=== PATIENT | male | born 1935 | race Caucasian/White ===

== ENCOUNTER 2017-11-12 05:45 | Day surgery (SDC) | payer MEDICARE, BC ==
[2017-11-12] MEDS ORDERED: Midazolam 1 MG/ML 2 ML SDV ONE (06:19)
[2017-11-12] MEDS ORDERED: fentaNYL 100 MCG/2 ML SDV ONE ×2 (06:19→06:21)
[2017-11-12] MEDS: Sodium Chloride 0.9% 10 ML Syringe FLUSH PRN (06:21)
[2017-11-12] MEDS: Dextrose 5%-0.45% NaCl 1,000 ML IV SCH (06:21)
[2017-11-12] MEDS: fentaNYL 100 MCG/2 ML SDV IV ONE ×2 (07:06→07:07)
[2017-11-12] MEDS: Midazolam 1 MG/ML 2 ML SDV IV ONE ×4 (07:07→07:20)
--- NOTE | 2017-11-12 08:26 | OR ---
DATE: 11/12/2017 PROCEDURE PERFORMED: Total colonoscopy. INSTRUMENT USED: PCF-H180AL Olympus video colonoscope. PREMEDICATIONS: Fentanyl 100 mcg intravenous and Versed 3 mg intravenous. Nasal O2 cannula. The procedure was done under pulse oximetry, BP recording, and case monitor. INDICATION: The patient with progressive constipation, unexplained and not responsive to medical measures. Colonoscopic examination is done for detection of any polypoid lesions and removal, endoscopic hemostasis therapy if needed. DESCRIPTION OF PROCEDURE: Initial rectal exam was unremarkable. Rigid anoscopy was normal. The colonoscope was passed with ease up to the ileocecal area, photographs were taken of the normal-appearing cecum identified by landmark of double-bulged ileocecal folds. No bleeding was noted from any of the visualized areas at the commencement of the examination. No stricture. No vascular ectasia. No large isolated ulcerations seen. No evidence of diffuse inflammatory bowel disease in the form of friability, contact bleeding, or ulcerations. No polyp or tumor mass identified. Probing the proximal sides of folds and flexures, using adequate distention and clearing of the stool material, withdrawal of the scope was made, cecum to rectum time over 6 minutes. No bleeding was noted from any of the visualized areas at the completion of examination. IMPRESSION: Normal study. The patient tolerated the procedure well. [facility] /[id number]
== END 2017-11-12 09:30 | disposition home or self-care (01) ==
LOC: DL.ENDO 05:45
PROVIDERS: ATTEND Internal Medicine Gastroenterology
DX: K59.00 Constipation, unspecified (principal); I10 Essential (primary) hypertension; E03.9 Hypothyroidism, unspecified; F41.1 Generalized anxiety disorder; E87.6 Hypokalemia; Z88.8 Allergy status to other drugs, medicaments and biological substances
CPT/HCPCS: 45378; J2250; J7042; J7050; J3010

== ENCOUNTER 2020-06-18 12:11 | Inpatient (IN) | payer MEDICARE, BC, OTHER ==
[2020-06-18] MEDS ORDERED: Ondansetron 4 MG Tab.DIS PO PRN (12:44)
[2020-06-18] MEDS ORDERED: Docusate Sodium 100 MG Cap PO PRN (12:44)
[2020-06-18] MEDS ORDERED: Acetaminophen 325 MG Tab PO PRN (12:44)
[2020-06-18] MEDS ORDERED: Potassium Chloride 20 MEQ in Premix Bag 1 BAG IV ONE (13:00)
[2020-06-18] MEDS ORDERED: Levothyroxine 25 MCG Tab PO SCH (13:00)
[2020-06-18 13:49] LABS: ANION GAP 13.4 mEq/L (7-13)
[2020-06-18] MEDS: Dexamethasone 4 MG/ML SDV IVPUSH SCH (14:03)
[2020-06-18] MEDS: Sodium Chloride 0.9% 1,000 ML IV SCH ×2 (14:09→21:02)
--- NOTE | 2020-06-18 19:16 | HP ---
CHIEF COMPLAINT: Generalized weakness and hypokalemia. HISTORY OF PRESENT ILLNESS: The patient is an 85-year-old gentleman who was admitted directly from [facility] [address] in [facility] because the patient was seen by Dr. Jonas today and the patient has been complaining of just feeling weak, poor appetite, and his legs were buckling, and almost fell because of the weakness. He was seen at the clinic and had some lab workup done. Potassium was remarkable for low potassium of 2.5. Because of this and signs of dehydration, the patient was then admitted for further evaluation and management. The patient denies though any fever, chills, chest pain, shortness of breath, diarrhea, abdominal pain, nor any other complaints. PAST MEDICAL HISTORY: Remarkable for bladder cancer, is being followed by Dr. Ramon. He has history of hypertension, hypothyroidism. FAMILY HISTORY: Noncontributory. SOCIAL HISTORY: The patient is a nonsmoker, non-alcohol drinker. REVIEW OF SYSTEMS: As in HPI. The rest of the review of systems is negative. MEDICATIONS: Amlodipine, potassium chloride, Keytruda, levothyroxine, fish oral, chlorthalidone, aspirin. ALLERGIES: Lipitor. PHYSICAL EXAMINATION: General: The patient is alert and oriented, but looks weak, not in any acute distress. Vital Signs: Blood pressure is 164/91, pulse of 73, respirations of 18, temperature of 98.4. SHEENT: Normocephalic. Skin turgor diminished. Mucous membranes dry. There are pink palpebral conjunctivae. Sclerae anicteric. No JVD. No lymphadenopathy. Heart: Regular rate and rhythm. Normal S1 and S2. No gallops. No rubs. Lungs: Equal bilaterally. No crackles, no wheezing. Abdomen: Soft, nontender. Bowel sounds positive. Extremities: Negative for any pedal edema. No calf tenderness. LABORATORY DATA: Lab workup from the clinic magnesium is 1.9, creatinine is 1.7, potassium is 2.5. IMPRESSION: 1. Hypokalemia. 2. Generalized weakness. 3. Dehydration. 4. Hypertension. 5. History of bladder cancer. TREATMENT PLAN: The patient is going to be admitted to General Medicine floor. He will be started on IV fluids and potassium repleted. He will be placed on telemetry while potassium being repleted. We will also check for a CBC, a urinalysis, and we will also check the patient for COVID-19 and the rest of the management as necessary. The patient is full code. [facility] /[id number]
[2020-06-18] MEDS: Potassium Chloride 10 MEQ Tab.ER PO SCH (20:53)
[2020-06-19] MEDS: Sodium Chloride 0.9% 1,000 ML IV SCH ×3 (05:00→21:20)
[2020-06-19] MEDS: Levothyroxine 50 MCG Tab PO SCH (05:03)
[2020-06-19] MEDS: Levothyroxine 25 MCG Tab PO SCH (05:04)
[2020-06-19] MEDS: Potassium Chloride 10 MEQ Tab.ER PO SCH ×2 (08:15→21:19)
[2020-06-19] MEDS: amLODIPine 5 MG Tab PO SCH (08:15)
[2020-06-19] MEDS: Enoxaparin 30 MG/0.3 ML Syringe SUBCUT SCH (08:16)
[2020-06-19] MEDS: Dexamethasone 4 MG/ML SDV IVPUSH SCH (08:16)
[2020-06-19] MEDS ORDERED: Potassium Chloride 10 MEQ Tab.ER PO ONE (08:32)
--- NOTE | 2020-06-19 09:02 | PN ---
DATE: 06/19/2020 SUBJECTIVE: The patient is feeling much better this morning as compared to yesterday. His appetite is slowly improving. The patient denies any chest pain or shortness of breath, fever, chills, abdominal pain, or any other complaints. LABORATORY WORKUP: This morning, potassium is 2.7, which is still low. BUN is 24, glucose is 122. The rest of the lab workup is within normal limits. OBJECTIVE: Vital Signs: Blood pressure is 148/78, pulse of 58, respirations of 18, temperature of 98.2, saturation is 97% on room air. Heart: Regular rate and rhythm. Normal S1 and S2. No gallops. No rubs. Lungs: Equal bilaterally. No crackles. No wheezing. Abdomen: Soft, nontender. Bowel sounds positive. Extremities: Negative for any pedal edema. No calf tenderness. MEDICATIONS: Reviewed. PLAN: We will continue with his present management. I am going to give additional potassium today and we will recheck potassium in a.m. [facility] /[id number]
[2020-06-19 10:42] LABS: ANION GAP 12.7 mEq/L (7-13)
[2020-06-19] MEDS: Aspirin 81 MG Tab.EC PO SCH (12:23)
[2020-06-20] MEDS: Levothyroxine 50 MCG Tab PO SCH ×2 (04:47→05:16)
[2020-06-20] MEDS: Levothyroxine 25 MCG Tab PO SCH ×2 (04:47→05:16)
[2020-06-20 06:46] LABS: ANION GAP 10.2 mEq/L (7-13); CHLORIDE,CL 102 mmol/L (98-107); SODIUM,NA 137 mmol/L (136-145)
[2020-06-20] MEDS: amLODIPine 5 MG Tab PO SCH (08:14)
[2020-06-20] MEDS: Aspirin 81 MG Tab.EC PO SCH (08:14)
[2020-06-20] MEDS: Enoxaparin 30 MG/0.3 ML Syringe SUBCUT SCH (08:14)
[2020-06-20] MEDS: Potassium Chloride 10 MEQ Tab.ER PO SCH ×3 (08:14→17:40)
[2020-06-20] MEDS ORDERED: Dexamethasone 2 MG Tab PO ONE (16:20)
[2020-06-20] MEDS: Dexamethasone 4 MG/ML SDV IVPUSH SCH (16:28)
[2020-06-20] MEDS ORDERED: Potassium Chloride 10 MEQ Tab.ER PO ONE (18:01)
[2020-06-20] MEDS: Sodium Chloride 0.9% 1,000 ML IV SCH (18:19)
[2020-06-20] MEDS: Potassium Chloride 10 MEQ in Premix Bag 1 BAG IV SCH ×5 (18:23→22:57)
--- NOTE | 2020-06-20 19:42 | PCM.PN ---
- General Info Date of Service: 06/20/20 Subjective Update: Patient seen and examined today. He is improving but cannot say exactly how. He is not requiring oxygen. He was anticipating discharge today however, potassium low at 2.7. Functional Status: Reports: Pain Controlled - Review of Systems General: Reports: Weakness HEENT: Reports: No Symptoms Pulmonary: Reports: Cough. Denies: Shortness of Breath Cardiovascular: Reports: No Symptoms Gastrointestinal: Reports: No Symptoms Genitourinary: Reports: No Symptoms Musculoskeletal: Reports: No Symptoms Skin: Reports: No Symptoms Neurological: Reports: No Symptoms Psychiatric: Reports: No Symptoms - Patient Data Vitals - Most Recent: Last Vital Signs Temp 98.4 F 06/20/20 16:00 Pulse 62 06/20/20 16:00 Resp 18 06/20/20 16:00 BP 138/65 06/20/20 16:00 Pulse Ox 100 06/20/20 16:00 Weight - Most Recent: 136 lb I&O - Last 24 Hours: Intake & Output 06/20/20 06/20/20 06/20/20 06:59 14:59 22:59 Intake Total 200 340 300 Output Total 375 Balance -175 340 300 Lab Results Last 24 Hours: Laboratory Results - last 24 hr 06/20/20 06/20/20 06/20/20 Range/Units 06:18 06:18 16:53 Sodium 137 (136-145) mmol/L Potassium 3.2 L 2.7 L (3.5-5.1) mmol/L Chloride 102 (98-107) mmol/L Carbon Dioxide 28 (21-32) mmol/L Anion Gap 10.2 (7-13) mEq/L BUN 20 H (7-18) mg/dL Creatinine 1.14 (0.70-1.30) mg/dL Est Cr Clr Drug Dosing 42.09 mL/min Estimated GFR (MDRD) > 60 Glucose 100 H (74-99) mg/dL Calcium 8.2 L (8.5-10.1) mg/dL Magnesium 1.7 L (1.8-2.4) mg/dL Med Orders - Current: Current Medications Acetaminophen (Tylenol) 650 mg PO Q4H PRN PRN Reason: Pain (Mild 1-3)/fever Amlodipine Besylate (Norvasc) 5 mg PO DAILY [facility] Last Admin: 06/20/20 08:14 Dose: 5 mg Documented by: Aspirin (Halfprin) 81 mg PO DAILY [facility] Last Admin: 06/20/20 08:14 Dose: 81 mg Documented by: Dexamethasone (Dexamethasone) 6 mg IVPUSH DAILY [facility] Stop: 06/27/20 09:01 Last Admin: 06/20/20 16:28 Dose: Not Given Documented by: Docusate Sodium (Colace) 100 mg PO BID PRN PRN Reason: Constipation Enoxaparin Sodium (Lovenox) 30 mg SUBCUT DAILY [facility] Last Admin: 06/20/20 08:14 Dose: 30 mg Documented by: Sodium Chloride (Normal Saline) 1,000 mls @ 125 mls/hr IV ASDIRECTED [facility] Last Admin: 06/20/20 18:19 Dose: 125 mls/hr Documented by: Potassium Chloride 10 meq/ (Premix) 100 mls @ 100 mls/hr IV Q1H [facility] Stop: 06/20/20 23:59 Last Admin: 06/20/20 19:33 Dose: 100 mls/hr Documented by: Levothyroxine Sodium (Levothyroxine) 12.5 mcg PO ACBREAKFAST [facility] Last Admin: 06/20/20 05:16 Dose: Not Given Documented by: Levothyroxine Sodium (Synthroid) 50 mcg PO ACBREAKFAST [facility] Last Admin: 06/20/20 05:16 Dose: Not Given Documented by: Ondansetron HCl (Zofran Odt) 4 mg PO Q4H PRN PRN Reason: nausea, able to take PO Last Admin: 06/19/20 08:16 Dose: 4 mg Documented by: Potassium Chloride (Klor-Con 10) 20 meq PO BIDMEALS [facility] Last Admin: 06/20/20 17:40 Dose: Not Given Documented by: Discontinued Medications Dexamethasone (Dexamethasone) 6 mg PO ONETIME ONE Stop: 06/20/20 16:21 Last Admin: 06/20/20 16:51 Dose: 6 mg Documented by: Potassium Chloride 20 meq/ (Premix) 100 mls @ 50 mls/hr IV ONETIME ONE Stop: 06/18/20 14:59 Last Admin: 06/18/20 14:02 Dose: 50 mls/hr Documented by: Influenza Virus Vaccine (Pharmacy To Dose - Influenza Vaccine) 1 each IM DAILY [facility] Last Admin: 06/20/20 17:40 Dose: Not Given Documented by: Influenza Virus Vaccine (Fluad Quad Syringe) 60 mcg IM .ONCE ONE Stop: 06/20/20 16:31 Potassium Chloride (Klor-Con 10) 20 meq PO BID [facility] Last Admin: 06/19/20 21:19 Dose: 20 meq Documented by: Potassium Chloride (Klor-Con 10) 40 meq PO ONETIME ONE Stop: 06/19/20 08:33 Last Admin: 06/19/20 09:03 Dose: 40 meq Documented by: Potassium Chloride (Klor-Con 10) 40 meq PO ONETIME ONE Stop: 06/20/20 18:02 Last Admin: 06/20/20 18:25 Dose: 40 meq Documented by: - Exam General: Alert, Oriented HEENT: Pupils Equal, Pupils Reactive, EOMI, Mucous Membr. Moist/[place] Neck: Supple Lungs: Clear to Auscultation, Normal Respiratory Effort Cardiovascular: Regular Rate, Regular Rhythm GI/Abdominal Exam: Normal Bowel Sounds, Soft, Non-Tender, No Organomegaly, No Distention, No Abnormal Bruit, No Mass, Pelvis Stable Back Exam: Normal Inspection, Full Range of Motion Extremities: Normal Inspection, Normal Range of Motion, Non-Tender, No Pedal Edema, Normal Capillary Refill Skin: Warm, Dry, Intact Neurological: No New Focal Deficit Psy/Mental Status: Alert, Normal Affect, Normal Mood Sepsis Event Note - Evaluation Sepsis Screening Result: No Definite Risk - Focused Exam Vital Signs: Vital Signs Temp Pulse Resp BP BP Pulse Ox 06/20/20 16:00 98.4 F 62 18 138/65 100 06/20/20 12:00 98.5 F 62 18 126/61 97 06/20/20 08:14 139/81 06/20/20 08:00 98.2 F 59 L 18 139/81 98 - Problem List Review Problem List Initiated/Reviewed/Updated: Yes - My Orders Last 24 Hours: My Active Orders 06/20/20 18:00 Potassium Chloride [KCl 10 MEQ in Water 100 ML] 10 meq Premix Bag 1 bag IV Q1H - Plan Plan:: Hypokalemia Potassium still low at 2.7 Replace more aggressively with IV potassium 60 mEq and p.o. potassium 60 mEq tonight Repeat potassium check tomorrow morning COVID-19 infection Continue dexamethasone and Lovenox Generalized weakness Encourage oral intake Hypertension Continue antihypertensives Dehydration Encourage oral fluids
[2020-06-21] MEDS: Potassium Chloride 10 MEQ in Premix Bag 1 BAG IV SCH (00:22)
[2020-06-21] MEDS: Sodium Chloride 0.9% 1,000 ML IV SCH (01:30)
[2020-06-21] MEDS: Levothyroxine 50 MCG Tab PO SCH (06:31)
[2020-06-21] MEDS: Levothyroxine 25 MCG Tab PO SCH (06:31)
[2020-06-21 07:01] LABS: ANION GAP 11.9 mEq/L (7-13); CHLORIDE,CL 103 mmol/L (98-107); SODIUM,NA 137 mmol/L (136-145)
[2020-06-21] MEDS: Dexamethasone 4 MG/ML SDV IVPUSH SCH (08:15)
[2020-06-21] MEDS: Potassium Chloride 10 MEQ Tab.ER PO SCH (08:15)
[2020-06-21] MEDS: Aspirin 81 MG Tab.EC PO SCH (08:15)
[2020-06-21] MEDS: amLODIPine 5 MG Tab PO SCH (08:16)
[2020-06-21] MEDS: Enoxaparin 30 MG/0.3 ML Syringe SUBCUT SCH (08:18)
--- NOTE | 2020-06-21 11:20 | PCM.DCSUM1 ---
Discharge Summary - Hospital Course Free Text/Narrative:: Patient is an 85-year-old male with a medical history of bladder cancer, hypertension, chronic hypokalemia and hypothyroidism who presented with generalized weakness and poor appetite. Patient was found to have severe hypokalemia with a potassium of 2.5 and he was dehydrated. He reported not being compliant with his home potassium medication. He also tested positive for COVID-19. Patient had potassium aggressively replaced and received IV fluids. Hospitalization course was unremarkable. Diagnosis: Stroke: No - Discharge Data Discharge Date: 06/21/20 Discharge Disposition: Home, Self-Care 01 Condition: Good - Referral to Home Health Primary Care Physician: Phani Jonas MD - Discharge Plan *PRESCRIPTION DRUG MONITORING PROGRAM REVIEWED*: Not Applicable *COPY OF PRESCRIPTION DRUG MONITORING REPORT IN PATIENT YUNIEL: Not Applicable Prescriptions/Med Rec: dexAMETHasone [Dexamethasone] 6 mg PO DAILY #6 tab Rivaroxaban [Xarelto] 10 mg PO DAILY #30 tab Home Medications: Home Meds Chlorthalidone 25 mg PO DAILY 11/11/17 [History] Docusate Sodium 100 mg PO ASDIRECTED PRN 11/11/17 [History] Pembrolizumab [Keytruda] 1 dose IV .[id number] 11/11/17 [History] Potassium Chloride [Klor-Con M20] 40 meq PO BID 11/11/17 [History] amLODIPine [Norvasc] 5 mg PO DAILY 11/11/17 [History] Levothyroxine 12.5 mcg PO DAILY 06/18/20 [History] Levothyroxine [Synthroid] 50 mcg PO ACBREAKFAST 06/18/20 [History] Pravastatin [Pravachol] 20 mg PO DAILY 06/18/20 [History] Rivaroxaban [Xarelto] 10 mg PO DAILY #30 tab 06/21/20 [Rx] dexAMETHasone [Dexamethasone] 6 mg PO DAILY #6 tab 06/21/20 [Rx] Referrals: Martinez Jonas MD [Primary Care Provider] - - Discharge Summary/Plan Comment DC Time >30 min.: Yes - General Info Date of Service: 06/21/20 Admission Dx/Problem (Free Text: Generalized weakness COVID-19 infection Severe hypokalemia Dehydration Subjective Update: Patient seen and examined today. He is not requiring oxygen. Discussed with patient to be compliant with his potassium. Functional Status: Reports: Pain Controlled - Review of Systems General: Reports: No Symptoms HEENT: Reports: No Symptoms Pulmonary: Reports: No Symptoms Cardiovascular: Reports: No Symptoms Gastrointestinal: Reports: No Symptoms Genitourinary: Reports: No Symptoms Musculoskeletal: Reports: No Symptoms Skin: Reports: No Symptoms Neurological: Reports: No Symptoms Psychiatric: Reports: No Symptoms - Patient Data Vitals - Most Recent: Last Vital Signs Temp 98.4 F 06/21/20 08:00 Pulse 61 06/21/20 08:00 Resp 18 06/21/20 08:00 BP 151/85 H 06/21/20 08:16 Pulse Ox 98 06/21/20 08:00 Weight - Most Recent: 136 lb I&O - Last 24 hours: Intake & Output 06/20/20 06/21/20 06/21/20 22:59 06:59 14:59 Intake Total 1418 1246 120 Output Total 400 500 Balance 1018 746 120 Lab Results - Last 24 hrs: Laboratory Results - last 24 hr 06/20/20 06/21/20 Range/Units 16:53 06:25 Sodium 137 (136-145) mmol/L Potassium 2.7 L 3.9 (3.5-5.1) mmol/L Chloride 103 (98-107) mmol/L Carbon Dioxide 26 (21-32) mmol/L Anion Gap 11.9 (7-13) mEq/L BUN 18 (7-18) mg/dL Creatinine 1.08 (0.70-1.30) mg/dL Est Cr Clr Drug Dosing 44.43 mL/min Estimated GFR (MDRD) > 60 Glucose 118 H (74-99) mg/dL Calcium 7.8 L (8.5-10.1) mg/dL Med Orders - Current: Current Medications Acetaminophen (Tylenol) 650 mg PO Q4H PRN PRN Reason: Pain (Mild 1-3)/fever Amlodipine Besylate (Norvasc) 5 mg PO DAILY [facility] Last Admin: 06/21/20 08:16 Dose: 5 mg Documented by: Aspirin (Halfprin) 81 mg PO DAILY [facility] Last Admin: 06/21/20 08:15 Dose: 81 mg Documented by: Dexamethasone (Dexamethasone) 6 mg IVPUSH DAILY [facility] Stop: 06/27/20 09:01 Last Admin: 06/21/20 08:15 Dose: 6 mg Documented by: Docusate Sodium (Colace) 100 mg PO BID PRN PRN Reason: Constipation Enoxaparin Sodium (Lovenox) 30 mg SUBCUT DAILY [facility] Last Admin: 06/21/20 08:18 Dose: 30 mg Documented by: Sodium Chloride (Normal Saline) 1,000 mls @ 125 mls/hr IV ASDIRECTED [facility] Last Admin: 06/21/20 01:30 Dose: 125 mls/hr Documented by: Levothyroxine Sodium (Levothyroxine) 12.5 mcg PO ACBREAKFAST [facility] Last Admin: 06/21/20 06:31 Dose: 12.5 mcg Documented by: Levothyroxine Sodium (Synthroid) 50 mcg PO ACBREAKFAST [facility] Last Admin: 06/21/20 06:31 Dose: 50 mcg Documented by: Ondansetron HCl (Zofran Odt) 4 mg PO Q4H PRN PRN Reason: nausea, able to take PO Last Admin: 06/19/20 08:16 Dose: 4 mg Documented by: Potassium Chloride (Klor-Con 10) 20 meq PO BIDMEALS [facility] Last Admin: 06/21/20 08:15 Dose: 20 meq Documented by: Discontinued Medications Dexamethasone (Dexamethasone) 6 mg PO ONETIME ONE Stop: 06/20/20 16:21 Last Admin: 06/20/20 16:51 Dose: 6 mg Documented by: Potassium Chloride 20 meq/ (Premix) 100 mls @ 50 mls/hr IV ONETIME ONE Stop: 06/18/20 14:59 Last Admin: 06/18/20 14:02 Dose: 50 mls/hr Documented by: Potassium Chloride 10 meq/ (Premix) 100 mls @ 100 mls/hr IV Q1H [facility] Stop: 06/20/20 23:59 Last Infusion: 06/21/20 01:29 Dose: Infused Documented by: Influenza Virus Vaccine (Pharmacy To Dose - Influenza Vaccine) 1 each IM DAILY [facility] Last Admin: 06/20/20 17:40 Dose: Not Given Documented by: Influenza Virus Vaccine (Fluad Quad [id number] Syringe) 60 mcg IM .ONCE ONE Stop: 06/21/20 11:01 Last Admin: 06/21/20 11:11 Dose: 60 mcg Documented by: Potassium Chloride (Klor-Con 10) 20 meq PO BID [facility] Last Admin: 06/19/20 21:19 Dose: 20 meq Documented by: Potassium Chloride (Klor-Con 10) 40 meq PO ONETIME ONE Stop: 06/19/20 08:33 Last Admin: 06/19/20 09:03 Dose: 40 meq Documented by: Potassium Chloride (Klor-Con 10) 40 meq PO ONETIME ONE Stop: 06/20/20 18:02 Last Admin: 06/20/20 18:25 Dose: 40 meq Documented by: - Exam General: Reports: Alert, Oriented HEENT: Reports: Pupils Equal, Pupils Reactive, EOMI, Mucous Membr. Moist/[place] Neck: Reports: Supple Lungs: Reports: Clear to Auscultation, Normal Respiratory Effort Cardiovascular: Reports: Regular Rate, Regular Rhythm GI/Abdominal Exam: Normal Bowel Sounds, Soft, Non-Tender, No Organomegaly, No Distention, No Abnormal Bruit, No Mass, Pelvis Stable Back Exam: Reports: Normal Inspection, Full Range of Motion Extremities: Normal Inspection, Normal Range of Motion, Non-Tender, No Pedal Edema, Normal Capillary Refill Skin: Reports: Warm, Dry, Intact Neurological: Reports: No New Focal Deficit Psy/Mental Status: Reports: Alert, Normal Affect, Normal Mood
== END 2020-06-21 13:20 | disposition home or self-care (01) | DRG 640 ==
LOC: DL.MS 12:11
PROVIDERS: ADMIT Internal Medicine; ATTEND Internal Medicine
PROC: 3E02340 Introduction of Influenza Vaccine into Muscle, Percutaneous Approach (ICD-10-PCS; principal; 2020-06-18)
PROC: 8E0ZXY6 Isolation (ICD-10-PCS; 2020-06-18)
DX: E87.6 Hypokalemia (principal); U07.1 COVID-19; E86.0 Dehydration; I10 Essential (primary) hypertension; E03.9 Hypothyroidism, unspecified; Z85.51 Personal history of malignant neoplasm of bladder; Z23 Encounter for immunization; Z88.8 Allergy status to other drugs, medicaments and biological substances; Z79.899 Other long term (current) drug therapy
CPT/HCPCS: 36415; 80048; 80053; 81001; 83735; 84132; 85025; 85379; 86140; 90653; A9270-GY; G0008; J1100; J1650; J3480; J7030; J8540; U0002

== ENCOUNTER 2021-04-29 20:30 | Observation (INO) | payer MEDICARE, BC ==
[2021-04-29] MEDS ORDERED: Sodium Chloride 0.9% 1,000 ML IV ONE (21:20)
[2021-04-29 22:11] LABS: ANION GAP 16.8 mEq/L (7-13)
--- NOTE | 2021-04-29 22:14 | CT ---
PROCEDURE INFORMATION: Exam: CT Head Without Contrast Exam date and time: 04/29/2021 9:33 PM Age: 86 years old Clinical indication: Other: Weakness, nausea TECHNIQUE: Imaging protocol: Computed tomography of the head without contrast. Total images: 148 Radiation optimization: All CT scans at this facility use at least one of these dose optimization techniques: automated exposure control; mA and/or kV adjustment per patient size (includes targeted exams where dose is matched to clinical indication); or iterative reconstruction. COMPARISON: No relevant prior studies available. FINDINGS: Brain: Deep white matter hypodensity compatible with chronic small vessel ischemic change. Cerebral ventricles: Prominent cerebral ventricles. Paranasal sinuses: Visualized sinuses are unremarkable. No fluid levels. Mastoid air cells: Visualized mastoid air cells are well aerated. Vasculature: Marked calcification involving the right and left carotid arteries. also marked calcification involving segments of the right and left MCAs. Bones/joints: Unremarkable. No acute fracture. Soft tissues: See "Vasculature" finding. IMPRESSION: 1. No acute intracranial process. 2. Prominent calcification of the carotid arteries including prominent segmental areas of calcification right and left MCAs. 3. Prominent ventricles possibly out of proportion to degree of volume loss. Correlate clinically for any evidence of underlying normal pressure hydrocephalus.
--- NOTE | 2021-04-29 22:15 | CR ---
PROCEDURE INFORMATION: Exam: XR Chest Exam date and time: 04/29/2021 9:51 PM Age: 86 years old Clinical indication: Other: Weakness, nausea TECHNIQUE: Imaging protocol: XR of the chest. Views: 1 view. Total images: 1 COMPARISON: No relevant prior studies available. FINDINGS: Lungs: Unremarkable. No consolidation. Pleural spaces: Unremarkable. No pleural effusion. No pneumothorax. Heart/Mediastinum: Unremarkable. No cardiomegaly. Vasculature: Tortuous thoracic aorta. Bones/joints: Unremarkable. IMPRESSION: No acute cardiopulmonary disease.
[2021-04-29] MEDS ORDERED: Potassium Chloride 20 MEQ in Premix Bag 1 BAG IV ONE (22:19)
--- NOTE | 2021-04-29 22:28 | EDM.PDOC ---
ED HPI GENERAL MEDICAL PROBLEM - General Chief Complaint: General Stated Complaint: 99.3* , SICK TO HIS STOMACH AND DIS ORIENTATED. Time Seen by Provider: 04/29/21 21:05 Source of Information: Reports: Patient, Family, RN History Limitations: Reports: No Limitations - History of Present Illness INITIAL COMMENTS - FREE TEXT/NARRATIVE: ED with c/o feeling weak past 3 days, No appetite, nausea no emesis, SO reports has drank few liquids but not eaten anythig for past 3 days. slipped getting out of bed 2 nights prior no injury. Did not hit heat. SO reported low grade temp tonight, no cough incontinent 2 nights prior. No home medications past 3 days - Related Data Allergies Allergy/AdvReac Type Severity Reaction Status Date / Time atorvastatin [From Lipitor] AdvReac Muscle Verified 04/29/21 20:57 Aches Home Meds: Home Meds Chlorthalidone 25 mg PO DAILY 11/11/17 [History] Docusate Sodium 100 mg PO DAILY PRN 11/11/17 [History] Pembrolizumab [Keytruda] 1 dose IV .[id number] 11/11/17 [History] Potassium Chloride [Klor-Con M20] 40 meq PO BID 11/11/17 [History] amLODIPine [Norvasc] 7.5 mg PO DAILY 11/11/17 [History] Levothyroxine 12.5 mcg PO DAILY 06/18/20 [History] Levothyroxine [Synthroid] 50 mcg PO ACBREAKFAST 06/18/20 [History] Aspirin [Davey Chewable] 81 mg PO DAILY 04/30/21 [History] Magnesium Oxide 250 mg PO DAILY 04/30/21 [History] Multivitamin [Multi-Vitamin Daily] 1 tab PO DAILY 04/30/21 [History] Past Medical History HEENT History: Reports: Impaired Vision, Other (See Below) Other HEENT History: WEARS CORRECTIVE LENS Cardiovascular History: Reports: High Cholesterol, Hypertension Respiratory History: Reports: None Gastrointestinal History: Reports: Chronic Constipation, Other (See Below) Other Gastrointestinal History: S/P HYPOKALEMIA. RIGHT INGUINAL HERNIA Genitourinary History: Reports: Other (See Below) Other Genitourinary History: HX OF URINARY CA Musculoskeletal History: Reports: Fracture Other Musculoskeletal History: HX OF FRACTURE IN RIGHT ARM Neurological History: Reports: None Psychiatric History: Reports: Anxiety Endocrine/Metabolic History: Reports: Hypothyroidism Hematologic History: Reports: None Immunologic History: Reports: Immunosuppression Oncologic (Cancer) History: Reports: Bladder Dermatologic History: Reports: Other (See Below) Other Dermatologic History: HX OF HERPES ZOSTER - Infectious Disease History Infectious Disease History: Reports: Influenza, Measles - Past Surgical History Head Surgeries/Procedures: Reports: None HEENT Surgical History: Reports: Adenoidectomy, Tonsillectomy Cardiovascular Surgical History: Reports: None Respiratory Surgical History: Reports: None GI Surgical History: Reports: Colonoscopy Male Surgical History: Reports: None Endocrine Surgical History: Reports: None Neurological Surgical History: Reports: None Musculoskeletal Surgical History: Reports: None Oncologic Surgical History: Reports: None Dermatological Surgical History: Reports: None Social & Family History - Family History Family Medical History: No Pertinent Family History - Tobacco Use Tobacco Use Status *Q: Unknown Ever Used Tobacco - Caffeine Use Caffeine Use: Reports: Tea Other Caffeine Use: 'ONCE IN AWHILE' - Living Situation & Occupation Living situation: Reports: , with Family Occupation: Retired ED ROS GENERAL - Review of Systems Review Of Systems: Comprehensive ROS is negative, except as noted in HPI. Constitutional: Reports: Fever, Malaise, Weakness, Fatigue HEENT: Reports: Glasses Respiratory: Denies: Shortness of Breath, Cough Cardiovascular: Denies: Chest Pain, Edema GI/Abdominal: Reports: Anorexia, Other (Last BM 3 days prior). Denies: Abdominal Pain, Black Stool, Constipation, Diarrhea Skin: Reports: No Symptoms Neurological: Reports: No Symptoms ED EXAM, GENERAL - Physical Exam Exam: See Below Exam Limited By: No Limitations General Appearance: Alert, Mild Distress, Thin Eye Exam: Bilateral Eye: EOMI Ears: Normal External Exam, Hearing Loss Nose: Normal Inspection Throat/Mouth: Normal Inspection Head: Atraumatic, Normocephalic Neck: Normal Inspection Respiratory/Chest: No Respiratory Distress, Lungs Clear, Normal Breath Sounds Cardiovascular: Regular Rate, Rhythm, Tachycardia GI/Abdominal: Normal Bowel Sounds, Soft, Non-Tender. No: Distended, Guarding, Tender Back Exam: No: CVA Tenderness (L), CVA Tenderness (R) Extremities: No Pedal Edema Neurological: Alert, Oriented, Normal Cognition, Other (GCS15) Psychiatric: Normal Affect, Normal Mood Skin Exam: Intact, No Rash #1 Interpretation EKG Date: 04/29/21 Time: 21:03 Rhythm: Other (sinus tachycardia) Rate (Beats/Min): 131 P-Wave: Present QRS: Normal ST-T: Normal QT: Prolonged Course - Vital Signs Last Recorded V/S: Last Vital Signs Temp 99.2 F 04/30/21 23:53 Pulse 67 04/30/21 23:53 Resp 20 04/30/21 23:53 BP 160/85 H 04/30/21 23:53 Pulse Ox 100 05/01/21 00:00 - Orders/Labs/Meds Orders: Medication Orders Acetaminophen (Acetaminophen 325 Mg Tab) 650 mg PO Q4H PRN PRN Reason: Pain (Mild 1-3)/fever Last Admin: 04/30/21 10:42 Dose: 650 mg Documented by: DAMIEN Amlodipine Besylate (Amlodipine 5 Mg Tab *Own Med*) 7.5 mg PO DAILY [facility] Aspirin (Aspirin 81 Mg Tab.Chew) 81 mg PO WITHBREAKFAST [facility] Last Admin: 04/30/21 09:00 Dose: 81 mg Documented by: DAMIEN Chlorthalidone (Chlorthalidone 25 Mg Tab *Own Med*) 25 mg PO DAILY [facility] Docusate Sodium (Docusate Sodium 100 Mg Cap) 100 mg PO BID PRN PRN Reason: Constipation Heparin Sodium (Porcine) (Heparin Sodium 5,000 Units/Ml Vial) 5,000 units SUBCUT Q8HR [facility] Last Admin: 04/30/21 22:39 Dose: Not Given Documented by: Admin: 04/30/21 16:13 Dose: Not Given Documented by: Admin: 04/30/21 06:00 Dose: 5,000 units Documented by: GABRIELE Levothyroxine Sodium (Levothyroxine 25 Mcg Tab *Own Med*) 12.5 mcg PO ACBREAKFAST [facility] Levothyroxine Sodium (Levothyroxine 50 Mcg Tab *Own Med*) 50 mcg PO ACBREAKFAST [facility] Ondansetron HCl (Ondansetron 4 Mg/2 Ml Sdv) 4 mg IVPUSH Q4H PRN PRN Reason: Nausea/Vomiting Last Admin: 04/30/21 09:26 Dose: 4 mg Documented by: DAMIEN Pantoprazole Sodium (Pantoprazole 40 Mg Tab.Cr) 40 mg PO ACBREAKFAST [facility]A Last Admin: 04/30/21 10:43 Dose: 40 mg Documented by: DAMIEN Potassium Chloride 20 Meq Tab.Er *Own Med* 0 each PO BID [facility]A Last Admin: 04/30/21 22:18 Dose: 1 each Documented by: LOCO Sodium Chloride (Sodium Chloride 0.9% 10 Ml Syringe) 10 ml FLUSH ASDIRECTED PRN PRN Reason: Keep Vein Open Last Admin: 04/30/21 22:39 Dose: 10 ml Documented by: LOCO Temazepam (Temazepam 15 Mg Cap) 15 mg PO BEDTIME PRN PRN Reason: Sleep Labs: Laboratory Tests 04/29/21 04/29/21 04/29/21 Range/Units 20:53 20:53 20:53 WBC 10.0 (5.0-10.0) 10^3/uL RBC 5.18 (4.6-6.2) 10^6/uL Hgb 15.9 (14.0-18.0) g/dL Hct 45.1 (40.0-54.0) % MCV 87.1 (80-100) fL MCH 30.7 (27.0-34.0) pg MCHC 35.3 H (33.0-35.0) g/dL Plt Count 213 (150-450) 10^3/uL Neut % (Auto) 72.5 (42.2-75.2) % Lymph % (Auto) 19.2 L (20.5-50.1) % [place] % (Auto) 7.4 (2-8) % Eos % (Auto) 0.7 L (1.0-3.0) % Baso % (Auto) 0.2 (0.0-1.0) % Add Manual Diff Yes Neutrophils % (Manual) 76 H (42-75) % Band Neutrophils % 4 % Lymphocytes % (Manual) 10 L (20-50) % Monocytes % (Manual) 8 (2-8) % Blast Cells % 2 PT (9.0-12.0) SEC INR (0.9-1.2) Sodium 137 (136-145) mmol/L Potassium 2.8 L (3.5-5.1) mmol/L Chloride 97 L (98-107) mmol/L Carbon Dioxide 26 (21-32) mmol/L Anion Gap 16.8 H (7-13) mEq/L BUN 26 H (7-18) mg/dL Creatinine 1.36 H (0.70-1.30) mg/dL Est Cr Clr Drug Dosing 34.17 mL/min Estimated GFR (MDRD) 50 BUN/Creatinine Ratio 19.1 (No establ ref range) Glucose 176 H (70-99) mg/dL Lactic Acid 2.4 H* (0.4-2.0) mmol/L Calcium 9.2 (8.5-10.1) mg/dL Magnesium 1.7 L (1.8-2.4) mg/dL Total Bilirubin 1.0 (0.2-1.0) mg/dL AST 25 (15-37) U/L ALT 25 (16-63) U/L Alkaline Phosphatase 61 (46-116) U/L Troponin I High Sens 14 (<=76) pg/mL B-Natriuretic Peptide 57 (0-100) pg/ml Total Protein 7.5 (6.4-8.2) g/dL Albumin 3.5 (3.4-5.0) g/dL Globulin 4.0 Albumin/Globulin Ratio 0.9 TSH, Ultra Sensitive 3.84 H (0.36-3.74) uIU/mL Urine Color (YELLOW) Urine Appearance (CLEAR) Urine pH (5.0-9.0) Ur Specific [place] (1.005-1.030) Urine Protein (NEGATIVE) Urine Glucose (UA) (NEGATIVE) Urine Ketones (NEGATIVE) Urine Occult Blood (NEGATIVE) Urine Nitrite (NEGATIVE) Urine Bilirubin (NEGATIVE) Urine Urobilinogen (0.2-1.0) mg/dL Ur Leukocyte Esterase (NEGATIVE) SARS-CoV-2 RNA (RONALD) (NEGATIVE) 04/29/21 04/29/21 04/29/21 Range/Units 20:55 22:25 22:29 WBC (5.0-10.0) 10^3/uL RBC (4.6-6.2) 10^6/uL Hgb (14.0-18.0) g/dL Hct (40.0-54.0) % MCV (80-100) fL MCH (27.0-34.0) pg MCHC (33.0-35.0) g/dL Plt Count (150-450) 10^3/uL Neut % (Auto) (42.2-75.2) % Lymph % (Auto) (20.5-50.1) % [place] % (Auto) (2-8) % Eos % (Auto) (1.0-3.0) % Baso % (Auto) (0.0-1.0) % Add Manual Diff Neutrophils % (Manual) (42-75) % Band Neutrophils % % Lymphocytes % (Manual) (20-50) % Monocytes % (Manual) (2-8) % Blast Cells % PT 11.1 (9.0-12.0) SEC INR 1.1 (0.9-1.2) Sodium (136-145) mmol/L Potassium (3.5-5.1) mmol/L Chloride (98-107) mmol/L Carbon Dioxide (21-32) mmol/L Anion Gap (7-13) mEq/L BUN (7-18) mg/dL Creatinine (0.70-1.30) mg/dL Est Cr Clr Drug Dosing mL/min Estimated GFR (MDRD) BUN/Creatinine Ratio (No establ ref range) Glucose (70-99) mg/dL Lactic Acid (0.4-2.0) mmol/L Calcium (8.5-10.1) mg/dL Magnesium (1.8-2.4) mg/dL Total Bilirubin (0.2-1.0) mg/dL AST (15-37) U/L ALT (16-63) U/L Alkaline Phosphatase (46-116) U/L Troponin I High Sens (<=76) pg/mL B-Natriuretic Peptide (0-100) pg/ml Total Protein (6.4-8.2) g/dL Albumin (3.4-5.0) g/dL Globulin Albumin/Globulin Ratio TSH, Ultra Sensitive (0.36-3.74) uIU/mL Urine Color Yellow (YELLOW) Urine Appearance Clear (CLEAR) Urine pH 7.0 (5.0-9.0) Ur Specific [place] 1.025 (1.005-1.030) Urine Protein Negative (NEGATIVE) Urine Glucose (UA) Negative (NEGATIVE) Urine Ketones Negative (NEGATIVE) Urine Occult Blood Negative (NEGATIVE) Urine Nitrite Negative (NEGATIVE) Urine Bilirubin Negative (NEGATIVE) Urine Urobilinogen 0.2 (0.2-1.0) mg/dL Ur Leukocyte Esterase Negative (NEGATIVE) SARS-CoV-2 RNA (RONALD) Negative (NEGATIVE) Meds: Medications Generic Name Dose Route Start Last Admin Trade Name Galindo PRN Reason Stop Dose Admin Acetaminophen 650 mg 04/29/21 23:55 04/30/21 10:42 Acetaminophen 325 Mg Tab PO 650 mg Q4H PRN Administration Pain (Mild 1-3)/fever Amlodipine Besylate 7.5 mg 04/30/21 10:02 Amlodipine 5 Mg Tab *Own Med* PO DAILY [facility] Aspirin 81 mg 04/30/21 08:00 04/30/21 09:00 Aspirin 81 Mg Tab.Chew PO 81 mg WITHBREAKFAST KAYA Administration Chlorthalidone 25 mg 04/30/21 10:05 Chlorthalidone 25 Mg Tab *Own Med* PO DAILY [facility]A Docusate Sodium 100 mg 04/29/21 23:55 Docusate Sodium 100 Mg Cap PO BID PRN Constipation Heparin Sodium (Porcine) 5,000 units 04/30/21 06:00 04/30/21 22:39 Heparin Sodium 5,000 Units/Ml Vial SUBCUT Not Given Q8HR [facility]A Levothyroxine Sodium 12.5 mcg 04/30/21 10:07 Levothyroxine 25 Mcg Tab *Own Med* PO ACBREAKFAST [facility]A Levothyroxine Sodium 50 mcg 04/30/21 10:08 Levothyroxine 50 Mcg Tab *Own Med* PO ACBREAKFAST [facility]A Ondansetron HCl 4 mg 04/29/21 23:55 04/30/21 09:26 Ondansetron 4 Mg/2 Ml Sdv IVPUSH 4 mg Q4H PRN Administration Nausea/Vomiting Pantoprazole Sodium 40 mg 04/30/21 10:00 04/30/21 10:43 Pantoprazole 40 Mg Tab.Cr PO 40 mg ACBREAKFAST KAYA Administration Potassium Chloride 0 each 04/30/21 21:00 04/30/21 22:18 20 Meq Tab.Er *Own PO 1 each Med* BID KAYA Administration Sodium Chloride 10 ml 04/29/21 23:55 04/30/21 22:39 Sodium Chloride 0.9% 10 Ml Syringe FLUSH 10 ml ASDIRECTED PRN Administration Keep Vein Open Temazepam 15 mg 04/29/21 23:55 Temazepam 15 Mg Cap PO BEDTIME PRN Sleep Discontinued Medications Generic Name Dose Route Start Last Admin Trade Name Galindo PRN Reason Stop Dose Admin Amlodipine Besylate 7.5 mg 04/30/21 09:00 04/30/21 08:57 Amlodipine 5 Mg Tab PO 7.5 mg DAILY [facility]A Administration Chlorthalidone 25 mg 04/30/21 09:00 04/30/21 09:00 Chlorthalidone 25 Mg Tab PO 25 mg DAILY [facility] Administration Docusate Sodium/Benzocaine 1 each 04/30/21 12:32 04/30/21 15:18 Benzocaine/Docusate Sodium 20-283 Mg/5 Ml Enema RECTAL 04/30/21 12:33 Not Given ONETIME ONE Sodium Chloride 1,000 mls @ 150 mls/hr 04/29/21 21:20 04/29/21 22:26 Normal Saline IV 04/30/21 03:59 150 mls/hr .BOLUS ONE Administration Potassium Chloride 20 meq/ 100 mls @ 50 mls/hr 04/29/21 22:19 04/29/21 22:27 Premix IV 04/30/21 00:18 50 mls/hr ONETIME ONE Administration Potassium Chloride 10 meq/ 100 mls @ 50 mls/hr 04/29/21 23:45 04/30/21 10:43 Premix IV 04/30/21 11:44 50 mls/hr Q2H KAYA Administration Iopamidol 100 ml 04/30/21 11:11 04/30/21 11:52 Iopamidol 612 Mg/Ml 100 Ml Bottle IVPUSH 04/30/21 11:12 75 ml ONETIME ONE Administration Levothyroxine Sodium 12.5 mcg 04/30/21 06:00 04/30/21 06:00 Levothyroxine 25 Mcg Tab PO 12.5 mcg ACBREAKFAST KAYA Administration Levothyroxine Sodium 50 mcg 04/30/21 06:00 04/30/21 06:00 Levothyroxine 50 Mcg Tab PO 50 mcg ACBREAKFAST KAYA Administration Magnesium Oxide 500 mg 04/30/21 12:00 04/30/21 18:42 Magnesium Oxide 250 Mg Tab PO 04/30/21 18:01 500 mg BIDMEALS KAYA Administration Potassium Chloride 40 meq 04/30/21 09:00 04/30/21 09:00 Potassium Chloride 10 Meq Tab.Er PO 40 meq BID KAYA Administration Departure - Departure Time of Disposition: 23:13 Disposition: Refer to Observation Condition: Fair Clinical Impression: Hypokalemia, Weakness, Hypomagnesemia Hypothyroid Qualifiers: Hypothyroidism type: unspecified Qualified Code(s): E03.9 - Hypothyroidism, unspecified - Discharge Information *PRESCRIPTION DRUG MONITORING PROGRAM REVIEWED*: No *COPY OF PRESCRIPTION DRUG MONITORING REPORT IN PATIENT YUNIEL: No Sepsis Event Note (ED) - Evaluation Sepsis Screening Result: No Definite Risk
[2021-04-29] MEDS ORDERED: Temazepam 15 MG Cap PO PRN (23:55)
[2021-04-29] MEDS ORDERED: Ondansetron 4 MG/2 ML SDV IVPUSH PRN (23:55)
[2021-04-29] MEDS ORDERED: Sodium Chloride 0.9% 10 ML Syringe FLUSH PRN (23:55)
[2021-04-29] MEDS ORDERED: Docusate Sodium 100 MG Cap PO PRN (23:55)
--- NOTE | 2021-04-30 00:14 | PCM.HP ---
H&P History of Present Illness - General Date of Service: 04/30/21 Admit Problem/Dx: Admission Diagnosis/Problem Admission Diagnosis/Problem Weakness Source of Information: Family, Provider - History of Present Illness Initial Comments - Free Text/Narative: presented with weakness, increased confusion has h/o htn, bladder ca, dementia, impaired hearing, noted to have severe hypokalemia, tachycardia met with pt and significant other - both are poor historians, limited insight into prior medical tx., does not know meds, c/o nausea a few days ago then no food intake 3 days, no nausea now, no cp, no sob poor appetite, drinking protein shakes only slipped out of bed few days ago lives with SO, has daughter in [place] - Related Data Allergies/Adverse Reactions: Allergies Allergy/AdvReac Type Severity Reaction Status Date / Time atorvastatin [From Lipitor] AdvReac Muscle Verified 04/29/21 20:57 Aches Home Medications: Home Meds Chlorthalidone 25 mg PO DAILY 11/11/17 [History] Docusate Sodium 100 mg PO ASDIRECTED PRN 11/11/17 [History] Pembrolizumab [Keytruda] 1 dose IV .[id number] 11/11/17 [History] Potassium Chloride [Klor-Con M20] 40 meq PO BID 11/11/17 [History] amLODIPine [Norvasc] 7.5 mg PO DAILY 11/11/17 [History] Levothyroxine 12.5 mcg PO DAILY 06/18/20 [History] Levothyroxine [Synthroid] 50 mcg PO ACBREAKFAST 06/18/20 [History] Pravastatin [Pravachol] 20 mg PO DAILY 06/18/20 [History] Rivaroxaban [Xarelto] 10 mg PO DAILY #30 tab 06/21/20 [Rx] dexAMETHasone [Dexamethasone] 6 mg PO DAILY #6 tab 06/21/20 [Rx] Past Medical History HEENT History: Reports: Impaired Vision, Other (See Below) Other HEENT History: WEARS CORRECTIVE LENS Cardiovascular History: Reports: High Cholesterol, Hypertension Respiratory History: Reports: None Gastrointestinal History: Reports: Chronic Constipation, Other (See Below) Other Gastrointestinal History: S/P HYPOKALEMIA. RIGHT INGUINAL HERNIA Genitourinary History: Reports: Other (See Below) Other Genitourinary History: HX OF URINARY CA Musculoskeletal History: Reports: Fracture Other Musculoskeletal History: HX OF FRACTURE IN RIGHT ARM Neurological History: Reports: None Psychiatric History: Reports: Anxiety Endocrine/Metabolic History: Reports: Hypothyroidism Hematologic History: Reports: None Immunologic History: Reports: Immunosuppression Oncologic (Cancer) History: Reports: Bladder Dermatologic History: Reports: Other (See Below) Other Dermatologic History: HX OF HERPES ZOSTER - Infectious Disease History Infectious Disease History: Reports: Influenza, Measles - Past Surgical History Head Surgeries/Procedures: Reports: None HEENT Surgical History: Reports: Adenoidectomy, Tonsillectomy Cardiovascular Surgical History: Reports: None Respiratory Surgical History: Reports: None GI Surgical History: Reports: Colonoscopy Male Surgical History: Reports: None Endocrine Surgical History: Reports: None Neurological Surgical History: Reports: None Musculoskeletal Surgical History: Reports: None Oncologic Surgical History: Reports: None Dermatological Surgical History: Reports: None Social & Family History - Family History Family Medical History: No Pertinent Family History - Tobacco Use Tobacco Use Status *Q: Unknown Ever Used Tobacco - Caffeine Use Caffeine Use: Reports: Tea Other Caffeine Use: 'ONCE IN AWHILE' - Living Situation & Occupation Living situation: Reports: , with Family Occupation: Retired H&P Review of Systems - Review of Systems: Review Of Systems: See Below General: Reports: Malaise, Weakness, Fatigue, Decreased Appetite. Denies: Fever HEENT: Denies: Headaches Pulmonary: Denies: Shortness of Breath Cardiovascular: Denies: Chest Pain, Edema Gastrointestinal: Reports: Anorexia, Nausea. Denies: Vomiting Genitourinary: Denies: Dysuria Psychiatric: Reports: Confusion Exam - Exam Exam: See Below - Vital Signs Vital Signs: Last Vital Signs Temp 98 F 04/29/21 20:56 Pulse 130 H 04/29/21 20:56 Resp 16 04/29/21 20:56 BP 147/107 H 04/29/21 20:56 Pulse Ox 96 04/29/21 20:56 Weight: 134 lb 1.6 oz - Exam General: Alert, Oriented (to lplace, person, not to his meds, medical problems) Neck: Supple Lungs: Clear to Auscultation, Normal Respiratory Effort Cardiovascular: Regular Rate, Regular Rhythm GI/Abdominal Exam: Normal Bowel Sounds, Soft, Non-Tender Extremities: No Pedal Edema Skin: Warm, Dry Neuro Extensive - Mental Status: Alert, Normal Mood/Affect. No: Memory Intact (limited recall) Psychiatric: Alert, Normal Affect, Normal Mood - Patient Data Lab Results Last 24 hrs: Laboratory Results - last 24 hr 04/29/21 04/29/21 04/29/21 Range/Units 20:53 20:53 20:53 WBC 10.0 (5.0-10.0) 10^3/uL RBC 5.18 (4.6-6.2) 10^6/uL Hgb 15.9 (14.0-18.0) g/dL Hct 45.1 (40.0-54.0) % MCV 87.1 (80-100) fL MCH 30.7 (27.0-34.0) pg MCHC 35.3 H (33.0-35.0) g/dL Plt Count 213 (150-450) 10^3/uL Neut % (Auto) 72.5 (42.2-75.2) % Lymph % (Auto) 19.2 L (20.5-50.1) % [place] % (Auto) 7.4 (2-8) % Eos % (Auto) 0.7 L (1.0-3.0) % Baso % (Auto) 0.2 (0.0-1.0) % Add Manual Diff Yes Neutrophils % (Manual) 76 H (42-75) % Band Neutrophils % 4 % Lymphocytes % (Manual) 10 L (20-50) % Monocytes % (Manual) 8 (2-8) % Blast Cells % 2 PT (9.0-12.0) SEC INR (0.9-1.2) Sodium 137 (136-145) mmol/L Potassium 2.8 L (3.5-5.1) mmol/L Chloride 97 L (98-107) mmol/L Carbon Dioxide 26 (21-32) mmol/L Anion Gap 16.8 H (7-13) mEq/L BUN 26 H (7-18) mg/dL Creatinine 1.36 H (0.70-1.30) mg/dL Est Cr Clr Drug Dosing 34.17 mL/min Estimated GFR (MDRD) 50 BUN/Creatinine Ratio 19.1 (No establ ref range) Glucose 176 H (70-99) mg/dL Lactic Acid 2.4 H* (0.4-2.0) mmol/L Calcium 9.2 (8.5-10.1) mg/dL Magnesium 1.7 L (1.8-2.4) mg/dL Total Bilirubin 1.0 (0.2-1.0) mg/dL AST 25 (15-37) U/L ALT 25 (16-63) U/L Alkaline Phosphatase 61 (46-116) U/L Troponin I High Sens 14 (<=76) pg/mL B-Natriuretic Peptide 57 (0-100) pg/ml Total Protein 7.5 (6.4-8.2) g/dL Albumin 3.5 (3.4-5.0) g/dL Globulin 4.0 Albumin/Globulin Ratio 0.9 TSH, Ultra Sensitive 3.84 H (0.36-3.74) uIU/mL Urine Color (YELLOW) Urine Appearance (CLEAR) Urine pH (5.0-9.0) Ur Specific [place] (1.005-1.030) Urine Protein (NEGATIVE) Urine Glucose (UA) (NEGATIVE) Urine Ketones (NEGATIVE) Urine Occult Blood (NEGATIVE) Urine Nitrite (NEGATIVE) Urine Bilirubin (NEGATIVE) Urine Urobilinogen (0.2-1.0) mg/dL Ur Leukocyte Esterase (NEGATIVE) SARS-CoV-2 RNA (RONALD) (NEGATIVE) 04/29/21 04/29/21 04/29/21 Range/Units 20:55 22:25 22:29 WBC (5.0-10.0) 10^3/uL RBC (4.6-6.2) 10^6/uL Hgb (14.0-18.0) g/dL Hct (40.0-54.0) % MCV (80-100) fL MCH (27.0-34.0) pg MCHC (33.0-35.0) g/dL Plt Count (150-450) 10^3/uL Neut % (Auto) (42.2-75.2) % Lymph % (Auto) (20.5-50.1) % [place] % (Auto) (2-8) % Eos % (Auto) (1.0-3.0) % Baso % (Auto) (0.0-1.0) % Add Manual Diff Neutrophils % (Manual) (42-75) % Band Neutrophils % % Lymphocytes % (Manual) (20-50) % Monocytes % (Manual) (2-8) % Blast Cells % PT 11.1 (9.0-12.0) SEC INR 1.1 (0.9-1.2) Sodium (136-145) mmol/L Potassium (3.5-5.1) mmol/L Chloride (98-107) mmol/L Carbon Dioxide (21-32) mmol/L Anion Gap (7-13) mEq/L BUN (7-18) mg/dL Creatinine (0.70-1.30) mg/dL Est Cr Clr Drug Dosing mL/min Estimated GFR (MDRD) BUN/Creatinine Ratio (No establ ref range) Glucose (70-99) mg/dL Lactic Acid (0.4-2.0) mmol/L Calcium (8.5-10.1) mg/dL Magnesium (1.8-2.4) mg/dL Total Bilirubin (0.2-1.0) mg/dL AST (15-37) U/L ALT (16-63) U/L Alkaline Phosphatase (46-116) U/L Troponin I High Sens (<=76) pg/mL B-Natriuretic Peptide (0-100) pg/ml Total Protein (6.4-8.2) g/dL Albumin (3.4-5.0) g/dL Globulin Albumin/Globulin Ratio TSH, Ultra Sensitive (0.36-3.74) uIU/mL Urine Color Yellow (YELLOW) Urine Appearance Clear (CLEAR) Urine pH 7.0 (5.0-9.0) Ur Specific [place] 1.025 (1.005-1.030) Urine Protein Negative (NEGATIVE) Urine Glucose (UA) Negative (NEGATIVE) Urine Ketones Negative (NEGATIVE) Urine Occult Blood Negative (NEGATIVE) Urine Nitrite Negative (NEGATIVE) Urine Bilirubin Negative (NEGATIVE) Urine Urobilinogen 0.2 (0.2-1.0) mg/dL Ur Leukocyte Esterase Negative (NEGATIVE) SARS-CoV-2 RNA (RONALD) Negative (NEGATIVE) Result Diagrams: 04/29/21 20:53 04/29/21 20:53 Deep Results Last 24 hrs: Microbiology 04/29/21 20:55 Respiratory Syncytial Virus Ag Scrn - Final Nasopharyngeal Swab NEGATIVE RSV ANTIGEN REFERENCE RANGE: NEGATIVE 04/29/21 20:55 Influenza Type A Antigen Screen - Final Nasal, Unspecified NEGATIVE INFLUENZA A VIRUS AG REFERENCE RANGE: NEGATIVE Influenza Type B Antigen Screen - Final NEGATIVE INFLUENZA B VIRUS AG REFERENCE RANGE: NEGATIVE 04/29/21 20:53 Anaerobic Blood Culture - Final Blood - Venous - Iv Start - Problem List (1) Dementia SNOMED Code(s): 15342430 ICD Code: F03.90 - UNSPECIFIED DEMENTIA WITHOUT BEHAVIORAL DISTURBANCE Status: Acute Current Visit: Yes (2) Acute metabolic encephalopathy SNOMED Code(s): 50737531, 314489944 ICD Code: G93.41 - METABOLIC ENCEPHALOPATHY Status: Acute Current Visit: Yes (3) HTN (hypertension) SNOMED Code(s): 69669781 ICD Code: I10 - ESSENTIAL (PRIMARY) HYPERTENSION Status: Acute Current Visit: Yes (4) Hypokalemia SNOMED Code(s): 66945260 ICD Code: E87.6 - HYPOKALEMIA Status: Acute Current Visit: No (5) Hypothyroid SNOMED Code(s): 68900869 ICD Code: E03.9 - HYPOTHYROIDISM, UNSPECIFIED Status: Acute Current Visi t: No Qualifiers: Hypothyroidism type: unspecified Qualified Code(s): E03.9 - Hypothyroidism, unspecified (6) Weakness SNOMED Code(s): 95361605 ICD Code: R53.1 - WEAKNESS Status: Acute Current Visit: No Problem List Initiated/Reviewed/Updated: Yes Orders Last 24hrs: Active Orders 24 hr Category Date Time Status Patient Status [ADT] Routine ADT 04/29/21 23:55 Ordered Oxygen Therapy [RC] PRN Care 04/29/21 23:55 Ordered Peripheral IV Care [RC] . DIRECTED Care 04/29/21 23:57 Ordered Up With Assistance [RC] ASDIRECTED Care 04/29/21 23:55 Ordered VTE/DVT Education [RC] PER UNIT ROUTINE Care 04/29/21 23:55 Ordered Vital Signs [RC] Q4H Care 04/29/21 23:55 Ordered OT Evaluation and Treatment [CONS] Routine Cons 04/29/21 23:37 Ordered PT Evaluation and Treatment [CONS] Routine Cons 04/29/21 23:37 Ordered Regular Diet [DIET] Diet 04/29/21 Breakfast Ordered BASIC METABOLIC PANEL,BMP [CHEM] AM Lab 04/30/21 05:15 Ordered CBC WITH AUTO DIFF [HEME] AM Lab 04/30/21 05:15 Ordered CULTURE BLOOD [BC] Stat Lab 04/29/21 20:53 Results CULTURE BLOOD [BC] Stat Lab 04/29/21 22:29 Received HEPATIC FUNCTION PANEL,HFP [CHEM] AM Lab 04/30/21 05:11 Ordered MAGNESIUM [CHEM] AM Lab 04/30/21 05:11 Ordered PHOSPHORUS [CHEM] AM Lab 04/30/21 05:11 Ordered Acetaminophen [TylenoL] Med 04/29/21 23:55 Ordered 650 mg PO Q4H PRN Aspirin Med 04/30/21 08:00 Ordered 81 mg PO WITHBREAKFAST Chlorthalidone Med 04/30/21 09:00 Ordered 25 mg PO DAILY Docusate Sodium [Colace] Med 04/29/21 23:55 Ordered 100 mg PO BID PRN Heparin Sodium Med 04/30/21 06:00 Ordered 5,000 units SUBCUT Q8HR Levothyroxine Med 04/30/21 09:00 Ordered 12.5 mcg PO DAILY Levothyroxine [Synthroid] Med 04/30/21 06:00 Ordered 50 mcg PO ACBREAKFAST Ondansetron [Zofran] Med 04/29/21 23:55 Ordered 4 mg IVPUSH Q4H PRN Potassium Chloride [KCL in Water 20 MEQ/100 ML] 20 meq Med 04/29/21 22:19 Active Premix Bag 1 bag IV ONETIME Potassium Chloride [KCl in Water 10 MEQ/100 ML] 10 meq Med 04/29/21 23:45 Ordered Premix Bag 1 bag IV Q2H Potassium Chloride [Klor-Con M20] Med 04/30/21 09:00 Ordered 40 meq PO BID Sodium Chloride 0.9% [Normal Saline] 1,000 ml Med 04/29/21 21:20 Active IV .BOLUS Sodium Chloride 0.9% [Saline Flush] Med 04/29/21 23:55 Ordered 10 ml FLUSH ASDIRECTED PRN Temazepam [Restoril] Med 04/29/21 23:55 Ordered 15 mg PO BEDTIME PRN amLODIPine [Norvasc] Med 04/30/21 09:00 Ordered 7.5 mg PO DAILY Blood Culture x2 Reflex Set [OM.PC] Stat Oth 04/29/21 20:49 Ordered Peripheral IV Insertion Adult [OM.PC] Routine Oth 04/29/21 23:55 Ordered Saline Lock Insert [OM.PC] Routine Oth 04/29/21 23:55 Ordered Resuscitation Status Routine Resus Stat 04/29/21 23:55 Ordered Medication Orders Acetaminophen (Acetaminophen 325 Mg Tab) 650 mg PO Q4H PRN PRN Reason: Pain (Mild 1-3)/fever Amlodipine Besylate (Amlodipine 5 Mg Tab) 7.5 mg PO DAILY [facility] Aspirin (Aspirin 81 Mg Tab.Chew) 81 mg PO WITHBREAKFAST [facility] Chlorthalidone (Chlorthalidone 25 Mg Tab) 25 mg PO DAILY [facility] Docusate Sodium (Docusate Sodium 100 Mg Cap) 100 mg PO BID PRN PRN Reason: Constipation Heparin Sodium (Porcine) (Heparin Sodium 5,000 Units/Ml Vial) 5,000 units SUBCUT Q8HR [facility] Sodium Chloride (Normal Saline) 1,000 mls @ 150 mls/hr IV .BOLUS ONE Stop: 04/30/21 03:59 Last Admin: 04/29/21 22:26 Dose: 150 mls/hr Documented by: DEMECHR Potassium Chloride 20 meq/ (Premix) 100 mls @ 50 mls/hr IV ONETIME ONE Stop: 04/30/21 00:18 Last Admin: 04/29/21 22:27 Dose: 50 mls/hr Documented by: DEMECHR Potassium Chloride 10 meq/ (Premix) 100 mls @ 50 mls/hr IV Q2H KAYA Stop: 04/30/21 11:44 Levothyroxine Sodium (Levothyroxine 25 Mcg Tab) 12.5 mcg PO DAILY [facility] Levothyroxine Sodium (Levothyroxine 50 Mcg Tab) 50 mcg PO ACBREAKFAST [facility] Ondansetron HCl (Ondansetron 4 Mg/2 Ml Sdv) 4 mg IVPUSH Q4H PRN PRN Reason: Nausea/Vomiting Potassium Chloride (Potassium Chloride 10 Meq Tab.Er) 40 meq PO BID [facility] Sodium Chloride (Sodium Chloride 0.9% 10 Ml Syringe) 10 ml FLUSH ASDIRECTED PRN PRN Reason: Keep Vein Open Temazepam (Temazepam 15 Mg Cap) 15 mg PO BEDTIME PRN PRN Reason: Sleep Assessment/Plan Comment:: presented with weakness, increased confusion has h/o htn, bladder ca, dementia, impaired hearing, noted to have severe hypokalemia, tachycardia met with pt and significant other - both are poor historians, limited insight into prior medical tx., does not know meds, c/o nausea a few days ago then no food intake 3 days, no nausea now, no cp, no sob poor appetite, drinking protein shakes only slipped out of bed few days ago lives with SO, has daughter in [place] A/p: confusion with underlying dementia - 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
[2021-04-30] MEDS: Potassium Chloride 10 MEQ in Premix Bag 1 BAG IV SCH ×6 (00:54→10:43)
[2021-04-30] MEDS: Heparin Sodium 5,000 Units/ML Vial SUBCUT SCH ×4 (06:00→22:39)
[2021-04-30] MEDS ORDERED: Levothyroxine 25 MCG Tab PO SCH (06:00)
[2021-04-30] MEDS ORDERED: Levothyroxine 50 MCG Tab PO SCH (06:00)
[2021-04-30 07:11] LABS: ANION GAP 11.3 mEq/L (7-13)
[2021-04-30] MEDS: Aspirin 81 MG Tab.Chew PO SCH (09:00)
[2021-04-30] MEDS ORDERED: Chlorthalidone 25 MG Tab PO SCH (09:00)
[2021-04-30] MEDS ORDERED: amLODIPine 5 MG Tab PO SCH (09:00)
[2021-04-30] MEDS ORDERED: Potassium Chloride 10 MEQ Tab.ER PO SCH (09:00)
[2021-04-30] MEDS ORDERED: AMLODIPINE 5 MG PO SCH (10:02)
[2021-04-30] MEDS ORDERED: CHLORTHALIDONE 25 MG PO SCH (10:05)
[2021-04-30] MEDS ORDERED: LEVOTHYROXINE 25 MCG PO SCH (10:07)
[2021-04-30] MEDS ORDERED: LEVOTHYROXINE 50 MCG PO SCH (10:08)
--- NOTE | 2021-04-30 10:13 | PCM.PN ---
- General Info Date of Service: 04/30/21 Admission Dx/Problem (Free Text): Admission Diagnosis/Problem Admission Diagnosis/Problem Weakness Subjective Update: feeling better and stronger eating breakfast after breakfast had nausea and small amount of vomiting no associated Abd pain no fever, no chills no sob, no cp Functional Status: Reports: Pain Controlled. Denies: Tolerating Diet - Review of Systems General: Reports: Weakness. Denies: Fever Pulmonary: Denies: Shortness of Breath Cardiovascular: Denies: Chest Pain, Edema Genitourinary: Denies: Dysuria Neurological: Denies: Confusion - Patient Data Vitals - Most Recent: Last Vital Signs Temp 100.2 F 04/30/21 07:25 Pulse 73 04/30/21 07:25 Resp 20 04/30/21 07:25 BP 154/82 H 04/30/21 08:57 Pulse Ox 98 04/30/21 07:25 Weight - Most Recent: 136 lb I&O - Last 24 Hours: Intake & Output 04/29/21 04/30/21 04/30/21 22:59 06:59 14:59 Intake Total 1000 Output Total 300 Balance 700 Lab Results Last 24 Hours: Laboratory Results - last 24 hr 04/29/21 04/29/21 04/29/21 Range/Units 20:53 20:53 20:53 WBC 10.0 (5.0-10.0) 10^3/uL RBC 5.18 (4.6-6.2) 10^6/uL Hgb 15.9 (14.0-18.0) g/dL Hct 45.1 (40.0-54.0) % MCV 87.1 (80-100) fL MCH 30.7 (27.0-34.0) pg MCHC 35.3 H (33.0-35.0) g/dL Plt Count 213 (150-450) 10^3/uL Neut % (Auto) 72.5 (42.2-75.2) % Lymph % (Auto) 19.2 L (20.5-50.1) % Lamar % (Auto) 7.4 (2-8) % Eos % (Auto) 0.7 L (1.0-3.0) % Baso % (Auto) 0.2 (0.0-1.0) % Add Manual Diff Yes Neutrophils % (Manual) 76 H (42-75) % Band Neutrophils % 4 % Lymphocytes % (Manual) 10 L (20-50) % Monocytes % (Manual) 8 (2-8) % Blast Cells % 2 PT (9.0-12.0) SEC INR (0.9-1.2) Sodium 137 (136-145) mmol/L Potassium 2.8 L (3.5-5.1) mmol/L Chloride 97 L (98-107) mmol/L Carbon Dioxide 26 (21-32) mmol/L Anion Gap 16.8 H (7-13) mEq/L BUN 26 H (7-18) mg/dL Creatinine 1.36 H (0.70-1.30) mg/dL Est Cr Clr Drug Dosing 34.17 mL/min Estimated GFR (MDRD) 50 BUN/Creatinine Ratio 19.1 (No establ ref range) Glucose 176 H (70-99) mg/dL Lactic Acid 2.4 H* (0.4-2.0) mmol/L Calcium 9.2 (8.5-10.1) mg/dL Phosphorus (2.6-4.7) mg/dL Magnesium 1.7 L (1.8-2.4) mg/dL Total Bilirubin 1.0 (0.2-1.0) mg/dL Direct Bilirubin (0.0-0.2) mg/dL Indirect Bilirubin AST 25 (15-37) U/L ALT 25 (16-63) U/L Alkaline Phosphatase 61 (46-116) U/L Troponin I High Sens 14 (<=76) pg/mL B-Natriuretic Peptide 57 (0-100) pg/ml Total Protein 7.5 (6.4-8.2) g/dL Albumin 3.5 (3.4-5.0) g/dL Globulin 4.0 Albumin/Globulin Ratio 0.9 TSH, Ultra Sensitive 3.84 H (0.36-3.74) uIU/mL Urine Color (YELLOW) Urine Appearance (CLEAR) Urine pH (5.0-9.0) Ur Specific [place] (1.005-1.030) Urine Protein (NEGATIVE) Urine Glucose (UA) (NEGATIVE) Urine Ketones (NEGATIVE) Urine Occult Blood (NEGATIVE) Urine Nitrite (NEGATIVE) Urine Bilirubin (NEGATIVE) Urine Urobilinogen (0.2-1.0) mg/dL Ur Leukocyte Esterase (NEGATIVE) SARS-CoV-2 RNA (RONALD) (NEGATIVE) 04/29/21 04/29/21 04/29/21 Range/Units 20:55 22:25 22:29 WBC (5.0-10.0) 10^3/uL RBC (4.6-6.2) 10^6/uL Hgb (14.0-18.0) g/dL Hct (40.0-54.0) % MCV (80-100) fL MCH (27.0-34.0) pg MCHC (33.0-35.0) g/dL Plt Count (150-450) 10^3/uL Neut % (Auto) (42.2-75.2) % Lymph % (Auto) (20.5-50.1) % Lamar % (Auto) (2-8) % Eos % (Auto) (1.0-3.0) % Baso % (Auto) (0.0-1.0) % Add Manual Diff Neutrophils % (Manual) (42-75) % Band Neutrophils % % Lymphocytes % (Manual) (20-50) % Monocytes % (Manual) (2-8) % Blast Cells % PT 11.1 (9.0-12.0) SEC INR 1.1 (0.9-1.2) Sodium (136-145) mmol/L Potassium (3.5-5.1) mmol/L Chloride (98-107) mmol/L Carbon Dioxide (21-32) mmol/L Anion Gap (7-13) mEq/L BUN (7-18) mg/dL Creatinine (0.70-1.30) mg/dL Est Cr Clr Drug Dosing mL/min Estimated GFR (MDRD) BUN/Creatinine Ratio (No establ ref range) Glucose (70-99) mg/dL Lactic Acid (0.4-2.0) mmol/L Calcium (8.5-10.1) mg/dL Phosphorus (2.6-4.7) mg/dL Magnesium (1.8-2.4) mg/dL Total Bilirubin (0.2-1.0) mg/dL Direct Bilirubin (0.0-0.2) mg/dL Indirect Bilirubin AST (15-37) U/L ALT (16-63) U/L Alkaline Phosphatase (46-116) U/L Troponin I High Sens (<=76) pg/mL B-Natriuretic Peptide (0-100) pg/ml Total Protein (6.4-8.2) g/dL Albumin (3.4-5.0) g/dL Globulin Albumin/Globulin Ratio TSH, Ultra Sensitive (0.36-3.74) uIU/mL Urine Color Yellow (YELLOW) Urine Appearance Clear (CLEAR) Urine pH 7.0 (5.0-9.0) Ur Specific [place] 1.025 (1.005-1.030) Urine Protein Negative (NEGATIVE) Urine Glucose (UA) Negative (NEGATIVE) Urine Ketones Negative (NEGATIVE) Urine Occult Blood Negative (NEGATIVE) Urine Nitrite Negative (NEGATIVE) Urine Bilirubin Negative (NEGATIVE) Urine Urobilinogen 0.2 (0.2-1.0) mg/dL Ur Leukocyte Esterase Negative (NEGATIVE) SARS-CoV-2 RNA (RONALD) Negative (NEGATIVE) 04/30/21 04/30/21 04/30/21 Range/Units 06:24 06:24 06:24 WBC 8.9 (5.0-10.0) 10^3/uL RBC 4.59 L (4.6-6.2) 10^6/uL Hgb 14.1 D (14.0-18.0) g/dL Hct 40.7 (40.0-54.0) % MCV 88.7 (80-100) fL MCH 30.7 (27.0-34.0) pg MCHC 34.6 (33.0-35.0) g/dL Plt Count 199 (150-450) 10^3/uL Neut % (Auto) 61.6 (42.2-75.2) % Lymph % (Auto) 27.2 (20.5-50.1) % Lamar % (Auto) 10.8 H (2-8) % Eos % (Auto) 0.3 L (1.0-3.0) % Baso % (Auto) 0.1 (0.0-1.0) % Add Manual Diff Neutrophils % (Manual) (42-75) % Band Neutrophils % % Lymphocytes % (Manual) (20-50) % Monocytes % (Manual) (2-8) % Blast Cells % PT (9.0-12.0) SEC INR (0.9-1.2) Sodium 137 (136-145) mmol/L Potassium 3.3 L (3.5-5.1) mmol/L Chloride 101 (98-107) mmol/L Carbon Dioxide 28 (21-32) mmol/L Anion Gap 11.3 (7-13) mEq/L BUN 26 H (7-18) mg/dL Creatinine 1.23 (0.70-1.30) mg/dL Est Cr Clr Drug Dosing 38.31 mL/min Estimated GFR (MDRD) 56 BUN/Creatinine Ratio (No establ ref range) Glucose 96 (70-99) mg/dL Lactic Acid 1.2 (0.4-2.0) mmol/L Calcium 8.4 L (8.5-10.1) mg/dL Phosphorus 2.9 (2.6-4.7) mg/dL Magnesium 1.6 L (1.8-2.4) mg/dL Total Bilirubin 0.9 (0.2-1.0) mg/dL Direct Bilirubin 0.2 (0.0-0.2) mg/dL Indirect Bilirubin 0.7 AST 22 (15-37) U/L ALT 23 (16-63) U/L Alkaline Phosphatase 50 (46-116) U/L Troponin I High Sens (<=76) pg/mL B-Natriuretic Peptide (0-100) pg/ml Total Protein 6.4 (6.4-8.2) g/dL Albumin 2.9 L (3.4-5.0) g/dL Globulin 3.5 Albumin/Globulin Ratio 0.83 TSH, Ultra Sensitive (0.36-3.74) uIU/mL Urine Color (YELLOW) Urine Appearance (CLEAR) Urine pH (5.0-9.0) Ur Specific [place] (1.005-1.030) Urine Protein (NEGATIVE) Urine Glucose (UA) (NEGATIVE) Urine Ketones (NEGATIVE) Urine Occult Blood (NEGATIVE) Urine Nitrite (NEGATIVE) Urine Bilirubin (NEGATIVE) Urine Urobilinogen (0.2-1.0) mg/dL Ur Leukocyte Esterase (NEGATIVE) SARS-CoV-2 RNA (RONALD) (NEGATIVE) Deep Results Last 24 Hours: Microbiology 04/29/21 20:55 Respiratory Syncytial Virus Ag Scrn - Final Nasopharyngeal Swab NEGATIVE RSV ANTIGEN REFERENCE RANGE: NEGATIVE 04/29/21 20:55 Influenza Type A Antigen Screen - Final Nasal, Unspecified NEGATIVE INFLUENZA A VIRUS AG REFERENCE RANGE: NEGATIVE Influenza Type B Antigen Screen - Final NEGATIVE INFLUENZA B VIRUS AG REFERENCE RANGE: NEGATIVE 04/29/21 20:53 Anaerobic Blood Culture - Final Blood - Venous - Iv Start Med Orders - Current: Current Medications Acetaminophen (Acetaminophen 325 Mg Tab) 650 mg PO Q4H PRN PRN Reason: Pain (Mild 1-3)/fever Amlodipine Besylate (Amlodipine 5 Mg Tab *Own Med*) 7.5 mg PO DAILY [facility] Aspirin (Aspirin 81 Mg Tab.Chew) 81 mg PO WITHBREAKFAST [facility] Last Admin: 04/30/21 09:00 Dose: 81 mg Documented by: Chlorthalidone (Chlorthalidone 25 Mg Tab) 25 mg PO DAILY [facility] Last Admin: 04/30/21 09:00 Dose: 25 mg Documented by: Docusate Sodium (Docusate Sodium 100 Mg Cap) 100 mg PO BID PRN PRN Reason: Constipation Heparin Sodium (Porcine) (Heparin Sodium 5,000 Units/Ml Vial) 5,000 units SUBCUT Q8HR [facility] Last Admin: 04/30/21 06:00 Dose: 5,000 units Documented by: Potassium Chloride 10 meq/ (Premix) 100 mls @ 50 mls/hr IV Q2H [facility] Stop: 04/30/21 11:44 Last Admin: 04/30/21 08:54 Dose: 50 mls/hr Documented by: Levothyroxine Sodium (Levothyroxine 25 Mcg Tab) 12.5 mcg PO ACBREAKFAST [facility] Last Admin: 04/30/21 06:00 Dose: 12.5 mcg Documented by: Levothyroxine Sodium (Levothyroxine 50 Mcg Tab) 50 mcg PO ACBREAKFAST [facility] Last Admin: 04/30/21 06:00 Dose: 50 mcg Documented by: Magnesium Oxide (Magnesium Oxide 250 Mg Tab) 500 mg PO BIDMEALS [facility] Stop: 04/30/21 18:01 Ondansetron HCl (Ondansetron 4 Mg/2 Ml Sdv) 4 mg IVPUSH Q4H PRN PRN Reason: Nausea/Vomiting Last Admin: 04/30/21 09:26 Dose: 4 mg Documented by: Pantoprazole Sodium (Pantoprazole 40 Mg Tab.Cr) 40 mg PO ACBREAKFAST [facility] Potassium Chloride 20 Meq Tab.Er *Own Med* 0 each PO BID [facility] Sodium Chloride (Sodium Chloride 0.9% 10 Ml Syringe) 10 ml FLUSH ASDIRECTED PRN PRN Reason: Keep Vein Open Temazepam (Temazepam 15 Mg Cap) 15 mg PO BEDTIME PRN PRN Reason: Sleep Discontinued Medications Amlodipine Besylate (Amlodipine 5 Mg Tab) 7.5 mg PO DAILY [facility] Last Admin: 04/30/21 08:57 Dose: 7.5 mg Documented by: Sodium Chloride (Normal Saline) 1,000 mls @ 150 mls/hr IV .BOLUS ONE Stop: 04/30/21 03:59 Last Admin: 04/29/21 22:26 Dose: 150 mls/hr Documented by: Potassium Chloride 20 meq/ (Premix) 100 mls @ 50 mls/hr IV ONETIME ONE Stop: 04/30/21 00:18 Last Admin: 04/29/21 22:27 Dose: 50 mls/hr Documented by: Potassium Chloride (Potassium Chloride 10 Meq Tab.Er) 40 meq PO BID [facility] Last Admin: 04/30/21 09:00 Dose: 40 meq Documented by: - Exam General: Alert, Oriented Lungs: Clear to Auscultation, Normal Respiratory Effort, Rales Cardiovascular: Regular Rate, Regular Rhythm GI/Abdominal Exam: Normal Bowel Sounds, Soft, Non-Tender Extremities: No Pedal Edema Skin: Warm, Dry Neurological: No New Focal Deficit Psy/Mental Status: Alert, Normal Affect, Normal Mood - Patient Data Lab Results Last 24 hrs: Laboratory Results - last 24 hr 04/29/21 04/29/21 04/29/21 Range/Units 20:53 20:53 20:53 WBC 10.0 (5.0-10.0) 10^3/uL RBC 5.18 (4.6-6.2) 10^6/uL Hgb 15.9 (14.0-18.0) g/dL Hct 45.1 (40.0-54.0) % MCV 87.1 (80-100) fL MCH 30.7 (27.0-34.0) pg MCHC 35.3 H (33.0-35.0) g/dL Plt Count 213 (150-450) 10^3/uL Neut % (Auto) 72.5 (42.2-75.2) % Lymph % (Auto) 19.2 L (20.5-50.1) % Lamar % (Auto) 7.4 (2-8) % Eos % (Auto) 0.7 L (1.0-3.0) % Baso % (Auto) 0.2 (0.0-1.0) % Add Manual Diff Yes Neutrophils % (Manual) 76 H (42-75) % Band Neutrophils % 4 % Lymphocytes % (Manual) 10 L (20-50) % Monocytes % (Manual) 8 (2-8) % Blast Cells % 2 PT (9.0-12.0) SEC INR (0.9-1.2) Sodium 137 (136-145) mmol/L Potassium 2.8 L (3.5-5.1) mmol/L Chloride 97 L (98-107) mmol/L Carbon Dioxide 26 (21-32) mmol/L Anion Gap 16.8 H (7-13) mEq/L BUN 26 H (7-18) mg/dL Creatinine 1.36 H (0.70-1.30) mg/dL Est Cr Clr Drug Dosing 34.17 mL/min Estimated GFR (MDRD) 50 BUN/Creatinine Ratio 19.1 (No establ ref range) Glucose 176 H (70-99) mg/dL Lactic Acid 2.4 H* (0.4-2.0) mmol/L Calcium 9.2 (8.5-10.1) mg/dL Phosphorus (2.6-4.7) mg/dL Magnesium 1.7 L (1.8-2.4) mg/dL Total Bilirubin 1.0 (0.2-1.0) mg/dL Direct Bilirubin (0.0-0.2) mg/dL Indirect Bilirubin AST 25 (15-37) U/L ALT 25 (16-63) U/L Alkaline Phosphatase 61 (46-116) U/L Troponin I High Sens 14 (<=76) pg/mL B-Natriuretic Peptide 57 (0-100) pg/ml Total Protein 7.5 (6.4-8.2) g/dL Albumin 3.5 (3.4-5.0) g/dL Globulin 4.0 Albumin/Globulin Ratio 0.9 TSH, Ultra Sensitive 3.84 H (0.36-3.74) uIU/mL Urine Color (YELLOW) Urine Appearance (CLEAR) Urine pH (5.0-9.0) Ur Specific [place] (1.005-1.030) Urine Protein (NEGATIVE) Urine Glucose (UA) (NEGATIVE) Urine Ketones (NEGATIVE) Urine Occult Blood (NEGATIVE) Urine Nitrite (NEGATIVE) Urine Bilirubin (NEGATIVE) Urine Urobilinogen (0.2-1.0) mg/dL Ur Leukocyte Esterase (NEGATIVE) SARS-CoV-2 RNA (RONALD) (NEGATIVE) 04/29/21 04/29/21 04/29/21 Range/Units 20:55 22:25 22:29 WBC (5.0-10.0) 10^3/uL RBC (4.6-6.2) 10^6/uL Hgb (14.0-18.0) g/dL Hct (40.0-54.0) % MCV (80-100) fL MCH (27.0-34.0) pg MCHC (33.0-35.0) g/dL Plt Count (150-450) 10^3/uL Neut % (Auto) (42.2-75.2) % Lymph % (Auto) (20.5-50.1) % Lamar % (Auto) (2-8) % Eos % (Auto) (1.0-3.0) % Baso % (Auto) (0.0-1.0) % Add Manual Diff Neutrophils % (Manual) (42-75) % Band Neutrophils % % Lymphocytes % (Manual) (20-50) % Monocytes % (Manual) (2-8) % Blast Cells % PT 11.1 (9.0-12.0) SEC INR 1.1 (0.9-1.2) Sodium (136-145) mmol/L Potassium (3.5-5.1) mmol/L Chloride (98-107) mmol/L Carbon Dioxide (21-32) mmol/L Anion Gap (7-13) mEq/L BUN (7-18) mg/dL Creatinine (0.70-1.30) mg/dL Est Cr Clr Drug Dosing mL/min Estimated GFR (MDRD) BUN/Creatinine Ratio (No establ ref range) Glucose (70-99) mg/dL Lactic Acid (0.4-2.0) mmol/L Calcium (8.5-10.1) mg/dL Phosphorus (2.6-4.7) mg/dL Magnesium (1.8-2.4) mg/dL Total Bilirubin (0.2-1.0) mg/dL Direct Bilirubin (0.0-0.2) mg/dL Indirect Bilirubin AST (15-37) U/L ALT (16-63) U/L Alkaline Phosphatase (46-116) U/L Troponin I High Sens (<=76) pg/mL B-Natriuretic Peptide (0-100) pg/ml Total Protein (6.4-8.2) g/dL Albumin (3.4-5.0) g/dL Globulin Albumin/Globulin Ratio TSH, Ultra Sensitive (0.36-3.74) uIU/mL Urine Color Yellow (YELLOW) Urine Appearance Clear (CLEAR) Urine pH 7.0 (5.0-9.0) Ur Specific [place] 1.025 (1.005-1.030) Urine Protein Negative (NEGATIVE) Urine Glucose (UA) Negative (NEGATIVE) Urine Ketones Negative (NEGATIVE) Urine Occult Blood Negative (NEGATIVE) Urine Nitrite Negative (NEGATIVE) Urine Bilirubin Negative (NEGATIVE) Urine Urobilinogen 0.2 (0.2-1.0) mg/dL Ur Leukocyte Esterase Negative (NEGATIVE) SARS-CoV-2 RNA (RONALD) Negative (NEGATIVE) 04/30/21 04/30/21 04/30/21 Range/Units 06:24 06:24 06:24 WBC 8.9 (5.0-10.0) 10^3/uL RBC 4.59 L (4.6-6.2) 10^6/uL Hgb 14.1 D (14.0-18.0) g/dL Hct 40.7 (40.0-54.0) % MCV 88.7 (80-100) fL MCH 30.7 (27.0-34.0) pg MCHC 34.6 (33.0-35.0) g/dL Plt Count 199 (150-450) 10^3/uL Neut % (Auto) 61.6 (42.2-75.2) % Lymph % (Auto) 27.2 (20.5-50.1) % Lamar % (Auto) 10.8 H (2-8) % Eos % (Auto) 0.3 L (1.0-3.0) % Baso % (Auto) 0.1 (0.0-1.0) % Add Manual Diff Neutrophils % (Manual) (42-75) % Band Neutrophils % % Lymphocytes % (Manual) (20-50) % Monocytes % (Manual) (2-8) % Blast Cells % PT (9.0-12.0) SEC INR (0.9-1.2) Sodium 137 (136-145) mmol/L Potassium 3.3 L (3.5-5.1) mmol/L Chloride 101 (98-107) mmol/L Carbon Dioxide 28 (21-32) mmol/L Anion Gap 11.3 (7-13) mEq/L BUN 26 H (7-18) mg/dL Creatinine 1.23 (0.70-1.30) mg/dL Est Cr Clr Drug Dosing 38.31 mL/min Estimated GFR (MDRD) 56 BUN/Creatinine Ratio (No establ ref range) Glucose 96 (70-99) mg/dL Lactic Acid 1.2 (0.4-2.0) mmol/L Calcium 8.4 L (8.5-10.1) mg/dL Phosphorus 2.9 (2.6-4.7) mg/dL Magnesium 1.6 L (1.8-2.4) mg/dL Total Bilirubin 0.9 (0.2-1.0) mg/dL Direct Bilirubin 0.2 (0.0-0.2) mg/dL Indirect Bilirubin 0.7 AST 22 (15-37) U/L ALT 23 (16-63) U/L Alkaline Phosphatase 50 (46-116) U/L Troponin I High Sens (<=76) pg/mL B-Natriuretic Peptide (0-100) pg/ml Total Protein 6.4 (6.4-8.2) g/dL Albumin 2.9 L (3.4-5.0) g/dL Globulin 3.5 Albumin/Globulin Ratio 0.83 TSH, Ultra Sensitive (0.36-3.74) uIU/mL Urine Color (YELLOW) Urine Appearance (CLEAR) Urine pH (5.0-9.0) Ur Specific [place] (1.005-1.030) Urine Protein (NEGATIVE) Urine Glucose (UA) (NEGATIVE) Urine Ketones (NEGATIVE) Urine Occult Blood (NEGATIVE) Urine Nitrite (NEGATIVE) Urine Bilirubin (NEGATIVE) Urine Urobilinogen (0.2-1.0) mg/dL Ur Leukocyte Esterase (NEGATIVE) SARS-CoV-2 RNA (RONALD) (NEGATIVE) Result Diagrams: 04/30/21 06:24 04/30/21 06:24 Deep Results Last 24 hrs: Microbiology 04/29/21 20:55 Respiratory Syncytial Virus Ag Scrn - Final Nasopharyngeal Swab NEGATIVE RSV ANTIGEN REFERENCE RANGE: NEGATIVE 04/29/21 20:55 Influenza Type A Antigen Screen - Final Nasal, Unspecified NEGATIVE INFLUENZA A VIRUS AG REFERENCE RANGE: NEGATIVE Influenza Type B Antigen Screen - Final NEGATIVE INFLUENZA B VIRUS AG REFERENCE RANGE: NEGATIVE 04/29/21 20:53 Anaerobic Blood Culture - Final Blood - Venous - Iv Start Sepsis Event Note - Evaluation Sepsis Screening Result: Possible Sepsis Risk - Focused Exam Vital Signs: Vital Signs Temp Pulse Resp BP BP BP Pulse Ox 04/30/21 08:57 154/82 H 04/30/21 07:25 100.2 F 73 20 154/82 H 98 04/30/21 04:00 99.1 F 88 20 136/80 95 04/29/21 23:55 99.2 F 93 20 152/82 H 149/80 H 95 - Problem List & Annotations (1) Dementia SNOMED Code(s): 22296912 Code(s): F03.90 - UNSPECIFIED DEMENTIA WITHOUT BEHAVIORAL DISTURBANCE Status: Acute Current Visit: Yes (2) Acute metabolic encephalopathy SNOMED Code(s): 97409152, 019040263 Code(s): G93.41 - METABOLIC ENCEPHALOPATHY Status: Acute Current Visit: Yes (3) HTN (hypertension) SNOMED Code(s): 26180786 Code(s): I10 - ESSENTIAL (PRIMARY) HYPERTENSION Status: Acute Current Visit: Yes (4) Hypokalemia SNOMED Code(s): 77298576 Code(s): E87.6 - HYPOKALEMIA Status: Acute Current Visit: No (5) Hypothyroid SNOMED Code(s): 63367587 Code(s): E03.9 - HYPOTHYROIDISM, UNSPECIFIED Status: Acute Current Visit: No Qualifiers: Hypothyroidism type: unspecified Qualified Code(s): E03.9 - Hypothyroidism, unspecified (6) Weakness SNOMED Code(s): 91527128 Code(s): R53.1 - WEAKNESS Status: Acute Current Visit: No - Problem List Review Problem List Initiated/Reviewed/Updated: Yes - My Orders Last 24 Hours: My Active Orders 04/29/21 23:37 OT Evaluation and Treatment [CONS] Routine PT Evaluation and Treatment [CONS] Routine 04/29/21 23:45 Potassium Chloride [KCl in Water 10 MEQ/100 ML] 10 meq Premix Bag 1 bag IV Q2H 04/29/21 23:55 Patient Status [ADT] Routine Oxygen Therapy [RC] PRN Up With Assistance [RC] ASDIRECTED VTE/DVT Education [RC] Vital Signs [RC] 04,08,12,16,20,00 Acetaminophen [TylenoL] 650 mg PO Q4H PRN Docusate Sodium [Colace] 100 mg PO BID PRN Ondansetron [Zofran] 4 mg IVPUSH Q4H PRN Sodium Chloride 0.9% [Saline Flush] 10 ml FLUSH ASDIRECTED PRN Temazepam [Restoril] 15 mg PO BEDTIME PRN Peripheral IV Insertion Adult [OM.PC] Routine Saline Lock Insert [OM.PC] Routine Resuscitation Status Routine 04/29/21 23:57 Peripheral IV Care [RC] . DIRECTED 04/30/21 06:00 Heparin Sodium 5,000 units SUBCUT Q8HR Levothyroxine 12.5 mcg PO ACBREAKFAST Levothyroxine [Synthroid] 50 mcg PO ACBREAKFAST 04/30/21 08:00 Aspirin 81 mg PO WITHBREAKFAST 04/30/21 09:00 Chlorthalidone 25 mg PO DAILY 04/30/21 09:29 Supplement (Dietary) [Dietary Supplements] [RC] BIDAC 04/30/21 09:49 Abdomen 2V AP Flat Upright [CR] Routine 04/30/21 10:00 Pantoprazole [ProTONIX] 40 mg PO ACBREAKFAST 04/30/21 10:02 amLODIPine [Norvasc] 7.5 mg PO DAILY 04/30/21 12:00 Magnesium Oxide 500 mg PO BIDMEALS 04/30/21 21:00 Patient's Own Medication [Ptom] 0 each PO BID 05/01/21 05:15 BASIC METABOLIC PANEL,BMP [CHEM] AM CBC WITH AUTO DIFF [HEME] AM - Plan Plan:: presented with weakness, increased confusion has h/o htn, bladder ca, dementia, impaired hearing, noted to have severe hypokalemia, tachycardia met with pt and significant other - both are poor historians, limited insight into prior medical tx., does not know meds, c/o nausea a few days ago then no food intake 3 days, no nausea now, no cp, no sob poor appetite, drinking protein shakes only slipped out of bed few days ago lives with SO, has daughter in [place] A/p: confusion with underlying dementia - 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 chart dr. 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
[2021-04-30] MEDS: Acetaminophen 325 MG Tab PO PRN (10:42)
[2021-04-30] MEDS: Pantoprazole 40 MG Tab.CR PO SCH (10:43)
[2021-04-30] MEDS ORDERED: Iopamidol 612 MG/ML 100 ML Bottle IVPUSH ONE (11:11)
--- NOTE | 2021-04-30 11:40 | CR ---
PROCEDURE INFORMATION: Exam: XR Abdomen Exam date and time: 04/30/2021 11:08 AM Age: 86 years old Clinical indication: Other: Nausea TECHNIQUE: Imaging protocol: XR of the abdomen. Views: Frontal supine view of the abdomen. 1 View. COMPARISON: CT Abdomen Pelvis w wo Cont 03/04/2017 9:42 AM FINDINGS: Gastrointestinal tract: Moderate feces is present throughout the colon. No significant distention of the large or small bowel. Bones/joints: Unremarkable. IMPRESSION: 1. No acute findings. 2. Moderate fecal burden
--- NOTE | 2021-04-30 12:16 | CT ---
PROCEDURE INFORMATION: Exam: CT Abdomen And Pelvis With Contrast Exam date and time: 04/30/2021 11:18 AM Age: 86 years old Clinical indication: Constipation and nausea; Additional info: Nausea, ? obstruction TECHNIQUE: Imaging protocol: Computed tomography of the abdomen and pelvis with contrast. Radiation optimization: All CT scans at this facility use at least one of these dose optimization techniques: automated exposure control; mA and/or kV adjustment per patient size (includes targeted exams where dose is matched to clinical indication); or iterative reconstruction. Contrast material: ISOVUE 300; Contrast volume: 75 ml; Contrast route: INTRAVENOUS (IV); COMPARISON: CT Abdomen Pelvis w wo Cont 03/04/2017 9:42 AM FINDINGS: Lungs: There is mild peribronchovascular thickening and bronchial dilation consistent with mild bronchiectasis. Patchy airspace disease at the posterior right lung base. Liver: Normal. No mass. Gallbladder and bile ducts: Normal. No calcified stones. No ductal dilation. Pancreas: Normal. No ductal dilation. Spleen: Normal. No splenomegaly. Adrenal glands: Normal. No mass. Kidneys and ureters: Simple cyst at the lower pole of the left kidney; No hydronephrosis. Punctate calcification within the interpolar region of the right kidney Stomach and bowel: The rectum is distended up to 7.8 cm secondary to stool. The rectal wall is thickened and there is mild perirectal haziness. No evidence of pneumatosis. Findings are concerning for stercoral colitis and disimpaction is recommended. Abundant stool throughout the colon Appendix: No evidence of appendicitis. Intraperitoneal space: Unremarkable. No free air. No significant fluid collection. Vasculature: The vasculature demonstrates diffuse severe atherosclerotic calcification. Ectatic infrarenal abdominal aorta Lymph nodes: Unremarkable. No enlarged lymph nodes. Urinary bladder: Distended urinary bladder Reproductive: The prostate gland demonstrates nonspecific parenchymal calcifications. Bones/joints: There is multilevel degenerative disc disease. There is diffuse demineralization/osteopenia of the regional skeleton. L1 superior endplate compression fracture is of uncertain age Soft tissues: Bilateral small inguinal hernias containing fat. No bowel within the inguinal hernias. No evidence of strangulation or obstruction. Small left inguinal hernia containing fat; Small right inguinal hernia containing a knuckle of bowel without upstream dilatation. IMPRESSION: 1. Patchy airspace disease at the posterior right lung base. 2. The rectum is distended up to 7.8 cm secondary to stool. The rectal wall is thickened and there is mild perirectal haziness. No evidence of pneumatosis. Findings are concerning for stercoral colitis and disimpaction is recommended. 3. Small right inguinal hernia containing a knuckle of bowel without upstream dilatation. COMMENTS: Consistent with the [employer]'s Incidental Findings Committee white paper (J Am Rishabh Radiol 2018): Any incidental renal lesion less than 1 cm or classified as too small to characterize, or any incidental cystic renal lesion characterized as simple-appearing, is likely benign. No follow-up imaging is recommended for these lesions per consensus recommendations based on imaging criteria.
[2021-04-30] MEDS: Benzocaine/Docusate Sodium 20-283 MG/5 ML Enema RECTAL ONE ×2 (13:15→15:18)
[2021-04-30] MEDS: POTASSIUM CHLORIDE 20 MEQ PO SCH (22:18)
[2021-05-01] MEDS: Pantoprazole 40 MG Tab.CR PO SCH (05:36)
[2021-05-01] MEDS: Heparin Sodium 5,000 Units/ML Vial SUBCUT SCH (05:38)
[2021-05-01] MEDS: Acetaminophen 325 MG Tab PO PRN (05:42)
[2021-05-01 06:50] LABS: ANION GAP 11.8 mEq/L (7-13)
[2021-05-01] MEDS: POTASSIUM CHLORIDE 20 MEQ PO SCH (09:24)
[2021-05-01] MEDS: Aspirin 81 MG Tab.Chew PO SCH (09:24)
--- NOTE | 2021-05-01 12:21 | PCM.DCSUM1 ---
Discharge Summary - Hospital Course Free Text/Narrative:: Mr. Street is an 86-year-old male who lives independently at home with a significant other. He was admitted to the hospital with change in mental status, generalized weakness, nausea, poor appetite, hypokalemia and constipation. He will use of IV fluids as well as potassium replacement. His infectious work-up was negative. The staff were able to get him out of bed. He seemed able to ambulate relatively well using his walker. He was given some laxatives and later on had 3 bowel movements. His nausea resolved and his appetite improved. He was then discharged home and advised to take daily fiber and Senokot. Was also advised to take Ensure 3 times a day to supplement his daily nutritional needs. Patient was discharged home with home health nursing for education on diet, signs and symptoms of constipation, home health physical therapy for str engthening and home health occupational therapy for home safety eval and ADLs. Discharge instructions Condition on discharge: Patient was stable Activity: As tolerated. Patient is already using his walker Diet: Regular Discharge time is 35 minutes Patient follow-up with his PCP in 1 to 2 weeks Physical exam General: Thin elderly male who is awake and alert. In no acute distress. Sitting up in a chair having breakfast CVS: S1-S2 appreciated irregular rate and rhythm. No murmurs rubs or gallops Lungs: Clear bilateral rales or wheezes Abdomen: Soft nontender bowel sounds are present Extremities: There is no clubbing/edema pulses 2+ Neuro: No seizures or tremors. Strength 5 out of 5 bilaterally. Gait not examined. Sensations is intact Diagnosis: Stroke: No - Discharge Data Discharge Date: 05/01/21 Discharge Disposition: Home, W Home Health Agency 06 Condition: Fair - Referral to Home Health Date of Face to Face Encounter: 05/01/21 Reason for Homebound Status: Unable to drive. Poor mobility Primary Care Physician: PCP None Skilled Need: PT/OT and nursing to help with medication reminders, nutritional support. - Discharge Diagnosis/Problem(s) (1) Acute metabolic encephalopathy SNOMED Code(s): 57998244, 289857356 ICD Code: G93.41 - METABOLIC ENCEPHALOPATHY Status: Acute Current Visit: Yes (2) Dementia SNOMED Code(s): 16330485 ICD Code: F03.90 - UNSPECIFIED DEMENTIA WITHOUT BEHAVIORAL DISTURBANCE Status: Chronic Current Visit: Yes (3) Hypokalemia SNOMED Code(s): 31621880 ICD Code: E87.6 - HYPOKALEMIA Status: Acute Current Visit: Yes (4) Weakness SNOMED Code(s): 75804613 ICD Code: R53.1 - WEAKNESS Status: Acute Current Visit: Yes - Patient Summary/Data Consults: Consultations 04/29/21 23:37 OT Evaluation and Treatment [CONS] Routine PT Evaluation and Treatment [CONS] Routine - Discharge Plan *PRESCRIPTION DRUG MONITORING PROGRAM REVIEWED*: No *COPY OF PRESCRIPTION DRUG MONITORING REPORT IN PATIENT YUNIEL: No Prescriptions/Med Rec: Lactose-Reduced Food [Ensure Active High Protein] 414 ml PO TID 30 Days #90 liquid polyethylene glycoL 3350 [MiraLAX] 17 gm PO DAILY 30 Days #30 packet Docusate Sodium/Sennosides [Senokot-S] 1 each PO BID 30 Days #60 tablet Home Medications: Home Meds Chlorthalidone 25 mg PO DAILY 11/11/17 [History] Pembrolizumab [Keytruda] 1 dose IV .[id number] 11/11/17 [History] Potassium Chloride [Klor-Con M20] 40 meq PO BID 11/11/17 [History] amLODIPine [Norvasc] 7.5 mg PO DAILY 11/11/17 [History] Levothyroxine 12.5 mcg PO DAILY 06/18/20 [History] Levothyroxine [Synthroid] 50 mcg PO ACBREAKFAST 06/18/20 [History] Aspirin [Davey Chewable Aspirin] 81 mg PO DAILY 04/30/21 [History] Magnesium Oxide 250 mg PO DAILY 04/30/21 [History] Multivitamin [Multi-Vitamin Daily] 1 tab PO DAILY 04/30/21 [History] Docusate Sodium/Sennosides [Senokot-S] 1 each PO BID 30 Days #60 tablet 05/01/21 [Rx] Lactose-Reduced Food [Ensure Active High Protein] 414 ml PO TID 30 Days #90 liquid 05/01/21 [Rx] polyethylene glycoL 3350 [MiraLAX] 17 gm PO DAILY 30 Days #30 packet 05/01/21 [Rx] Oxygen Therapy Mode: Room Air Patient Handouts: High-Fiber Diet, Hypokalemia, Constipation, Adult, [id number] Referrals: Martinez Jonas MD [Physician] - - Discharge Summary/Plan Comment DC Time >30 min.: Yes Total # of Minutes for Discharge Time: 35 minutes - Patient Data Vitals - Most Recent: Last Vital Signs Temp 97.0 F 05/01/21 07:26 Pulse 73 05/01/21 07:26 Resp 20 05/01/21 07:26 BP 131/77 05/01/21 09:27 Pulse Ox 94 L 05/01/21 07:26 Weight - Most Recent: 136 lb I&O - Last 24 hours: Intake & Output 04/30/21 05/01/21 05/01/21 22:59 06:59 14:59 Intake Total 350 300 240 Balance 350 300 240 Lab Results - Last 24 hrs: Laboratory Results - last 24 hr 05/01/21 05/01/21 Range/Units 06:11 06:11 WBC 9.8 (5.0-10.0) 10^3/uL RBC 4.76 (4.6-6.2) 10^6/uL Hgb 14.5 (14.0-18.0) g/dL Hct 41.7 (40.0-54.0) % MCV 87.6 (80-100) fL MCH 30.5 (27.0-34.0) pg MCHC 34.8 (33.0-35.0) g/dL Plt Count 194 (150-450) 10^3/uL Neut % (Auto) 62.6 (42.2-75.2) % Lymph % (Auto) 25.2 (20.5-50.1) % [place] % (Auto) 11.1 H (2-8) % Eos % (Auto) 0.9 L (1.0-3.0) % Baso % (Auto) 0.2 (0.0-1.0) % Sodium 134 L (136-145) mmol/L Potassium 3.8 (3.5-5.1) mmol/L Chloride 98 (98-107) mmol/L Carbon Dioxide 28 (21-32) mmol/L Anion Gap 11.8 (7-13) mEq/L BUN 21 H (7-18) mg/dL Creatinine 1.22 (0.70-1.30) mg/dL Est Cr Clr Drug Dosing 38.63 mL/min Estimated GFR (MDRD) 56 Glucose 105 H (70-99) mg/dL Calcium 8.7 (8.5-10.1) mg/dL VAIBHAV Results - Last 24 hrs: Microbiology 04/29/21 22:29 Aerobic Blood Culture - Preliminary Blood - Arm, Right NO GROWTH AFTER 1 DAY Anaerobic Blood Culture - Preliminary NO GROWTH AFTER 1 DAY 04/29/21 20:53 Aerobic Blood Culture - Preliminary Blood - Venous - Iv Start NO GROWTH AFTER 1 DAY Anaerobic Blood Culture - Final Med Orders - Current: Current Medications Acetaminophen (Acetaminophen 325 Mg Tab) 650 mg PO Q4H PRN PRN Reason: Pain (Mild 1-3)/fever Last Admin: 05/01/21 05:42 Dose: 650 mg Documented by: Amlodipine Besylate (Amlodipine 5 Mg Tab *Own Med*) 7.5 mg PO DAILY COUNT INCLUDES THE [facility] Last Admin: 05/01/21 09:27 Dose: 7.5 mg Documented by: Aspirin (Aspirin 81 Mg Tab.Chew) 81 mg PO WITHBREAKFAST COUNT INCLUDES THE [facility] Last Admin: 05/01/21 09:24 Dose: 81 mg Documented by: Chlorthalidone (Chlorthalidone 25 Mg Tab *Own Med*) 25 mg PO DAILY COUNT INCLUDES THE [facility] Last Admin: 05/01/21 09:25 Dose: 25 mg Documented by: Docusate Sodium (Docusate Sodium 100 Mg Cap) 100 mg PO BID PRN PRN Reason: Constipation Heparin Sodium (Porcine) (Heparin Sodium 5,000 Units/Ml Vial) 5,000 units SUBCUT Q8HR COUNT INCLUDES THE [facility] Last Admin: 05/01/21 05:38 Dose: Not Given Documented by: Levothyroxine Sodium (Levothyroxine 25 Mcg Tab *Own Med*) 12.5 mcg PO ACBREAKFAST COUNT INCLUDES THE [facility] Last Admin: 05/01/21 05:37 Dose: 12.5 mcg Documented by: Levothyroxine Sodium (Levothyroxine 50 Mcg Tab *Own Med*) 50 mcg PO ACBREAKFAST COUNT INCLUDES THE [facility] Last Admin: 05/01/21 05:37 Dose: 50 mcg Documented by: Ondansetron HCl (Ondansetron 4 Mg/2 Ml Sdv) 4 mg IVPUSH Q4H PRN PRN Reason: Nausea/Vomiting Last Admin: 04/30/21 09:26 Dose: 4 mg Documented by: Pantoprazole Sodium (Pantoprazole 40 Mg Tab.Cr) 40 mg PO ACBREAKFAST COUNT INCLUDES THE [facility] Last Admin: 05/01/21 05:36 Dose: 40 mg Documented by: Potassium Chloride 20 Meq Tab.Er *Own Med* 0 each PO BID COUNT INCLUDES THE [facility] Last Admin: 05/01/21 09:24 Dose: 1 each Documented by: Sodium Chloride (Sodium Chloride 0.9% 10 Ml Syringe) 10 ml FLUSH ASDIRECTED PRN PRN Reason: Keep Vein Open Last Admin: 04/30/21 22:39 Dose: 10 ml Documented by: Temazepam (Temazepam 15 Mg Cap) 15 mg PO BEDTIME PRN PRN Reason: Sleep Discontinued Medications Amlodipine Besylate (Amlodipine 5 Mg Tab) 7.5 mg PO DAILY COUNT INCLUDES THE [facility] Last Admin: 04/30/21 08:57 Dose: 7.5 mg Documented by: Chlorthalidone (Chlorthalidone 25 Mg Tab) 25 mg PO DAILY COUNT INCLUDES THE [facility] Last Admin: 04/30/21 09:00 Dose: 25 mg Documented by: Docusate Sodium/Benzocaine (Benzocaine/Docusate Sodium 20-283 Mg/5 Ml Enema) 1 each RECTAL ONETIME ONE Stop: 04/30/21 12:33 Last Admin: 04/30/21 15:18 Dose: Not Given Documented by: Sodium Chloride (Normal Saline) 1,000 mls @ 150 mls/hr IV .BOLUS ONE Stop: 04/30/21 03:59 Last Admin: 04/29/21 22:26 Dose: 150 mls/hr Documented by: Potassium Chloride 20 meq/ (Premix) 100 mls @ 50 mls/hr IV ONETIME ONE Stop: 04/30/21 00:18 Last Admin: 04/29/21 22:27 Dose: 50 mls/hr Documented by: Potassium Chloride 10 meq/ (Premix) 100 mls @ 50 mls/hr IV Q2H KAYA Stop: 04/30/21 11:44 Last Admin: 04/30/21 10:43 Dose: 50 mls/hr Documented by: Iopamidol (Iopamidol 612 Mg/Ml 100 Ml Bottle) 100 ml IVPUSH ONETIME ONE Stop: 04/30/21 11:12 Last Admin: 04/30/21 11:52 Dose: 75 ml Documented by: Levothyroxine Sodium (Levothyroxine 25 Mcg Tab) 12.5 mcg PO ACBREAKFAST COUNT INCLUDES THE [facility] Last Admin: 04/30/21 06:00 Dose: 12.5 mcg Documented by: Levothyroxine Sodium (Levothyroxine 50 Mcg Tab) 50 mcg PO ACBREAKFAST COUNT INCLUDES THE [facility] Last Admin: 04/30/21 06:00 Dose: 50 mcg Documented by: Magnesium Oxide (Magnesium Oxide 250 Mg Tab) 500 mg PO BIDMEALS COUNT INCLUDES THE [facility] Stop: 04/30/21 18:01 Last Admin: 04/30/21 18:42 Dose: 500 mg Documented by: Potassium Chloride (Potassium Chloride 10 Meq Tab.Er) 40 meq PO BID COUNT INCLUDES THE [facility] Last Admin: 04/30/21 09:00 Dose: 40 meq Documented by:
== END 2021-05-01 13:00 | disposition home health service (06) ==
LOC: DL.ED 20:30 → DL.MS 23:20
PROVIDERS: ADMIT Internal Medicine; ATTEND Hospitalist
DX: K59.00 Constipation, unspecified (principal); E87.6 Hypokalemia; R41.82 Altered mental status, unspecified; Z20.822 Contact with and (suspected) exposure to COVID-19
CPT/HCPCS: 36415; 70450; 71045; 74018; 74177; 80048; 80053; 80076; 81003; 83605; 83735; 83880; 84100; 84443; 84484; 85025; 85610; 87040; 87804; 87807; 93005; 96365; 96366; 96372; 96375; 97165; 99285; A9270; G0378; J1644; J2405; J3480; J7030; Q9967; U0002

== ENCOUNTER 2021-05-02 11:41 | Inpatient (IN) | payer MEDICARE, BC ==
[2021-05-02] MEDS ORDERED: Sodium Chloride 0.9% 10 ML Syringe FLUSH PRN (11:44)
--- NOTE | 2021-05-02 11:58 | EDM.PDOC ---
<José Antonio Castrejon - Last Filed: 05/02/21 12:39> ED HPI GENERAL MEDICAL PROBLEM - General Time Seen by Provider: 05/02/21 11:42 - Related Data Allergies Allergy/AdvReac Type Severity Reaction Status Date / Time atorvastatin [From Lipitor] AdvReac Muscle Verified 04/29/21 20:57 Aches Home Meds: Home Meds Chlorthalidone 25 mg PO DAILY 11/11/17 [History] Pembrolizumab [Keytruda] 1 dose IV .[id number] 11/11/17 [History] Potassium Chloride [Klor-Con M20] 40 meq PO BID 11/11/17 [History] amLODIPine [Norvasc] 7.5 mg PO DAILY 11/11/17 [History] Levothyroxine 12.5 mcg PO DAILY 06/18/20 [History] Levothyroxine [Synthroid] 50 mcg PO ACBREAKFAST 06/18/20 [History] Aspirin [Davey Chewable Aspirin] 81 mg PO DAILY 04/30/21 [History] Magnesium Oxide 250 mg PO DAILY 04/30/21 [History] Multivitamin [Multi-Vitamin Daily] 1 tab PO DAILY 04/30/21 [History] Docusate Sodium/Sennosides [Senokot-S] 1 each PO BID 30 Days #60 tablet 05/01/21 [Rx] Lactose-Reduced Food [Ensure Active High Protein] 414 ml PO TID 30 Days #90 liq uid 05/01/21 [Rx] polyethylene glycoL 3350 [MiraLAX] 17 gm PO DAILY 30 Days #30 packet 05/01/21 [Rx] #1 Interpretation EKG Date: 05/02/21 Time: 12:23 Rhythm: Other (SR) Rate (Beats/Min): 72 [place]: Normal P-Wave: Present QRS: Other (Low voltage) ST-T: Normal QT: Normal Comparison: No Change Departure - Departure Disposition: Admitted As Inpatient 67 Clinical Impression: Weakness Altered mental status Qualifiers: Altered mental status type: disorientation Qualified Code(s): R41.0 - Disorientation, unspecified - Discharge Information <Delfino Gomez - Last Filed: 05/02/21 13:37> ED HPI GENERAL MEDICAL PROBLEM - General Source of Information: Reports: Patient History Limitations: Reports: Altered Mental Status - History of Present Illness INITIAL COMMENTS - FREE TEXT/NARRATIVE: 86 y/o M brought in by family for weakness and lethargy. EMS states pts significant other awoke this morning and found pt not acting right and seeming very weak. EMS was called and brought pt to ER. Per EMS pt was lethargic on scene and required two person lift to the cot. During transport pt appeared to increase in alertness and was more conversant with EMS. Pt reports no complaints to staff. Was recently discharged from here after treatment for low potassium. Denies light, vision prob, cp, db, abd pn, weakness, diff voiding, extremity pain, recent falls. Onset: Unknown/Unsure Duration: Hour(s): Location: Reports: Generalized Past Medical History HEENT History: Reports: Impaired Vision, Other (See Below) Other HEENT History: WEARS CORRECTIVE LENS Cardiovascular History: Reports: High Cholesterol, Hypertension Respiratory History: Reports: None Gastrointestinal History: Reports: Chronic Constipation, Other (See Below) Other Gastrointestinal History: S/P HYPOKALEMIA. RIGHT INGUINAL HERNIA Genitourinary History: Reports: Other (See Below) Other Genitourinary History: HX OF URINARY CA Musculoskeletal History: Reports: Fracture Other Musculoskeletal History: HX OF FRACTURE IN RIGHT ARM Neurological History: Reports: None Psychiatric History: Reports: Anxiety Endocrine/Metabolic History: Reports: Hypothyroidism Hematologic History: Reports: None Immunologic History: Reports: Immunosuppression Oncologic (Cancer) History: Reports: Bladder Dermatologic History: Reports: Other (See Below) Other Dermatologic History: HX OF HERPES ZOSTER - Infectious Disease History Infectious Disease History: Reports: Influenza, Measles - Past Surgical History Head Surgeries/Procedures: Reports: None HEENT Surgical History: Reports: Adenoidectomy, Tonsillectomy Cardiovascular Surgical History: Reports: None Respiratory Surgical History: Reports: None GI Surgical History: Reports: Colonoscopy Male Surgical History: Reports: None Endocrine Surgical History: Reports: None Neurological Surgical History: Reports: None Musculoskeletal Surgical History: Reports: None Oncologic Surgical History: Reports: None Dermatological Surgical History: Reports: None Social & Family History - Family History Family Medical History: No Pertinent Family History - Caffeine Use Caffeine Use: Reports: Tea Other Caffeine Use: 'ONCE IN AWHILE' - Living Situation & Occupation Living situation: Reports: , with Family Occupation: Retired ED ROS GENERAL - Review of Systems Review Of Systems: Comprehensive ROS is negative, except as noted in HPI. ED EXAM, NEURO - Physical Exam Exam: See Below Exam Limited By: Other (lethargic) General Appearance: Alert Eye Exam: Bilateral Eye: PERRL Nose: Normal Inspection, Normal Mucosa, No Blood Throat/Mouth: Other (dry oropharynx, no visible oral trauma.) Head Exam: Atraumatic, Normocephalic Neck: Normal Inspection, Supple, Non-Tender, Full Range of Motion Respiratory/Chest: No Respiratory Distress, Lungs Clear, Normal Breath Sounds, No Accessory Muscle Use, Chest Non-Tender Cardiovascular: Normal Peripheral Pulses, Regular Rate, Rhythm, No Edema GI/Abdominal: Non-Tender (Male) Exam: Deferred Rectal (Males) Exam: Deferred Neurological: Alert, Other (oriented to person and year but does not know the date. ) Back Exam: Normal Inspection, Full Range of Motion Extremities: Normal Inspection, Normal Range of Motion, Non-Tender, No Pedal Edema, Normal Capillary Refill Psychiatric: Normal Affect, Normal Mood Skin Exam: Warm, Dry, Intact Course - Orders/Labs/Meds Orders: Active Orders 24 hr Category Date Time Status Blood Glucose Check, Bedside [RC] ONETIME Care 05/02/21 11:44 Active EKG 12 Lead [EKG Documentation Completion] [RC] STAT Care 05/02/21 11:44 Active NIH Stroke Scale [RC] ASDIRECTED Care 05/02/21 11:45 Active Peripheral IV Care [RC] . DIRECTED Care 05/02/21 11:45 Active CULTURE BLOOD [BC] Stat Lab 05/02/21 12:15 Received CULTURE BLOOD [BC] Stat Lab 05/02/21 12:15 Received DRUG SCREEN URINE BIORAD [URCHEM] Stat Lab 05/02/21 11:44 Ordered UA RFX VAIBHAV AND CULT IF INDIC [URIN] Stat Lab 05/02/21 11:45 Ordered Sodium Chloride 0.9% [Saline Flush] Med 05/02/21 11:44 Active 10 ml FLUSH ASDIRECTED PRN Blood Culture x2 Reflex Set [OM.PC] Stat Oth 05/02/21 11:44 Ordered Peripheral IV Insertion Adult [OM.PC] Stat Oth 05/02/21 11:45 Ordered Medication Orders Sodium Chloride (Sodium Chloride 0.9% 10 Ml Syringe) 10 ml FLUSH ASDIRECTED PRN PRN Reason: Keep Vein Open Labs: Laboratory Tests 05/02/21 05/02/21 05/02/21 Range/Units 12:15 12:15 12:15 WBC 9.0 (5.0-10.0) 10^3/uL RBC 5.12 (4.6-6.2) 10^6/uL Hgb 15.7 (14.0-18.0) g/dL Hct 44.5 (40.0-54.0) % MCV 86.9 (80-100) fL MCH 30.7 (27.0-34.0) pg MCHC 35.3 H (33.0-35.0) g/dL Plt Count 205 (150-450) 10^3/uL Neut % (Auto) 74.4 (42.2-75.2) % Lymph % (Auto) 16.1 L (20.5-50.1) % [place] % (Auto) 8.9 H (2-8) % Eos % (Auto) 0.4 L (1.0-3.0) % Baso % (Auto) 0.2 (0.0-1.0) % PT 11.0 (9.0-12.0) SEC INR 1.1 (0.9-1.2) APTT 25.2 (22.0-34.0) SEC Sodium 133 L (136-145) mmol/L Potassium 3.4 L (3.5-5.1) mmol/L Chloride 94 L (98-107) mmol/L Carbon Dioxide 28 (21-32) mmol/L Anion Gap 14.4 H (7-13) mEq/L BUN 19 H (7-18) mg/dL Creatinine 1.20 (0.70-1.30) mg/dL Est Cr Clr Drug Dosing TNP Estimated GFR (MDRD) 58 BUN/Creatinine Ratio 15.8 (No establ ref range) Glucose 109 H (70-99) mg/dL Calcium 8.7 (8.5-10.1) mg/dL Total Bilirubin 1.1 H (0.2-1.0) mg/dL AST 22 (15-37) U/L ALT 25 (16-63) U/L Alkaline Phosphatase 55 (46-116) U/L Troponin I High Sens 11 (<=76) pg/mL C-Reactive Protein 0.8 (0.0-0.9) mg/dL Total Protein 7.2 (6.4-8.2) g/dL Albumin 3.2 L (3.4-5.0) g/dL Globulin 4.0 Albumin/Globulin Ratio 0.80 Ethyl Alcohol < 3 (0) mg/dL Meds: Medications Generic Name Dose Route Start Last Admin Trade Name Freq PRN Reason Stop Dose Admin Sodium Chloride 10 ml 05/02/21 11:44 Sodium Chloride 0.9% 10 Ml Syringe FLUSH ASDIRECTED PRN Keep Vein Open - Re-Assessments/Exams Free Text/Narrative Re-Assessment/Exam: 05/02/21 13:33 Discussed admission and possible penitentiary placement with pt. Pt is agreeable to admission and possible penitentiary placement . Departure - Departure Time of Disposition: 13:31 (Admitted to Dr. Chiu) Condition: Fair - Discharge Information *PRESCRIPTION DRUG MONITORING PROGRAM REVIEWED*: Not Applicable *COPY OF PRESCRIPTION DRUG MONITORING REPORT IN PATIENT YUNIEL: Not Applicable
--- NOTE | 2021-05-02 12:02 | CT ---
EXAMINATION: Head wo Cont SEX: Male AGE: 86 years CLINICAL HISTORY: 86-year-old male with bladder cancer and now ACUTE CONFUSION who was just discharged from the hospital. Comparison CT head 29 April 2021. Scan technique: Volume acquisition of data emergency unenhanced CT scan of the head and brain obtained with the patient lying supine on the Siemens multi slice scanner [place], [place]. All data archived in the PACS system for storage, reformatting axial/sagittal/coronal planes and study (bone/brain windows). Interpretation: Abnormal but unchanged. Chronic Multi-infarct ischemic disease. No new evidence for intracranial mass or bleed. See #2 below with regards to ventricular system. 1. Uniformly thick bony calvarium without sign of pathologic skeletal lesion, skull fracture, underlying brain contusion or epidural/subdural hematoma. Symmetric clear pneumatization of the paranasal and mastoid sinuses. 2. *Symmetric mirror-image prominence of the ventricular system out of proportion to overlying atrophy and although "unchanged" since recent exam 29 April 2021 suggests possibility of normal pressure normotensive hydrocephalus. 3. No sign of acute intracerebral, intraventricular or subarachnoid bleed. 4. Multiple areas of decreased attenuation (ischemic infarcts) identified throughout the periventricular white matter of both cerebral hemispheres and cerebellum on the right unchanged since recent comparison exam 29 April 2021. (Recommend consideration elective MRI of the head and brain)
[2021-05-02 12:42] LABS: PTT,PARTIAL THROMBOPLSTIN TIME 25.2 SEC (22.0-34.0)
[2021-05-02 12:46] LABS: ANION GAP 14.4 mEq/L (7-13); CHLORIDE,CL 94 mmol/L (98-107); SODIUM,NA 133 mmol/L (136-145)
[2021-05-02] MEDS ORDERED: Ondansetron 4 MG Tab.DIS PO PRN (14:10)
[2021-05-02] MEDS ORDERED: oxyCODONE 5 MG Tab PO PRN (14:10)
[2021-05-02 14:31] LABS: AMPHETAMINES,URINE NEGATIVE (NEGATIVE); BARBITURATES,URINE NEGATIVE (NEGATIVE); BENZODIAZEPINE,URINE NEGATIVE (NEGATIVE); MDMA (ECSTASY), URINE NEGATIVE (NEGATIVE); METHADONE,URINE NEGATIVE (NEGATIVE); METHAMPHETAMINES,URINE NEGATIVE (NEGATIVE); OPIATES,URINE NEGATIVE (NEGATIVE); OXYCODONE,URINE NEGATIVE (NEGATIVE); PHENCYCLIDINE,URINE NEGATIVE (NEGATIVE); TCA,URINE NEGATIVE (NEGATIVE)
--- NOTE | 2021-05-02 14:47 | PCM.HP ---
H&P History of Present Illness - General Date of Service: 05/02/21 Admit Problem/Dx: Admission Diagnosis/Problem Admission Diagnosis/Problem Failure to thrive, Generalized weakness. - History of Present Illness Other HPI/Comments: Mr. Street is an 86-year-old male with history of dementia who was just admitted to the hospital on 04/30/2021 with multiple issues that included generalized weakness, malaise, hypokalemia ,dehydration, nausea, anorexia and constipation. The patient was kept in the hospital overnight under observation status and received IV hydration, electrolyte replacement, nutritional supplem entation, laxatives, PT and OT treatments. Yesterday he felt better and requested to go home. He was discharged home but later in the evening he again got weak and was unable to get out of bed on his own. This morning his /significant other had trouble getting him out of bed and called the EMS to bring him back to the hospital. As per the , the patient had some chicken noodle soup last night but has not eaten anything today. The and the two daughters would like for him to be placed at a fci facility. He otherwise denies having any complaints such as fevers, chills, malaise or any other issues. He is able to respond to a few questions on his own but generally does not spontaneously volunteer much of any information. - Related Data Allergies/Adverse Reactions: Allergies Allergy/AdvReac Type Severity Reaction Status Date / Time atorvastatin [From Lipitor] AdvReac Muscle Verified 04/29/21 20:57 Aches Home Medications: Home Meds Chlorthalidone 25 mg PO DAILY 11/11/17 [History] Pembrolizumab [Keytruda] 1 dose IV .[id number] 11/11/17 [History] Potassium Chloride [Klor-Con M20] 40 meq PO BID 11/11/17 [History] amLODIPine [Norvasc] 7.5 mg PO DAILY 11/11/17 [History] Levothyroxine 12.5 mcg PO DAILY 06/18/20 [History] Levothyroxine [Synthroid] 50 mcg PO ACBREAKFAST 06/18/20 [History] Aspirin [Davey Chewable Aspirin] 81 mg PO DAILY 04/30/21 [History] Magnesium Oxide 250 mg PO DAILY 04/30/21 [History] Multivitamin [Multi-Vitamin Daily] 1 tab PO DAILY 04/30/21 [History] Docusate Sodium/Sennosides [Senokot-S] 1 each PO BID 30 Days #60 tablet 05/01/21 [Rx] Lactose-Reduced Food [Ensure Active High Protein] 414 ml PO TID 30 Days #90 liquid 05/01/21 [Rx] polyethylene glycoL 3350 [MiraLAX] 17 gm PO DAILY 30 Days #30 packet 05/01/21 [Rx] Past Medical History HEENT History: Reports: Impaired Vision, Other (See Below) Other HEENT History: WEARS CORRECTIVE LENS Cardiovascular History: Reports: High Cholesterol, Hypertension Respiratory History: Reports: None Gastrointestinal History: Reports: Chronic Constipation, Other (See Below) Other Gastrointestinal History: S/P HYPOKALEMIA. RIGHT INGUINAL HERNIA Genitourinary History: Reports: Other (See Below) Other Genitourinary History: HX OF URINARY CA Musculoskeletal History: Reports: Fracture Other Musculoskeletal History: HX OF FRACTURE IN RIGHT ARM Neurological History: Reports: None Psychiatric History: Reports: Anxiety Endocrine/Metabolic History: Reports: Hypothyroidism Hematologic History: Reports: None Immunologic History: Reports: Immunosuppression Oncologic (Cancer) History: Reports: Bladder Dermatologic History: Reports: Other (See Below) Other Dermatologic History: HX OF HERPES ZOSTER - Infectious Disease History Infectious Disease History: Reports: Influenza, Measles - Past Surgical History Head Surgeries/Procedures: Reports: None HEENT Surgical History: Reports: Adenoidectomy, Tonsillectomy Cardiovascular Surgical History: Reports: None Respiratory Surgical History: Reports: None GI Surgical History: Reports: Colonoscopy Male Surgical History: Reports: None Endocrine Surgical History: Reports: None Neurological Surgical History: Reports: None Musculoskeletal Surgical History: Reports: None Oncologic Surgical History: Reports: None Dermatological Surgical History: Reports: None Social & Family History - Family History Family Medical History: No Pertinent Family History - Caffeine Use Caffeine Use: Reports: Tea Other Caffeine Use: 'ONCE IN AWHILE' - Living Situation & Occupation Living situation: Reports: , with Family Occupation: Retired H&P Review of Systems - Review of Systems: Review Of Systems: See Below Free Text/Narrative: General: He denies any fever or chills CVS: Pt denies having any chest pain or edema lungs: Denies any cough, wheezes or dyspnea Pa: Denies having any nausea, vomiting or abdominal pain today MIGUEL: Denies having any dysuria, frequency, urgency or hematuria neuro: Denies having any seizures, tremors or focal weaknesses. Exam - Exam Exam: See Below - Vital Signs Vital Signs: Last Vital Signs Temp 98.7 F 05/02/21 14:31 Pulse 77 05/02/21 14:31 Resp 20 05/02/21 14:31 BP 151/88 H 05/02/21 14:31 Pulse Ox 100 05/02/21 14:31 - Exam Physical Exam Comments:: General: This is a frail elderly male who is awake and alert no distress HEENT: NC, AT, PERRLA, EOMI. CVS: S1S2 appreciated. RRR. no murmurs gallops Lungs are clear to auscultation bilaterally. No rales or wheezes. PA: Soft, nontender, bowel sounds are presents Extremities: no clubbing, cyanosis or edema. Peripheral pulses 2+ Neuro exam: patient moves all his extremities, sensation is intact, gait not examined Psych: patient has a flat affect - Patient Data Lab Results Last 24 hrs: Laboratory Results - last 24 hr 05/02/21 05/02/21 05/02/21 Range/Units 12:15 12:15 12:15 WBC 9.0 (5.0-10.0) 10^3/uL RBC 5.12 (4.6-6.2) 10^6/uL Hgb 15.7 (14.0-18.0) g/dL Hct 44.5 (40.0-54.0) % MCV 86.9 (80-100) fL MCH 30.7 (27.0-34.0) pg MCHC 35.3 H (33.0-35.0) g/dL Plt Count 205 (150-450) 10^3/uL Neut % (Auto) 74.4 (42.2-75.2) % Lymph % (Auto) 16.1 L (20.5-50.1) % [place] % (Auto) 8.9 H (2-8) % Eos % (Auto) 0.4 L (1.0-3.0) % Baso % (Auto) 0.2 (0.0-1.0) % PT 11.0 (9.0-12.0) SEC INR 1.1 (0.9-1.2) APTT 25.2 (22.0-34.0) SEC Sodium 133 L (136-145) mmol/L Potassium 3.4 L (3.5-5.1) mmol/L Chloride 94 L (98-107) mmol/L Carbon Dioxide 28 (21-32) mmol/L Anion Gap 14.4 H (7-13) mEq/L BUN 19 H (7-18) mg/dL Creatinine 1.20 (0.70-1.30) mg/dL Est Cr Clr Drug Dosing TNP Estimated GFR (MDRD) 58 BUN/Creatinine Ratio 15.8 (No establ ref range) Glucose 109 H (70-99) mg/dL Calcium 8.7 (8.5-10.1) mg/dL Total Bilirubin 1.1 H (0.2-1.0) mg/dL AST 22 (15-37) U/L ALT 25 (16-63) U/L Alkaline Phosphatase 55 (46-116) U/L Troponin I High Sens 11 (<=76) pg/mL C-Reactive Protein 0.8 (0.0-0.9) mg/dL Total Protein 7.2 (6.4-8.2) g/dL Albumin 3.2 L (3.4-5.0) g/dL Globulin 4.0 Albumin/Globulin Ratio 0.80 Urine Color (YELLOW) Urine Appearance (CLEAR) Urine pH (5.0-9.0) Ur Specific [place] (1.005-1.030) Urine Protein (NEGATIVE) Urine Glucose (UA) (NEGATIVE) Urine Ketones (NEGATIVE) Urine Occult Blood (NEGATIVE) Urine Nitrite (NEGATIVE) Urine Bilirubin (NEGATIVE) Urine Urobilinogen (0.2-1.0) mg/dL Ur Leukocyte Esterase (NEGATIVE) Urine Opiates Screen (NEGATIVE) Ur Oxycodone Screen (NEGATIVE) Urine Methadone Screen (NEGATIVE) Ur Barbiturates Screen (NEGATIVE) U Tricyclic Antidepress (NEGATIVE) Ur Phencyclidine Scrn (NEGATIVE) Ur Amphetamine Screen (NEGATIVE) U Methamphetamines Scrn (NEGATIVE) Urine MDMA Screen (NEGATIVE) U Benzodiazepines Scrn (NEGATIVE) Urine Cocaine Screen (NEGATIVE) U Marijuana (THC) Screen (NEGATIVE) Ethyl Alcohol < 3 (0) mg/dL 05/02/21 05/02/21 Range/Units 14:10 14:10 WBC (5.0-10.0) 10^3/uL RBC (4.6-6.2) 10^6/uL Hgb (14.0-18.0) g/dL Hct (40.0-54.0) % MCV (80-100) fL MCH (27.0-34.0) pg MCHC (33.0-35.0) g/dL Plt Count (150-450) 10^3/uL Neut % (Auto) (42.2-75.2) % Lymph % (Auto) (20.5-50.1) % [place] % (Auto) (2-8) % Eos % (Auto) (1.0-3.0) % Baso % (Auto) (0.0-1.0) % PT (9.0-12.0) SEC INR (0.9-1.2) APTT (22.0-34.0) SEC Sodium (136-145) mmol/L Potassium (3.5-5.1) mmol/L Chloride (98-107) mmol/L Carbon Dioxide (21-32) mmol/L Anion Gap (7-13) mEq/L BUN (7-18) mg/dL Creatinine (0.70-1.30) mg/dL Est Cr Clr Drug Dosing Estimated GFR (MDRD) BUN/Creatinine Ratio (No establ ref range) Glucose (70-99) mg/dL Calcium (8.5-10.1) mg/dL Total Bilirubin (0.2-1.0) mg/dL AST (15-37) U/L ALT (16-63) U/L Alkaline Phosphatase (46-116) U/L Troponin I High Sens (<=76) pg/mL C-Reactive Protein (0.0-0.9) mg/dL Total Protein (6.4-8.2) g/dL Albumin (3.4-5.0) g/dL Globulin Albumin/Globulin Ratio Urine Color Yellow (YELLOW) Urine Appearance Clear (CLEAR) Urine pH 7.0 (5.0-9.0) Ur Specific [place] 1.025 (1.005-1.030) Urine Protein Negative (NEGATIVE) Urine Glucose (UA) Negative (NEGATIVE) Urine Ketones Negative (NEGATIVE) Urine Occult Blood Negative (NEGATIVE) Urine Nitrite Negative (NEGATIVE) Urine Bilirubin Negative (NEGATIVE) Urine Urobilinogen 0.2 (0.2-1.0) mg/dL Ur Leukocyte Esterase Negative (NEGATIVE) Urine Opiates Screen Negative (NEGATIVE) Ur Oxycodone Screen Negative (NEGATIVE) Urine Methadone Screen Negative (NEGATIVE) Ur Barbiturates Screen Negative (NEGATIVE) U Tricyclic Antidepress Negative (NEGATIVE) Ur Phencyclidine Scrn Negative (NEGATIVE) Ur Amphetamine Screen Negative (NEGATIVE) U Methamphetamines Scrn Negative (NEGATIVE) Urine MDMA Screen Negative (NEGATIVE) U Benzodiazepines Scrn Negative (NEGATIVE) Urine Cocaine Screen Negative (NEGATIVE) U Marijuana (THC) Screen Negative (NEGATIVE) Ethyl Alcohol (0) mg/dL Result Diagrams: 05/02/21 12:15 05/02/21 12:15 - Problem List (1) FTT (failure to thrive) in adult SNOMED Code(s): 175465261 ICD Code: R62.7 - ADULT FAILURE TO THRIVE Status: Acute Current Visit: Yes (2) Weakness SNOMED Code(s): 28473703 ICD Code: R53.1 - WEAKNESS Status: Acute Current Visit: No (3) Dementia SNOMED Code(s): 71551445 ICD Code: F03.90 - UNSPECIFIED DEMENTIA WITHOUT BEHAVIORAL DISTURBANCE Status: Chronic Current Visit: No (4) HTN (hypertension) SNOMED Code(s): 71235076 ICD Code: I10 - ESSENTIAL (PRIMARY) HYPERTENSION Status: Acute Priority: Low Current Visit: No (5) Hypokalemia SNOMED Code(s): 75084052 ICD Code: E87.6 - HYPOKALEMIA Status: Acute Priority: Medium Current Visit: No Problem List Initiated/Reviewed/Updated: Yes Orders Last 24hrs: Active Orders 24 hr Category Date Time Status Patient Status [ADT] Routine ADT 05/02/21 13:50 Active Patient Status [ADT] Routine ADT 05/02/21 14:10 Active Blood Glucose Check, Bedside [] ONETIME Care 05/02/21 11:44 Active EKG 12 Lead [EKG Documentation Completion] [RC] STAT Care 05/02/21 11:44 Active NIH Stroke Scale [RC] ASDIRECTED Care 05/02/21 11:45 Active Oxygen Therapy [RC] PRN Care 05/02/21 14:10 Active Peripheral IV Care [RC] . DIRECTED Care 05/02/21 11:45 Active Up With Assistance [RC] ASDIRECTED Care 05/02/21 14:10 Active VTE/DVT Education [RC] PER UNIT ROUTINE Care 05/02/21 14:10 Active Vital Signs [RC] Q4H Care 05/02/21 14:10 Active OT Evaluation and Treatment [CONS] Routine Cons 05/02/21 14:10 Active PT Evaluation and Treatment [CONS] Routine Cons 05/02/21 14:10 Active Regular Diet [DIET] Diet 05/02/21 Dinner Active CULTURE BLOOD [BC] Stat Lab 05/02/21 12:15 Received CULTURE BLOOD [BC] Stat Lab 05/02/21 12:15 Received Enoxaparin [Lovenox] Med 05/02/21 15:00 Active 30 mg SUBCUT DAILY Ondansetron [Zofran ODT] Med 05/02/21 14:10 Active 4 mg PO Q4H PRN Potassium Chloride [Klor-Con 10] Med 05/02/21 15:00 Once 40 meq PO ONETIME ONE oxyCODONE Med 05/02/21 14:10 Active 5 mg PO Q4H PRN Blood Culture x2 Reflex Set [OM.PC] Stat Oth 05/02/21 11:44 Ordered Peripheral IV Insertion Adult [OM.PC] Stat Oth 05/02/21 11:45 Ordered Resuscitation Status Routine Resus Stat 05/02/21 14:10 Ordered Medication Orders Enoxaparin Sodium (Enoxaparin 30 Mg/0.3 Ml Syringe) 30 mg SUBCUT DAILY KAYA Ondansetron HCl (Ondansetron 4 Mg Tab.Dis) 4 mg PO Q4H PRN PRN Reason: nausea, able to take PO Oxycodone HCl (Oxycodone 5 Mg Tab) 5 mg PO Q4H PRN PRN Reason: Pain (moderate 4-6) Potassium Chloride (Potassium Chloride 10 Meq Tab.Er) 40 meq PO ONETIME ONE Stop: 05/02/21 15:01 Assessment/Plan Comment:: Adult failure to thrive Admit patient to the medical floor. We will order physical and occupational therapy Case management to assist with SNF placement. Will offer nutrition supplementation Generalized weakness and debility PT and OT to eval and treat Hypertension Resume novasc Will discontinue the thiazide diuretic and start metoprolol given that he is becoming dehydrated easily while on the the medication Hypothyroidism On synthroid. Full CODE STATUS As per patient wishes DVT prophylaxis Subcu Lovenox Patient will need more than 2 midnight stays before he can be accepted into a SNF.
[2021-05-02] MEDS ORDERED: Potassium Chloride 10 MEQ Tab.ER PO ONE (15:00)
[2021-05-02] MEDS ORDERED: Potassium Chloride 10% 20 MEQ/15 ML Soln 15 ML UD Cup PO ONE (15:00)
[2021-05-02] MEDS: Enoxaparin 30 MG/0.3 ML Syringe SUBCUT SCH (16:25)
[2021-05-02] MEDS ORDERED: PEMBROLIZUMAB 100 MG/4 ML IV SCH (20:15)
[2021-05-02] MEDS ORDERED: hydrALAZINE 25 MG Tab PO PRN (20:34)
[2021-05-03] MEDS: Aspirin 81 MG Tab.Chew PO SCH ×2 (04:34→08:43)
[2021-05-03] MEDS: Metoprolol Tartrate 50 MG Tab PO SCH ×4 (04:34→20:38)
[2021-05-03] MEDS: Potassium Chloride 10 MEQ Tab.ER PO SCH ×3 (04:35→20:38)
[2021-05-03] MEDS: amLODIPine 5 MG Tab PO SCH ×2 (04:35→08:43)
[2021-05-03] MEDS: Levothyroxine 25 MCG Tab PO SCH (06:11)
[2021-05-03] MEDS: Levothyroxine 50 MCG Tab PO SCH (06:11)
[2021-05-03] MEDS: Polyethylene Glycol 3350 Powder 17 GM Packet PO SCH (08:43)
[2021-05-03] MEDS: Multivitamin Tab PO SCH (08:43)
[2021-05-03] MEDS: Enoxaparin 30 MG/0.3 ML Syringe SUBCUT SCH (08:43)
--- NOTE | 2021-05-03 11:55 | PCM.PN ---
- General Info Date of Service: 05/03/21 Admission Dx/Problem (Free Text): Generalized weakness Subjective Update: No new complaints reported. Pt has had no bowel movement for the past two days. He ate about 40% of his breakfast this morning. - Patient Data Vitals - Most Recent: Last Vital Signs Temp 99.3 F 05/03/21 08:00 Pulse 60 05/03/21 08:00 Resp 18 05/03/21 08:00 BP 156/93 H 05/03/21 08:43 Pulse Ox 98 05/03/21 08:00 Weight - Most Recent: 134 lb 6.4 oz I&O - Last 24 Hours: Intake & Output 05/02/21 05/03/21 05/03/21 22:59 06:59 14:59 Intake Total 150 Balance 150 Lab Results Last 24 Hours: Laboratory Results - last 24 hr 05/02/21 05/02/21 05/02/21 Range/Units 12:15 12:15 12:15 WBC 9.0 (5.0-10.0) 10^3/uL RBC 5.12 (4.6-6.2) 10^6/uL Hgb 15.7 (14.0-18.0) g/dL Hct 44.5 (40.0-54.0) % MCV 86.9 (80-100) fL MCH 30.7 (27.0-34.0) pg MCHC 35.3 H (33.0-35.0) g/dL Plt Count 205 (150-450) 10^3/uL Neut % (Auto) 74.4 (42.2-75.2) % Lymph % (Auto) 16.1 L (20.5-50.1) % [place] % (Auto) 8.9 H (2-8) % Eos % (Auto) 0.4 L (1.0-3.0) % Baso % (Auto) 0.2 (0.0-1.0) % PT 11.0 (9.0-12.0) SEC INR 1.1 (0.9-1.2) APTT 25.2 (22.0-34.0) SEC Sodium 133 L (136-145) mmol/L Potassium 3.4 L (3.5-5.1) mmol/L Chloride 94 L (98-107) mmol/L Carbon Dioxide 28 (21-32) mmol/L Anion Gap 14.4 H (7-13) mEq/L BUN 19 H (7-18) mg/dL Creatinine 1.20 (0.70-1.30) mg/dL Est Cr Clr Drug Dosing TNP Estimated GFR (MDRD) 58 BUN/Creatinine Ratio 15.8 (No establ ref range) Glucose 109 H (70-99) mg/dL Calcium 8.7 (8.5-10.1) mg/dL Total Bilirubin 1.1 H (0.2-1.0) mg/dL AST 22 (15-37) U/L ALT 25 (16-63) U/L Alkaline Phosphatase 55 (46-116) U/L Troponin I High Sens 11 (<=76) pg/mL C-Reactive Protein 0.8 (0.0-0.9) mg/dL Total Protein 7.2 (6.4-8.2) g/dL Albumin 3.2 L (3.4-5.0) g/dL Globulin 4.0 Albumin/Globulin Ratio 0.80 Urine Color (YELLOW) Urine Appearance (CLEAR) Urine pH (5.0-9.0) Ur Specific [place] (1.005-1.030) Urine Protein (NEGATIVE) Urine Glucose (UA) (NEGATIVE) Urine Ketones (NEGATIVE) Urine Occult Blood (NEGATIVE) Urine Nitrite (NEGATIVE) Urine Bilirubin (NEGATIVE) Urine Urobilinogen (0.2-1.0) mg/dL Ur Leukocyte Esterase (NEGATIVE) Urine Opiates Screen (NEGATIVE) Ur Oxycodone Screen (NEGATIVE) Urine Methadone Screen (NEGATIVE) Ur Barbiturates Screen (NEGATIVE) U Tricyclic Antidepress (NEGATIVE) Ur Phencyclidine Scrn (NEGATIVE) Ur Amphetamine Screen (NEGATIVE) U Methamphetamines Scrn (NEGATIVE) Urine MDMA Screen (NEGATIVE) U Benzodiazepines Scrn (NEGATIVE) Urine Cocaine Screen (NEGATIVE) U Marijuana (THC) Screen (NEGATIVE) Ethyl Alcohol < 3 (0) mg/dL SARS-CoV-2 RNA (RONALD) (NEGATIVE) 05/02/21 05/02/21 05/02/21 Range/Units 14:10 14:10 14:11 WBC (5.0-10.0) 10^3/uL RBC (4.6-6.2) 10^6/uL Hgb (14.0-18.0) g/dL Hct (40.0-54.0) % MCV (80-100) fL MCH (27.0-34.0) pg MCHC (33.0-35.0) g/dL Plt Count (150-450) 10^3/uL Neut % (Auto) (42.2-75.2) % Lymph % (Auto) (20.5-50.1) % [place] % (Auto) (2-8) % Eos % (Auto) (1.0-3.0) % Baso % (Auto) (0.0-1.0) % PT (9.0-12.0) SEC INR (0.9-1.2) APTT (22.0-34.0) SEC Sodium (136-145) mmol/L Potassium (3.5-5.1) mmol/L Chloride (98-107) mmol/L Carbon Dioxide (21-32) mmol/L Anion Gap (7-13) mEq/L BUN (7-18) mg/dL Creatinine (0.70-1.30) mg/dL Est Cr Clr Drug Dosing Estimated GFR (MDRD) BUN/Creatinine Ratio (No establ ref range) Glucose (70-99) mg/dL Calcium (8.5-10.1) mg/dL Total Bilirubin (0.2-1.0) mg/dL AST (15-37) U/L ALT (16-63) U/L Alkaline Phosphatase (46-116) U/L Troponin I High Sens (<=76) pg/mL C-Reactive Protein (0.0-0.9) mg/dL Total Protein (6.4-8.2) g/dL Albumin (3.4-5.0) g/dL Globulin Albumin/Globulin Ratio Urine Color Yellow (YELLOW) Urine Appearance Clear (CLEAR) Urine pH 7.0 (5.0-9.0) Ur Specific [place] 1.025 (1.005-1.030) Urine Protein Negative (NEGATIVE) Urine Glucose (UA) Negative (NEGATIVE) Urine Ketones Negative (NEGATIVE) Urine Occult Blood Negative (NEGATIVE) Urine Nitrite Negative (NEGATIVE) Urine Bilirubin Negative (NEGATIVE) Urine Urobilinogen 0.2 (0.2-1.0) mg/dL Ur Leukocyte Esterase Negative (NEGATIVE) Urine Opiates Screen Negative (NEGATIVE) Ur Oxycodone Screen Negative (NEGATIVE) Urine Methadone Screen Negative (NEGATIVE) Ur Barbiturates Screen Negative (NEGATIVE) U Tricyclic Antidepress Negative (NEGATIVE) Ur Phencyclidine Scrn Negative (NEGATIVE) Ur Amphetamine Screen Negative (NEGATIVE) U Methamphetamines Scrn Negative (NEGATIVE) Urine MDMA Screen Negative (NEGATIVE) U Benzodiazepines Scrn Negative (NEGATIVE) Urine Cocaine Screen Negative (NEGATIVE) U Marijuana (THC) Screen Negative (NEGATIVE) Ethyl Alcohol (0) mg/dL SARS-CoV-2 RNA (RONALD) Negative (NEGATIVE) Med Orders - Current: Current Medications Amlodipine Besylate (Amlodipine 5 Mg Tab) 7.5 mg PO DAILY [facility] Last Admin: 05/03/21 08:43 Dose: 7.5 mg Documented by: Aspirin (Aspirin 81 Mg Tab.Chew) 81 mg PO DAILY [facility] Last Admin: 05/03/21 08:43 Dose: 81 mg Documented by: Bisacodyl (Bisacodyl 10 Mg Supp) 10 mg RECTAL DAILY [facility] Enoxaparin Sodium (Enoxaparin 30 Mg/0.3 Ml Syringe) 30 mg SUBCUT DAILY [facility] Last Admin: 05/03/21 08:43 Dose: 30 mg Documented by: Hydralazine HCl (Hydralazine 25 Mg Tab) 25 mg PO Q8H PRN PRN Reason: Hypertension Levothyroxine Sodium (Levothyroxine 25 Mcg Tab) 12.5 mcg PO ACBREAKFAST [facility] Last Admin: 05/03/21 06:11 Dose: 12.5 mcg Documented by: Levothyroxine Sodium (Levothyroxine 50 Mcg Tab) 50 mcg PO ACBREAKFAST [facility] Last Admin: 05/03/21 06:11 Dose: 50 mcg Documented by: Magnesium Oxide (Magnesium Oxide 250 Mg Tab) 250 mg PO DAILY [facility] Last Admin: 05/03/21 08:42 Dose: 250 mg Documented by: Metoprolol Tartrate (Metoprolol Tartrate 50 Mg Tab) 50 mg PO Q12H [facility] Last Admin: 05/03/21 07:03 Dose: Not Given Documented by: Multivitamins/Minerals/Vitamin C (Multivitamin Tab) 1 tab PO DAILY [facility] Last Admin: 05/03/21 08:43 Dose: 1 tab Documented by: Non-Formulary Medication (Pembrolizumab [Keytruda]) 1 dose IV .[id number] [facility] Ondansetron HCl (Ondansetron 4 Mg Tab.Dis) 4 mg PO Q4H PRN PRN Reason: nausea, able to take PO Oxycodone HCl (Oxycodone 5 Mg Tab) 5 mg PO Q4H PRN PRN Reason: Pain (moderate 4-6) Polyethylene Glycol (Polyethylene Glycol 3350 Powder 17 Gm Packet) 17 gm PO DAILY [facility] Last Admin: 05/03/21 08:43 Dose: 17 gm Documented by: Potassium Chloride (Potassium Chloride 10 Meq Tab.Er) 40 meq PO BID [facility] Last Admin: 05/03/21 08:43 Dose: 40 meq Documented by: Senna/Docusate Sodium (Docusate Sodium/Sennosides 50-8.6 Mg Tab) 1 tab PO BID [facility] Last Admin: 05/03/21 08:43 Dose: 1 tab Documented by: Discontinued Medications Potassium Chloride (Potassium Chloride 10% 20 Meq/15 Ml Soln 15 Ml Ud Cup) 40 meq PO ONETIME ONE Stop: 05/02/21 15:01 Last Admin: 05/02/21 16:24 Dose: 40 meq Documented by: Sodium Chloride (Sodium Chloride 0.9% 10 Ml Syringe) 10 ml FLUSH ASDIRECTED PRN PRN Reason: Keep Vein Open - Exam Physical Findings Comments:: General: Frail elderly male. Awake and alert. In no distress. CVS: S1S2 appreciated. RRR lungs: clear bilaterally. no rales or wheezes pa: soft, non tender. bowel sounds present. ext: no clubbing , cyanosis or edema vu: moves all joints well. Thin limbs. low muscle mass. psych: flat affect. Stable mood. - Patient Data Lab Results Last 24 hrs: Laboratory Results - last 24 hr 05/02/21 05/02/21 05/02/21 Range/Units 12:15 12:15 12:15 WBC 9.0 (5.0-10.0) 10^3/uL RBC 5.12 (4.6-6.2) 10^6/uL Hgb 15.7 (14.0-18.0) g/dL Hct 44.5 (40.0-54.0) % MCV 86.9 (80-100) fL MCH 30.7 (27.0-34.0) pg MCHC 35.3 H (33.0-35.0) g/dL Plt Count 205 (150-450) 10^3/uL Neut % (Auto) 74.4 (42.2-75.2) % Lymph % (Auto) 16.1 L (20.5-50.1) % [place] % (Auto) 8.9 H (2-8) % Eos % (Auto) 0.4 L (1.0-3.0) % Baso % (Auto) 0.2 (0.0-1.0) % PT 11.0 (9.0-12.0) SEC INR 1.1 (0.9-1.2) APTT 25.2 (22.0-34.0) SEC Sodium 133 L (136-145) mmol/L Potassium 3.4 L (3.5-5.1) mmol/L Chloride 94 L (98-107) mmol/L Carbon Dioxide 28 (21-32) mmol/L Anion Gap 14.4 H (7-13) mEq/L BUN 19 H (7-18) mg/dL Creatinine 1.20 (0.70-1.30) mg/dL Est Cr Clr Drug Dosing TNP Estimated GFR (MDRD) 58 BUN/Creatinine Ratio 15.8 (No establ ref range) Glucose 109 H (70-99) mg/dL Calcium 8.7 (8.5-10.1) mg/dL Total Bilirubin 1.1 H (0.2-1.0) mg/dL AST 22 (15-37) U/L ALT 25 (16-63) U/L Alkaline Phosphatase 55 (46-116) U/L Troponin I High Sens 11 (<=76) pg/mL C-Reactive Protein 0.8 (0.0-0.9) mg/dL Total Protein 7.2 (6.4-8.2) g/dL Albumin 3.2 L (3.4-5.0) g/dL Globulin 4.0 Albumin/Globulin Ratio 0.80 Urine Color (YELLOW) Urine Appearance (CLEAR) Urine pH (5.0-9.0) Ur Specific [place] (1.005-1.030) Urine Protein (NEGATIVE) Urine Glucose (UA) (NEGATIVE) Urine Ketones (NEGATIVE) Urine Occult Blood (NEGATIVE) Urine Nitrite (NEGATIVE) Urine Bilirubin (NEGATIVE) Urine Urobilinogen (0.2-1.0) mg/dL Ur Leukocyte Esterase (NEGATIVE) Urine Opiates Screen (NEGATIVE) Ur Oxycodone Screen (NEGATIVE) Urine Methadone Screen (NEGATIVE) Ur Barbiturates Screen (NEGATIVE) U Tricyclic Antidepress (NEGATIVE) Ur Phencyclidine Scrn (NEGATIVE) Ur Amphetamine Screen (NEGATIVE) U Methamphetamines Scrn (NEGATIVE) Urine MDMA Screen (NEGATIVE) U Benzodiazepines Scrn (NEGATIVE) Urine Cocaine Screen (NEGATIVE) U Marijuana (THC) Screen (NEGATIVE) Ethyl Alcohol < 3 (0) mg/dL SARS-CoV-2 RNA (RONALD) (NEGATIVE) 05/02/21 05/02/21 05/02/21 Range/Units 14:10 14:10 14:11 WBC (5.0-10.0) 10^3/uL RBC (4.6-6.2) 10^6/uL Hgb (14.0-18.0) g/dL Hct (40.0-54.0) % MCV (80-100) fL MCH (27.0-34.0) pg MCHC (33.0-35.0) g/dL Plt Count (150-450) 10^3/uL Neut % (Auto) (42.2-75.2) % Lymph % (Auto) (20.5-50.1) % [place] % (Auto) (2-8) % Eos % (Auto) (1.0-3.0) % Baso % (Auto) (0.0-1.0) % PT (9.0-12.0) SEC INR (0.9-1.2) APTT (22.0-34.0) SEC Sodium (136-145) mmol/L Potassium (3.5-5.1) mmol/L Chloride (98-107) mmol/L Carbon Dioxide (21-32) mmol/L Anion Gap (7-13) mEq/L BUN (7-18) mg/dL Creatinine (0.70-1.30) mg/dL Est Cr Clr Drug Dosing Estimated GFR (MDRD) BUN/Creatinine Ratio (No establ ref range) Glucose (70-99) mg/dL Calcium (8.5-10.1) mg/dL Total Bilirubin (0.2-1.0) mg/dL AST (15-37) U/L ALT (16-63) U/L Alkaline Phosphatase (46-116) U/L Troponin I High Sens (<=76) pg/mL C-Reactive Protein (0.0-0.9) mg/dL Total Protein (6.4-8.2) g/dL Albumin (3.4-5.0) g/dL Globulin Albumin/Globulin Ratio Urine Color Yellow (YELLOW) Urine Appearance Clear (CLEAR) Urine pH 7.0 (5.0-9.0) Ur Specific [place] 1.025 (1.005-1.030) Urine Protein Negative (NEGATIVE) Urine Glucose (UA) Negative (NEGATIVE) Urine Ketones Negative (NEGATIVE) Urine Occult Blood Negative (NEGATIVE) Urine Nitrite Negative (NEGATIVE) Urine Bilirubin Negative (NEGATIVE) Urine Urobilinogen 0.2 (0.2-1.0) mg/dL Ur Leukocyte Esterase Negative (NEGATIVE) Urine Opiates Screen Negative (NEGATIVE) Ur Oxycodone Screen Negative (NEGATIVE) Urine Methadone Screen Negative (NEGATIVE) Ur Barbiturates Screen Negative (NEGATIVE) U Tricyclic Antidepress Negative (NEGATIVE) Ur Phencyclidine Scrn Negative (NEGATIVE) Ur Amphetamine Screen Negative (NEGATIVE) U Methamphetamines Scrn Negative (NEGATIVE) Urine MDMA Screen Negative (NEGATIVE) U Benzodiazepines Scrn Negative (NEGATIVE) Urine Cocaine Screen Negative (NEGATIVE) U Marijuana (THC) Screen Negative (NEGATIVE) Ethyl Alcohol (0) mg/dL SARS-CoV-2 RNA (RONALD) Negative (NEGATIVE) Result Diagrams: 05/02/21 12:15 05/02/21 12:15 Sepsis Event Note - Evaluation Sepsis Screening Result: No Definite Risk - Focused Exam Vital Signs: Vital Signs Temp Pulse Pulse Resp BP BP Pulse Ox 05/03/21 08:43 156/93 H 05/03/21 08:00 99.3 F 60 18 156/93 H 98 05/03/21 06:21 75 173/94 H 05/03/21 06:00 99.9 F 75 20 173/94 H 05/03/21 00:00 98.0 F 76 20 166/82 H 98 - Problem List & Annotations (1) FTT (failure to thrive) in adult SNOMED Code(s): 086894238 Code(s): R62.7 - ADULT FAILURE TO THRIVE Status: Acute Current Visit: Yes (2) Weakness SNOMED Code(s): 16692712 Code(s): R53.1 - WEAKNESS Status: Acute Current Visit: No (3) Dementia SNOMED Code(s): 39839694 Code(s): F03.90 - UNSPECIFIED DEMENTIA WITHOUT BEHAVIORAL DISTURBANCE Status: Chronic Current Visit: No (4) HTN (hypertension) SNOMED Code(s): 57826761 Code(s): I10 - ESSENTIAL (PRIMARY) HYPERTENSION Status: Acute Priority: Low Current Visit: No (5) Hypokalemia SNOMED Code(s): 04426290 Code(s): E87.6 - HYPOKALEMIA Status: Acute Priority: Medium Current Visit: No (6) Constipation SNOMED Code(s): 21363277 Code(s): K59.00 - CONSTIPATION, UNSPECIFIED Status: Chronic Current Visit: Yes (7) Severe protein-calorie malnutrition SNOMED Code(s): 782011695, 888262397, 860979345 Code(s): E43 - UNSPECIFIED SEVERE PROTEIN-CALORIE MALNUTRITION Status: Chronic Current Visit: Yes - Problem List Review Problem List Initiated/Reviewed/Updated: Yes - My Orders Last 24 Hours: My Active Orders 05/02/21 13:50 Patient Status [ADT] Routine 05/02/21 14:10 Patient Status [ADT] Routine Oxygen Therapy [RC] PRN Up With Assistance [RC] ASDIRECTED VTE/DVT Education [RC] Vital Signs [RC] 00,04,08,12,16,20 OT Evaluation and Treatment [CONS] Routine PT Evaluation and Treatment [CONS] Routine Ondansetron [Zofran ODT] 4 mg PO Q4H PRN oxyCODONE 5 mg PO Q4H PRN Resuscitation Status Routine 05/02/21 15:00 Enoxaparin [Lovenox] 30 mg SUBCUT DAILY 05/02/21 Dinner Regular Diet [DIET] 05/02/21 20:00 Metoprolol Tartrate [Lopressor] 50 mg PO Q12H 05/02/21 20:15 Aspirin 81 mg PO DAILY Pembrolizumab [Keytruda] 1 dose IV .[id number] amLODIPine [Norvasc] 7.5 mg PO DAILY 05/02/21 20:34 hydrALAZINE [Apresoline] 25 mg PO Q8H PRN 05/02/21 21:00 Docusate Sodium/Sennosides [Senna Plus] 1 tab PO BID Potassium Chloride [Klor-Con 10] 40 meq PO BID 05/03/21 06:00 Levothyroxine 12.5 mcg PO ACBREAKFAST Levothyroxine [Synthroid] 50 mcg PO ACBREAKFAST 05/03/21 09:00 Magnesium Oxide 250 mg PO DAILY Multivitamins [Tab-A-John] 1 tab PO DAILY polyethylene glycoL 3350 [MiraLAX] 17 gm PO DAILY 05/03/21 10:36 Dietary Supplements [RC] BIDAC 05/03/21 11:00 bisacodyL [Dulcolax] 10 mg RECTAL DAILY 05/03/21 11:49 BASIC METABOLIC PANEL,BMP [CHEM] Routine - Plan Plan:: Adult failure to thrive Admit patient to the medical floor. We will order physical and occupational therapy Case management to assist with SNF placement. Will offer nutrition supplementation Generalized weakness and debility PT and OT to eval and treat Hypertension Resume novasc Will discontinue the thiazide diuretic and start metoprolol given that he is becoming dehydrated easily while on the the medication Hypothyroidism On synthroid. Severe protein calorie malnutrition will order nutritional supplements BID Chronic constipation Continue with fiber and laxative. Encourage fluid intake Full CODE STATUS As per patient wishes DVT prophylaxis Subcu Lovenox Patient will need more than 2 midnight stays before he can be accepted into a SNF.
[2021-05-03 12:46] LABS: ANION GAP 12.9 mEq/L (7-13); CHLORIDE,CL 94 mmol/L (98-107); SODIUM,NA 129 mmol/L (136-145)
[2021-05-03] MEDS: Bisacodyl 10 MG Supp RECTAL SCH (15:28)
--- NOTE | 2021-05-04 06:16 | PCM.CONSN ---
- General Info Date of Service: 05/04/21 - Patient Data Vitals - Most Recent: Last Vital Signs Temp 99 F 05/04/21 04:00 Pulse 57 L 05/04/21 04:00 Resp 16 05/04/21 04:00 BP 138/69 05/04/21 04:00 Pulse Ox 96 05/04/21 04:00 Weight - Most Recent: 134 lb 6.4 oz I&O - Last 24 Hours: Intake & Output 05/03/21 05/03/21 05/04/21 14:59 22:59 06:59 Intake Total 480 Balance 480 Lab Results Last 24 Hours: Laboratory Results - last 24 hr 05/03/21 05/03/21 Range/Units 12:11 16:37 Sodium 129 L (136-145) mmol/L Potassium 3.9 (3.5-5.1) mmol/L Chloride 94 L (98-107) mmol/L Carbon Dioxide 26 (21-32) mmol/L Anion Gap 12.9 (7-13) mEq/L BUN 19 H (7-18) mg/dL Creatinine 1.10 (0.70-1.30) mg/dL Est Cr Clr Drug Dosing 42.34 mL/min Estimated GFR (MDRD) > 60 Glucose 141 H (70-99) mg/dL POC Glucose 124 H (70-99) mg/dL Calcium 9.2 (8.5-10.1) mg/dL Deep Results Last 24 Hours: Microbiology 05/02/21 12:15 Aerobic Blood Culture - Preliminary Blood - Arm, Left NO GROWTH AFTER 1 DAY Anaerobic Blood Culture - Preliminary NO GROWTH AFTER 1 DAY 05/02/21 12:15 Aerobic Blood Culture - Preliminary Blood - Arm, Right NO GROWTH AFTER 1 DAY Anaerobic Blood Culture - Preliminary NO GROWTH AFTER 1 DAY Med Orders - Current: Current Medications Amlodipine Besylate (Amlodipine 5 Mg Tab) 7.5 mg PO DAILY [facility] Last Admin: 05/03/21 08:43 Dose: 7.5 mg Documented by: Aspirin (Aspirin 81 Mg Tab.Chew) 81 mg PO DAILY [facility] Last Admin: 05/03/21 08:43 Dose: 81 mg Documented by: Bisacodyl (Bisacodyl 10 Mg Supp) 10 mg RECTAL DAILY [facility] Last Admin: 05/03/21 15:28 Dose: 10 mg Documented by: Enoxaparin Sodium (Enoxaparin 30 Mg/0.3 Ml Syringe) 30 mg SUBCUT DAILY [facility] Last Admin: 05/03/21 08:43 Dose: 30 mg Documented by: Hydralazine HCl (Hydralazine 25 Mg Tab) 25 mg PO Q8H PRN PRN Reason: Hypertension Levothyroxine Sodium (Levothyroxine 25 Mcg Tab) 12.5 mcg PO ACBREAKFAST [facility] Last Admin: 05/03/21 06:11 Dose: 12.5 mcg Documented by: Levothyroxine Sodium (Levothyroxine 50 Mcg Tab) 50 mcg PO ACBREAKFAST [facility] Last Admin: 05/03/21 06:11 Dose: 50 mcg Documented by: Magnesium Oxide (Magnesium Oxide 250 Mg Tab) 250 mg PO DAILY [facility] Last Admin: 05/03/21 08:42 Dose: 250 mg Documented by: Metoprolol Tartrate (Metoprolol Tartrate 50 Mg Tab) 50 mg PO Q12H [facility] Last Admin: 05/03/21 20:38 Dose: 50 mg Documented by: Multivitamins/Minerals/Vitamin C (Multivitamin Tab) 1 tab PO DAILY [facility] Last Admin: 05/03/21 08:43 Dose: 1 tab Documented by: Non-Formulary Medication (Pembrolizumab [Keytruda]) 1 dose IV .[id number] [facility] Ondansetron HCl (Ondansetron 4 Mg Tab.Dis) 4 mg PO Q4H PRN PRN Reason: nausea, able to take PO Oxycodone HCl (Oxycodone 5 Mg Tab) 5 mg PO Q4H PRN PRN Reason: Pain (moderate 4-6) Polyethylene Glycol (Polyethylene Glycol 3350 Powder 17 Gm Packet) 17 gm PO DAILY [facility] Last Admin: 05/03/21 08:43 Dose: 17 gm Documented by: Potassium Chloride (Potassium Chloride 10 Meq Tab.Er) 40 meq PO BID [facility] Last Admin: 05/03/21 20:38 Dose: 40 meq Documented by: Senna/Docusate Sodium (Docusate Sodium/Sennosides 50-8.6 Mg Tab) 1 tab PO BID [facility] Last Admin: 05/03/21 20:38 Dose: 1 tab Documented by: Discontinued Medications Potassium Chloride (Potassium Chloride 10% 20 Meq/15 Ml Soln 15 Ml Ud Cup) 40 meq PO ONETIME ONE Stop: 05/02/21 15:01 Last Admin: 05/02/21 16:24 Dose: 40 meq Documented by: Sodium Chloride (Sodium Chloride 0.9% 10 Ml Syringe) 10 ml FLUSH ASDIRECTED PRN PRN Reason: Keep Vein Open Sepsis Event Note - Evaluation Sepsis Screening Result: No Definite Risk - Focused Exam Vital Signs: Vital Signs Temp Pulse Pulse Resp BP BP BP 05/04/21 04:00 99 F 57 L 16 138/69 05/04/21 00:00 99 F 56 L 20 133/80 05/03/21 20:38 58 L 142/68 H 05/03/21 20:00 98.9 F 58 L 20 142/68 H Pulse Ox 05/04/21 04:00 96 05/04/21 00:00 96 05/03/21 20:38 05/03/21 20:00 96 Consult PN Assessment/Plan Procedures: Procedures ASSAY OF FERRITIN (11/08/20) ASSAY OF IRON (11/08/20) ASSAY OF MAGNESIUM (11/08/20) ASSAY OF SERUM POTASSIUM (06/18/20) ASSAY THYROID STIM HORMONE (10/11/20) C-REACTIVE PROTEIN (06/18/20) COMPLETE CBC W/AUTO DIFF WBC (11/08/20) COMPREHEN METABOLIC PANEL (11/08/20) CT ABD & PELV 1/> REGNS (03/04/17) DIAGNOSTIC COLONOSCOPY (11/12/17) EMERGENCY DEPT VISIT (11/26/13) FIBRIN DEGRADATION QUANT (06/18/20) IIV ADJUVANT VACCINE IM (06/18/20) IRON BINDING TEST (11/08/20) METABOLIC PANEL TOTAL CA (06/18/20) MRI BRAIN STEM W/O DYE (09/01/19) ROUTINE VENIPUNCTURE (10/11/20) URINALYSIS AUTO W/SCOPE (06/18/20) Plan: Adult failure to thrive Consult to physical therapy and Occupational Therapy, consult social work for placement. Continue nutritional supplementation. Generalized weakness and debility PT and OT to eval and treat Hypertension Resume novasc Will discontinue the thiazide diuretic as patient appears to have difficulty maintaining volume status. Hyponatremia Mild, Continue to monitor, likely secondary to hypovolemic hyponatremia. Hypothyroidism Continue synthroid. Severe protein calorie malnutrition will order nutritional supplements BID Chronic constipation Continue with fiber and laxative. Encourage fluid intake Full CODE STATUS As per patient wishes DVT prophylaxis Subcu Lovenox Patient will need more than 2 midnight stays before he can be accepted into a SNF.
[2021-05-04] MEDS: Levothyroxine 50 MCG Tab PO SCH (06:26)
[2021-05-04] MEDS: Levothyroxine 25 MCG Tab PO SCH (06:26)
--- NOTE | 2021-05-04 06:40 | PCM.PN ---
- General Info Date of Service: 05/04/21 - Review of Systems Systems Review Comment:: Patient states he feels tired this morning. He was alert and orientated x3. Patient states his bilateral legs feel weak but 1 does not fit worse than the other. He denies any urine or bowel incontinence. Patient denies any chest pain or pressures, shortness of breath. Review of systems was negative except for those listed above. - Patient Data Vitals - Most Recent: Last Vital Signs Temp 99 F 05/04/21 04:00 Pulse 57 L 05/04/21 04:00 Resp 16 05/04/21 04:00 BP 138/69 05/04/21 04:00 Pulse Ox 96 05/04/21 04:00 Weight - Most Recent: 134 lb 6.4 oz I&O - Last 24 Hours: Intake & Output 05/03/21 05/03/21 05/04/21 14:59 22:59 06:59 Intake Total 480 Balance 480 Lab Results Last 24 Hours: Laboratory Results - last 24 hr 05/03/21 05/03/21 Range/Units 12:11 16:37 Sodium 129 L (136-145) mmol/L Potassium 3.9 (3.5-5.1) mmol/L Chloride 94 L (98-107) mmol/L Carbon Dioxide 26 (21-32) mmol/L Anion Gap 12.9 (7-13) mEq/L BUN 19 H (7-18) mg/dL Creatinine 1.10 (0.70-1.30) mg/dL Est Cr Clr Drug Dosing 42.34 mL/min Estimated GFR (MDRD) > 60 Glucose 141 H (70-99) mg/dL POC Glucose 124 H (70-99) mg/dL Calcium 9.2 (8.5-10.1) mg/dL Deep Results Last 24 Hours: Microbiology 05/02/21 12:15 Aerobic Blood Culture - Preliminary Blood - Arm, Left NO GROWTH AFTER 1 DAY Anaerobic Blood Culture - Preliminary NO GROWTH AFTER 1 DAY 05/02/21 12:15 Aerobic Blood Culture - Preliminary Blood - Arm, Right NO GROWTH AFTER 1 DAY Anaerobic Blood Culture - Preliminary NO GROWTH AFTER 1 DAY Med Orders - Current: Current Medications Amlodipine Besylate (Amlodipine 5 Mg Tab) 7.5 mg PO DAILY [facility] Last Admin: 05/03/21 08:43 Dose: 7.5 mg Documented by: Aspirin (Aspirin 81 Mg Tab.Chew) 81 mg PO DAILY [facility] Last Admin: 05/03/21 08:43 Dose: 81 mg Documented by: Bisacodyl (Bisacodyl 10 Mg Supp) 10 mg RECTAL DAILY [facility] Last Admin: 05/03/21 15:28 Dose: 10 mg Documented by: Enoxaparin Sodium (Enoxaparin 30 Mg/0.3 Ml Syringe) 30 mg SUBCUT DAILY [facility] Last Admin: 05/03/21 08:43 Dose: 30 mg Documented by: Hydralazine HCl (Hydralazine 25 Mg Tab) 25 mg PO Q8H PRN PRN Reason: Hypertension Levothyroxine Sodium (Levothyroxine 25 Mcg Tab) 12.5 mcg PO ACBREAKFAST [facility] Last Admin: 05/04/21 06:26 Dose: 12.5 mcg Documented by: Levothyroxine Sodium (Levothyroxine 50 Mcg Tab) 50 mcg PO ACBREAKFAST [facility] Last Admin: 05/04/21 06:26 Dose: 50 mcg Documented by: Magnesium Oxide (Magnesium Oxide 250 Mg Tab) 250 mg PO DAILY [facility] Last Admin: 05/03/21 08:42 Dose: 250 mg Documented by: Metoprolol Tartrate (Metoprolol Tartrate 50 Mg Tab) 50 mg PO Q12H [facility] Last Admin: 05/03/21 20:38 Dose: 50 mg Documented by: Multivitamins/Minerals/Vitamin C (Multivitamin Tab) 1 tab PO DAILY [facility] Last Admin: 05/03/21 08:43 Dose: 1 tab Documented by: Non-Formulary Medication (Pembrolizumab [Keytruda]) 1 dose IV .[id number] [facility] Ondansetron HCl (Ondansetron 4 Mg Tab.Dis) 4 mg PO Q4H PRN PRN Reason: nausea, able to take PO Oxycodone HCl (Oxycodone 5 Mg Tab) 5 mg PO Q4H PRN PRN Reason: Pain (moderate 4-6) Polyethylene Glycol (Polyethylene Glycol 3350 Powder 17 Gm Packet) 17 gm PO DAILY [facility] Last Admin: 05/03/21 08:43 Dose: 17 gm Documented by: Potassium Chloride (Potassium Chloride 10 Meq Tab.Er) 40 meq PO BID [facility] Last Admin: 05/03/21 20:38 Dose: 40 meq Documented by: Senna/Docusate Sodium (Docusate Sodium/Sennosides 50-8.6 Mg Tab) 1 tab PO BID [facility] Last Admin: 05/03/21 20:38 Dose: 1 tab Documented by: Discontinued Medications Potassium Chloride (Potassium Chloride 10% 20 Meq/15 Ml Soln 15 Ml Ud Cup) 40 meq PO ONETIME ONE Stop: 05/02/21 15:01 Last Admin: 05/02/21 16:24 Dose: 40 meq Documented by: Sodium Chloride (Sodium Chloride 0.9% 10 Ml Syringe) 10 ml FLUSH ASDIRECTED PRN PRN Reason: Keep Vein Open - Exam General: Alert, Oriented HEENT: Pupils Equal Neck: Supple, Trachea Midline Lungs: Clear to Auscultation, Normal Respiratory Effort Cardiovascular: Regular Rate, Regular Rhythm GI/Abdominal Exam: Normal Bowel Sounds, Soft Back Exam: Normal Inspection, Full Range of Motion Extremities: Normal Inspection, Normal Range of Motion Skin: Warm, Dry Neurological: No New Focal Deficit, Normal Speech, Normal Tone Psy/Mental Status: Alert, Normal Affect Physical Findings Comments:: Noted bitemporal muscle wasting, overall appears alert but cachectic. - Patient Data Lab Results Last 24 hrs: Laboratory Results - last 24 hr 05/03/21 05/03/21 Range/Units 12:11 16:37 Sodium 129 L (136-145) mmol/L Potassium 3.9 (3.5-5.1) mmol/L Chloride 94 L (98-107) mmol/L Carbon Dioxide 26 (21-32) mmol/L Anion Gap 12.9 (7-13) mEq/L BUN 19 H (7-18) mg/dL Creatinine 1.10 (0.70-1.30) mg/dL Est Cr Clr Drug Dosing 42.34 mL/min Estimated GFR (MDRD) > 60 Glucose 141 H (70-99) mg/dL POC Glucose 124 H (70-99) mg/dL Calcium 9.2 (8.5-10.1) mg/dL Result Diagrams: 05/02/21 12:15 05/03/21 12:11 Deep Results Last 24 hrs: Microbiology 05/02/21 12:15 Aerobic Blood Culture - Preliminary Blood - Arm, Left NO GROWTH AFTER 1 DAY Anaerobic Blood Culture - Preliminary NO GROWTH AFTER 1 DAY 05/02/21 12:15 Aerobic Blood Culture - Preliminary Blood - Arm, Right NO GROWTH AFTER 1 DAY Anaerobic Blood Culture - Preliminary NO GROWTH AFTER 1 DAY Sepsis Event Note - Evaluation Sepsis Screening Result: No Definite Risk - Focused Exam Vital Signs: Vital Signs Temp Pulse Pulse Resp BP BP BP 05/04/21 04:00 99 F 57 L 16 138/69 05/04/21 00:00 99 F 56 L 20 133/80 05/03/21 20:38 58 L 142/68 H 05/03/21 20:00 98.9 F 58 L 20 142/68 H Pulse Ox 05/04/21 04:00 96 05/04/21 00:00 96 05/03/21 20:38 05/03/21 20:00 96 - Problem List & Annotations (1) FTT (failure to thrive) in adult SNOMED Code(s): 760726599 Code(s): R62.7 - ADULT FAILURE TO THRIVE Status: Acute Current Visit: Yes (2) Constipation SNOMED Code(s): 41177959 Code(s): K59.00 - CONSTIPATION, UNSPECIFIED Status: Chronic Current Visit: Yes (3) Severe protein-calorie malnutrition SNOMED Code(s): 755860795, 579020204, 002416713 Code(s): E43 - UNSPECIFIED SEVERE PROTEIN-CALORIE MALNUTRITION Status: Chronic Current Visit: Yes (4) Acute metabolic encephalopathy SNOMED Code(s): 27541812, 590922388 Code(s): G93.41 - METABOLIC ENCEPHALOPATHY Status: Acute Current Visit: No (5) HTN (hypertension) SNOMED Code(s): 50323213 Code(s): I10 - ESSENTIAL (PRIMARY) HYPERTENSION Status: Acute Priority: Low Current Visit: No - Problem List Review Problem List Initiated/Reviewed/Updated: Yes - Plan Plan:: Adult failure to thrive/Severe protein calorie malnutrition Consult to physical therapy and Occupational Therapy, consult social work for placement. Had prolonged discussion with patient's daughter today and stated that they would be willing to discuss placement versus him discharging to home with her pending his progress. Continue nutritional supplementation. Generalized weakness and debility PT and OT to eval and treat Hypertension Resume novasc Will discontinue the thiazide diuretic as patient appears to have difficulty maintaining volume status. Hyponatremia Mild, Continue to monitor, likely secondary to hypovolemic hyponatremia. Thiazide diuretic could be contributing - discontinued. Hypothyroidism Continue Synthroid. Chronic constipation Continue with fiber and laxative. Encourage fluid intake Full CODE STATUS As per patient wishes DVT prophylaxis Subcu Lovenox
[2021-05-04] MEDS ORDERED: Sodium Chloride 0.9% 500 ML IV ONE (09:07)
[2021-05-04] MEDS: Potassium Chloride 10 MEQ Tab.ER PO SCH ×2 (09:52→20:32)
[2021-05-04] MEDS: Aspirin 81 MG Tab.Chew PO SCH (09:53)
[2021-05-04] MEDS: Multivitamin Tab PO SCH (09:53)
[2021-05-04] MEDS: amLODIPine 5 MG Tab PO SCH (09:53)
[2021-05-04] MEDS: Polyethylene Glycol 3350 Powder 17 GM Packet PO SCH (09:54)
[2021-05-04] MEDS: Bisacodyl 10 MG Supp RECTAL SCH (09:54)
[2021-05-04] MEDS: Enoxaparin 30 MG/0.3 ML Syringe SUBCUT SCH (09:54)
[2021-05-04] MEDS: Metoprolol Tartrate 50 MG Tab PO SCH (12:14)
[2021-05-04] MEDS: Thiamine 100 MG Tab PO SCH (20:32)
--- NOTE | 2021-05-05 07:06 | PCM.PN ---
- General Info Date of Service: 05/05/21 Admission Dx/Problem (Free Text): Generalized weakness Subjective Update: Patient is overall more alert and interactive this a.m. Alert and orientated x3. States that he feels a little weak bilateral legs but otherwise feels well. Denies any headaches, vision changes, shortness of breath, chest pains patient is calm abdominal pain. Overall states he is close to baseline but is still fairly weak. Had a prolonged discussion about possible placement options with patient was agreeable to. Functional Status: Reports: Pain Controlled - Review of Systems General: Reports: No Symptoms HEENT: Reports: No Symptoms Pulmonary: Reports: No Symptoms Cardiovascular: Reports: No Symptoms Gastrointestinal: Reports: No Symptoms Genitourinary: Reports: No Symptoms Musculoskeletal: Reports: No Symptoms Skin: Reports: No Symptoms Neurological: Reports: No Symptoms Psychiatric: Reports: No Symptoms - Patient Data Vitals - Most Recent: Last Vital Signs Temp 98.6 F 05/05/21 00:00 Pulse 60 05/05/21 00:00 Resp 16 05/05/21 00:00 BP 139/72 05/05/21 00:00 Pulse Ox 97 05/05/21 00:00 Weight - Most Recent: 134 lb 6.4 oz I&O - Last 24 Hours: Intake & Output 05/04/21 05/05/21 05/05/21 22:59 06:59 14:59 Intake Total 500 Balance 500 Lab Results Last 24 Hours: Laboratory Results - last 24 hr 05/04/21 Range/Units 14:28 Sodium 132 L (136-145) mmol/L Potassium 4.0 (3.5-5.1) mmol/L Deep Results Last 24 Hours: Microbiology 05/02/21 12:15 Aerobic Blood Culture - Preliminary Blood - Arm, Left NO GROWTH AFTER 2 DAYS Anaerobic Blood Culture - Preliminary NO GROWTH AFTER 2 DAYS 05/02/21 12:15 Aerobic Blood Culture - Preliminary Blood - Arm, Right NO GROWTH AFTER 2 DAYS Anaerobic Blood Culture - Preliminary NO GROWTH AFTER 2 DAYS Med Orders - Current: Current Medications Amlodipine Besylate (Amlodipine 5 Mg Tab) 7.5 mg PO DAILY [facility] Last Admin: 05/04/21 09:53 Dose: 7.5 mg Documented by: Aspirin (Aspirin 81 Mg Tab.Chew) 81 mg PO DAILY [facility] Last Admin: 05/04/21 09:53 Dose: 81 mg Documented by: Bisacodyl (Bisacodyl 10 Mg Supp) 10 mg RECTAL DAILY [facility] Last Admin: 05/04/21 09:54 Dose: Not Given Documented by: Enoxaparin Sodium (Enoxaparin 30 Mg/0.3 Ml Syringe) 30 mg SUBCUT DAILY [facility] Last Admin: 05/04/21 09:54 Dose: 30 mg Documented by: Hydralazine HCl (Hydralazine 25 Mg Tab) 25 mg PO Q8H PRN PRN Reason: Hypertension Levothyroxine Sodium (Levothyroxine 25 Mcg Tab) 12.5 mcg PO ACBREAKFAST [facility] Last Admin: 05/04/21 06:26 Dose: 12.5 mcg Documented by: Levothyroxine Sodium (Levothyroxine 50 Mcg Tab) 50 mcg PO ACBREAKFAST [facility] Last Admin: 05/04/21 06:26 Dose: 50 mcg Documented by: Magnesium Oxide (Magnesium Oxide 250 Mg Tab) 250 mg PO DAILY [facility] Last Admin: 05/04/21 09:54 Dose: 250 mg Documented by: Multivitamins/Minerals/Vitamin C (Multivitamin Tab) 1 tab PO DAILY [facility] Last Admin: 05/04/21 09:53 Dose: 1 tab Documented by: Ondansetron HCl (Ondansetron 4 Mg Tab.Dis) 4 mg PO Q4H PRN PRN Reason: nausea, able to take PO Oxycodone HCl (Oxycodone 5 Mg Tab) 5 mg PO Q4H PRN PRN Reason: Pain (moderate 4-6) Polyethylene Glycol (Polyethylene Glycol 3350 Powder 17 Gm Packet) 17 gm PO DAILY [facility] Last Admin: 05/04/21 09:54 Dose: 17 gm Documented by: Potassium Chloride (Potassium Chloride 10 Meq Tab.Er) 40 meq PO BID [facility] Last Admin: 05/04/21 20:32 Dose: 40 meq Documented by: Senna/Docusate Sodium (Docusate Sodium/Sennosides 50-8.6 Mg Tab) 1 tab PO BID [facility] Last Admin: 05/04/21 20:32 Dose: 1 tab Documented by: Thiamine HCl (Thiamine 100 Mg Tab) 100 mg PO BEDTIME [facility] Last Admin: 05/04/21 20:32 Dose: 100 mg Documented by: Discontinued Medications Sodium Chloride (Normal Saline) 500 mls @ 50 mls/hr IV ONETIME ONE Stop: 05/04/21 19:06 Last Admin: 05/04/21 09:55 Dose: 50 mls/hr Documented by: Metoprolol Tartrate (Metoprolol Tartrate 50 Mg Tab) 50 mg PO Q12H [facility] Last Admin: 05/04/21 12:14 Dose: Not Given Documented by: Non-Formulary Medication (Pembrolizumab [Keytruda]) 1 dose IV .[id number] [facility] Potassium Chloride (Potassium Chloride 10% 20 Meq/15 Ml Soln 15 Ml Ud Cup) 40 meq PO ONETIME ONE Stop: 05/02/21 15:01 Last Admin: 05/02/21 16:24 Dose: 40 meq Documented by: Sodium Chloride (Sodium Chloride 0.9% 10 Ml Syringe) 10 ml FLUSH ASDIRECTED PRN PRN Reason: Keep Vein Open - Exam General: Alert, Oriented HEENT: Pupils Equal, Pupils Reactive, EOMI, Mucous Membr. Moist/[place] Neck: Supple Lungs: Clear to Auscultation, Normal Respiratory Effort Cardiovascular: Regular Rate, Regular Rhythm GI/Abdominal Exam: Normal Bowel Sounds, Soft, Non-Tender, No Organomegaly, No Distention, No Abnormal Bruit, No Mass, Pelvis Stable Extremities: Normal Inspection, Normal Range of Motion, Non-Tender, No Pedal Edema, Normal Capillary Refill Skin: Warm, Dry, Intact Neurological: No New Focal Deficit Psy/Mental Status: Alert, Normal Affect, Normal Mood - Patient Data Lab Results Last 24 hrs: Laboratory Results - last 24 hr 05/04/21 Range/Units 14:28 Sodium 132 L (136-145) mmol/L Potassium 4.0 (3.5-5.1) mmol/L Result Diagrams: 05/02/21 12:15 05/04/21 14:28 Deep Results Last 24 hrs: Microbiology 05/02/21 12:15 Aerobic Blood Culture - Preliminary Blood - Arm, Left NO GROWTH AFTER 2 DAYS Anaerobic Blood Culture - Preliminary NO GROWTH AFTER 2 DAYS 05/02/21 12:15 Aerobic Blood Culture - Preliminary Blood - Arm, Right NO GROWTH AFTER 2 DAYS Anaerobic Blood Culture - Preliminary NO GROWTH AFTER 2 DAYS Sepsis Event Note - Evaluation Sepsis Screening Result: No Definite Risk - Focused Exam Vital Signs: Vital Signs Temp Pulse Resp BP BP Pulse Ox 05/05/21 00:00 98.6 F 60 16 139/72 97 05/04/21 20:00 99.1 F 56 L 18 131/65 98 - Problem List & Annotations (1) FTT (failure to thrive) in adult SNOMED Code(s): 873643110 Code(s): R62.7 - ADULT FAILURE TO THRIVE Status: Acute Current Visit: Yes (2) Constipation SNOMED Code(s): 19838205 Code(s): K59.00 - CONSTIPATION, UNSPECIFIED Status: Chronic Current Visit: Yes (3) Severe protein-calorie malnutrition SNOMED Code(s): 394243316, 664773427, 467856017 Code(s): E43 - UNSPECIFIED SEVERE PROTEIN-CALORIE MALNUTRITION Status: Chronic Current Visit: Yes (4) Acute metabolic encephalopathy SNOMED Code(s): 16740496, 422824028 Code(s): G93.41 - METABOLIC ENCEPHALOPATHY Status: Acute Current Visit: No (5) HTN (hypertension) SNOMED Code(s): 76609044 Code(s): I10 - ESSENTIAL (PRIMARY) HYPERTENSION Status: Acute Priority: Low Current Visit: No - Problem List Review Problem List Initiated/Reviewed/Updated: Yes - My Orders Last 24 Hours: My Active Orders 05/04/21 21:00 Thiamine [Vitamin B-1] 100 mg PO BEDTIME - Plan Plan:: Adult failure to thrive/Severe protein calorie malnutrition Consult to physical therapy and Occupational Therapy, consult social work for placement. Had prolonged discussion with patient and his daughter today regarding possible placement options. Patient is agreeable for placement. Appreciate social worker aide input. Continue nutritional supplementation. Generalized weakness and debility PT and OT to eval and treat Hypertension Resume novasc Will discontinue the thiazide diuretic as patient appears to have difficulty maintaining volume status. Hyponatremia Mild, improved with fluids, likely secondary to hypovolemic hyponatremia, sodium 132 today, no need for further monitoring given patient's increased intake Thiazide diuretic could be contributing - discontinued. Hypothyroidism Continue Synthroid. Chronic constipation Continue with fiber and laxative. Encourage fluid intake Full CODE STATUS As per patient wishes DVT prophylaxis Subcu Lovenox Patient is now medically stable for discharge, awaiting placement
[2021-05-05] MEDS: Levothyroxine 25 MCG Tab PO SCH (08:33)
[2021-05-05] MEDS: Levothyroxine 50 MCG Tab PO SCH (08:34)
[2021-05-05] MEDS: amLODIPine 5 MG Tab PO SCH (08:34)
[2021-05-05] MEDS: Aspirin 81 MG Tab.Chew PO SCH (08:38)
[2021-05-05] MEDS: Multivitamin Tab PO SCH (08:38)
[2021-05-05] MEDS: Enoxaparin 30 MG/0.3 ML Syringe SUBCUT SCH (08:38)
[2021-05-05] MEDS: Potassium Chloride 10 MEQ Tab.ER PO SCH ×2 (08:38→20:47)
[2021-05-05] MEDS: Bisacodyl 10 MG Supp RECTAL SCH (08:39)
[2021-05-05] MEDS: Polyethylene Glycol 3350 Powder 17 GM Packet PO SCH (08:39)
[2021-05-05] MEDS: Thiamine 100 MG Tab PO SCH (20:47)
[2021-05-05] MEDS: PSYLLIUM HUSK PO SCH (20:48)
[2021-05-05] MEDS ORDERED: Psyllium Husk Powder Sugar Free 5.85 GM Packet PO SCH (21:00)
[2021-05-06] MEDS: Levothyroxine 25 MCG Tab PO SCH (06:16)
[2021-05-06] MEDS: Levothyroxine 50 MCG Tab PO SCH (06:16)
--- NOTE | 2021-05-06 06:17 | PCM.PN ---
- General Info Date of Service: 05/06/21 Admission Dx/Problem (Free Text): Generalized weakness Subjective Update: Patient overall feels well this a.m. Patient is again alert and orientated x3. Patient denies any specific complaints beyond generalized weakness. He denies any chest pains or pressure, shortness of breath, focal weakness or numbness. Patient is agreeable for nursing facility placement or home with daughter. - Review of Systems General: Reports: No Symptoms HEENT: Reports: No Symptoms Pulmonary: Reports: No Symptoms Cardiovascular: Reports: No Symptoms Gastrointestinal: Reports: No Symptoms Genitourinary: Reports: No Symptoms Musculoskeletal: Reports: No Symptoms Skin: Reports: No Symptoms Neurological: Reports: No Symptoms Psychiatric: Reports: No Symptoms - Patient Data Vitals - Most Recent: Last Vital Signs Temp 99.2 F 05/06/21 04:00 Pulse 64 05/05/21 12:00 Resp 16 05/06/21 04:00 BP 154/80 H 05/06/21 04:00 Pulse Ox 98 05/06/21 04:00 Weight - Most Recent: 134 lb 6.4 oz I&O - Last 24 Hours: Intake & Output 05/05/21 05/05/21 05/06/21 14:59 22:59 06:59 Intake Total 250 240 100 Balance 250 240 100 Deep Results Last 24 Hours: Microbiology 05/02/21 12:15 Aerobic Blood Culture - Preliminary Blood - Arm, Left NO GROWTH AFTER 3 DAYS Anaerobic Blood Culture - Preliminary NO GROWTH AFTER 3 DAYS 05/02/21 12:15 Aerobic Blood Culture - Preliminary Blood - Arm, Right NO GROWTH AFTER 3 DAYS Anaerobic Blood Culture - Preliminary NO GROWTH AFTER 3 DAYS Med Orders - Current: Current Medications Amlodipine Besylate (Amlodipine 5 Mg Tab) 7.5 mg PO DAILY [facility] Last Admin: 05/05/21 08:34 Dose: 7.5 mg Documented by: Aspirin (Aspirin 81 Mg Tab.Chew) 81 mg PO DAILY [facility] Last Admin: 05/05/21 08:38 Dose: 81 mg Documented by: Bisacodyl (Bisacodyl 10 Mg Supp) 10 mg RECTAL DAILY [facility] Last Admin: 05/05/21 08:39 Dose: Not Given Documented by: Enoxaparin Sodium (Enoxaparin 30 Mg/0.3 Ml Syringe) 30 mg SUBCUT DAILY [facility] Last Admin: 05/05/21 08:38 Dose: 30 mg Documented by: Hydralazine HCl (Hydralazine 25 Mg Tab) 25 mg PO Q8H PRN PRN Reason: Hypertension Levothyroxine Sodium (Levothyroxine 25 Mcg Tab) 12.5 mcg PO ACBREAKFAST [facility] Last Admin: 05/06/21 06:16 Dose: 12.5 mcg Documented by: Levothyroxine Sodium (Levothyroxine 50 Mcg Tab) 50 mcg PO ACBREAKFAST [facility] Last Admin: 05/06/21 06:16 Dose: 50 mcg Documented by: Magnesium Oxide (Magnesium Oxide 250 Mg Tab) 250 mg PO DAILY [facility] Last Admin: 05/05/21 08:38 Dose: 250 mg Documented by: Multivitamins/Minerals/Vitamin C (Multivitamin Tab) 1 tab PO DAILY [facility] Last Admin: 05/05/21 08:38 Dose: 1 tab Documented by: Ondansetron HCl (Ondansetron 4 Mg Tab.Dis) 4 mg PO Q4H PRN PRN Reason: nausea, able to take PO Oxycodone HCl (Oxycodone 5 Mg Tab) 5 mg PO Q4H PRN PRN Reason: Pain (moderate 4-6) Psyllium Husk ( Metamucil) Powder Own Med 0 each PO BID [facility] Last Admin: 05/05/21 20:48 Dose: 1 each Documented by: Polyethylene Glycol (Polyethylene Glycol 3350 Powder 17 Gm Packet) 17 gm PO DAILY [facility] Last Admin: 05/05/21 08:39 Dose: Not Given Documented by: Potassium Chloride (Potassium Chloride 10 Meq Tab.Er) 40 meq PO BID [facility] Last Admin: 05/05/21 20:47 Dose: 40 meq Documented by: Senna/Docusate Sodium (Docusate Sodium/Sennosides 50-8.6 Mg Tab) 1 tab PO BID [facility] Last Admin: 05/05/21 20:46 Dose: 1 tab Documented by: Thiamine HCl (Thiamine 100 Mg Tab) 100 mg PO BEDTIME [facility] Last Admin: 05/05/21 20:47 Dose: 100 mg Documented by: Discontinued Medications Sodium Chloride (Normal Saline) 500 mls @ 50 mls/hr IV ONETIME ONE Stop: 05/04/21 19:06 Last Admin: 05/04/21 09:55 Dose: 50 mls/hr Documented by: Metoprolol Tartrate (Metoprolol Tartrate 50 Mg Tab) 50 mg PO Q12H [facility] Last Admin: 05/04/21 12:14 Dose: Not Given Documented by: Non-Formulary Medication (Pembrolizumab [Keytruda]) 1 dose IV .[id number] [facility] Potassium Chloride (Potassium Chloride 10% 20 Meq/15 Ml Soln 15 Ml Ud Cup) 40 meq PO ONETIME ONE Stop: 05/02/21 15:01 Last Admin: 05/02/21 16:24 Dose: 40 meq Documented by: Psyllium Husk (Psyllium Husk Powder Sugar Free 5.85 Gm Packet) 1 pkt PO BID [facility] Sodium Chloride (Sodium Chloride 0.9% 10 Ml Syringe) 10 ml FLUSH ASDIRECTED PRN PRN Reason: Keep Vein Open - Exam General: Alert, Oriented HEENT: Pupils Equal, Pupils Reactive, Other (temporal muscle wasting ) Neck: Supple Lungs: Clear to Auscultation, Normal Respiratory Effort Cardiovascular: Regular Rate, Regular Rhythm GI/Abdominal Exam: Normal Bowel Sounds, Soft Back Exam: Normal Inspection Extremities: Normal Inspection Peripheral Pulses: 2+: Radial (L), Radial (R) Skin: Warm, Dry Neurological: No New Focal Deficit Psy/Mental Status: Alert, Normal Affect, Normal Mood - Patient Data Result Diagrams: 05/02/21 12:15 05/04/21 14:28 Deep Results Last 24 hrs: Microbiology 05/02/21 12:15 Aerobic Blood Culture - Preliminary Blood - Arm, Left NO GROWTH AFTER 3 DAYS Anaerobic Blood Culture - Preliminary NO GROWTH AFTER 3 DAYS 05/02/21 12:15 Aerobic Blood Culture - Preliminary Blood - Arm, Right NO GROWTH AFTER 3 DAYS Anaerobic Blood Culture - Preliminary NO GROWTH AFTER 3 DAYS Sepsis Event Note - Evaluation Sepsis Screening Result: No Definite Risk - Focused Exam Vital Signs: Vital Signs Temp Resp BP Pulse Ox 05/06/21 04:00 99.2 F 16 154/80 H 98 05/05/21 20:00 97.8 F 16 130/59 L 99 - Problem List & Annotations (1) FTT (failure to thrive) in adult SNOMED Code(s): 172337697 Code(s): R62.7 - ADULT FAILURE TO THRIVE Status: Acute Current Visit: Yes (2) Constipation SNOMED Code(s): 58929023 Code(s): K59.00 - CONSTIPATION, UNSPECIFIED Status: Chronic Current Visit: Yes (3) Severe protein-calorie malnutrition SNOMED Code(s): 610362523, 699712318, 709836750 Code(s): E43 - UNSPECIFIED SEVERE PROTEIN-CALORIE MALNUTRITION Status: Chronic Current Visit: Yes (4) Acute metabolic encephalopathy SNOMED Code(s): 23506475, 860929797 Code(s): G93.41 - METABOLIC ENCEPHALOPATHY Status: Acute Current Visit: No (5) HTN (hypertension) SNOMED Code(s): 20852731 Code(s): I10 - ESSENTIAL (PRIMARY) HYPERTENSION Status: Acute Priority: Low Current Visit: No - Problem List Review Problem List Initiated/Reviewed/Updated: Yes - My Orders Last 24 Hours: My Active Orders 05/05/21 21:00 Patient's Own Medication [Ptom] 0 each PO BID - Plan Plan:: Adult failure to thrive/Severe protein calorie malnutrition Consult to physical therapy and Occupational Therapy, consult social work for placement. Patient is agreeable for placement. Appreciate drug abuse social worker input. We will continue having ongoing discussions with daughter about sources for placement. Continue nutritional supplementation. Generalized weakness and debility PT and OT to eval and treat Hypertension continue novasc 7.5 - may need to increase at discharge pending BP discontinued thiazide diuretic as patient appears to have difficulty maintaining volume status. Hyponatremia Mild, improved with fluids, likely secondary to hypovolemic hyponatremia, sodium 132 05/05/21 no need for further monitoring given patient's increased intake Thiazide diuretic could have been contributing - discontinued Hypothyroidism Continue Synthroid Chronic constipation Continue with fiber and laxative Encourage fluid intake Full CODE STATUS As per patient wishes DVT prophylaxis Subcu Lovenox Patient is now medically stable for discharge, awaiting placement
[2021-05-06] MEDS: PSYLLIUM HUSK PO SCH ×2 (09:24→21:18)
[2021-05-06] MEDS: Multivitamin Tab PO SCH (09:25)
[2021-05-06] MEDS: Aspirin 81 MG Tab.Chew PO SCH (09:26)
[2021-05-06] MEDS: amLODIPine 5 MG Tab PO SCH (09:27)
[2021-05-06] MEDS: Potassium Chloride 10 MEQ Tab.ER PO SCH ×2 (09:30→21:18)
[2021-05-06] MEDS: Polyethylene Glycol 3350 Powder 17 GM Packet PO SCH (09:31)
[2021-05-06] MEDS: Enoxaparin 30 MG/0.3 ML Syringe SUBCUT SCH (09:31)
[2021-05-06] MEDS: Bisacodyl 10 MG Supp RECTAL SCH (09:32)
[2021-05-06] MEDS: Thiamine 100 MG Tab PO SCH (21:18)
--- NOTE | 2021-05-07 05:55 | PCM.PN ---
- General Info Date of Service: 05/07/21 Admission Dx/Problem (Free Text): Generalized weakness Subjective Update: Patient feels stable over the last several days. He denies any specific compl aints today. Patient states his appetite is still poor but it is slowly improving. He states strength is also improving. He overall denies any chest pains or pressures, shortness of breath, ginger pain, nausea or vomiting. States that he is weakness is more global and has no focal deficits. - Review of Systems General: Reports: No Symptoms HEENT: Reports: No Symptoms Pulmonary: Reports: No Symptoms Cardiovascular: Reports: No Symptoms Gastrointestinal: Reports: No Symptoms Genitourinary: Reports: No Symptoms Musculoskeletal: Reports: No Symptoms Skin: Reports: No Symptoms Neurological: Reports: No Symptoms Psychiatric: Reports: No Symptoms - Patient Data Vitals - Most Recent: Last Vital Signs Temp 99.1 F 05/07/21 02:18 Pulse 71 05/07/21 02:18 Resp 20 05/07/21 02:18 BP 153/80 H 05/07/21 02:18 Pulse Ox 97 05/07/21 02:18 Weight - Most Recent: 134 lb 6.4 oz I&O - Last 24 Hours: Intake & Output 05/06/21 05/06/21 05/07/21 14:59 22:59 06:59 Intake Total 720 100 Balance 720 100 Deep Results Last 24 Hours: Microbiology 05/02/21 12:15 Aerobic Blood Culture - Preliminary Blood - Arm, Left NO GROWTH AFTER 4 DAYS Anaerobic Blood Culture - Preliminary NO GROWTH AFTER 4 DAYS 05/02/21 12:15 Aerobic Blood Culture - Preliminary Blood - Arm, Right NO GROWTH AFTER 4 DAYS Anaerobic Blood Culture - Preliminary NO GROWTH AFTER 4 DAYS Med Orders - Current: Current Medications Amlodipine Besylate (Amlodipine 5 Mg Tab) 7.5 mg PO DAILY [facility] Last Admin: 05/06/21 09:27 Dose: 7.5 mg Documented by: Aspirin (Aspirin 81 Mg Tab.Chew) 81 mg PO DAILY [facility] Last Admin: 05/06/21 09:26 Dose: 81 mg Documented by: Bisacodyl (Bisacodyl 10 Mg Supp) 10 mg RECTAL DAILY [facility] Last Admin: 05/06/21 09:32 Dose: Not Given Documented by: Enoxaparin Sodium (Enoxaparin 30 Mg/0.3 Ml Syringe) 30 mg SUBCUT DAILY [facility] Last Admin: 05/06/21 09:31 Dose: 30 mg Documented by: Levothyroxine Sodium (Levothyroxine 25 Mcg Tab) 12.5 mcg PO ACBREAKFAST [facility] Last Admin: 05/06/21 06:16 Dose: 12.5 mcg Documented by: Levothyroxine Sodium (Levothyroxine 50 Mcg Tab) 50 mcg PO ACBREAKFAST [facility] Last Admin: 05/06/21 06:16 Dose: 50 mcg Documented by: Magnesium Oxide (Magnesium Oxide 250 Mg Tab) 250 mg PO DAILY [facility] Last Admin: 05/06/21 09:25 Dose: 250 mg Documented by: Multivitamins/Minerals/Vitamin C (Multivitamin Tab) 1 tab PO DAILY [facility] Last Admin: 05/06/21 09:25 Dose: 1 tab Documented by: Ondansetron HCl (Ondansetron 4 Mg Tab.Dis) 4 mg PO Q4H PRN PRN Reason: nausea, able to take PO Psyllium Husk ( Metamucil) Powder Own Med 0 each PO BID [facility] Last Admin: 05/06/21 21:18 Dose: 1 each Documented by: Polyethylene Glycol (Polyethylene Glycol 3350 Powder 17 Gm Packet) 17 gm PO DAILY [facility] Last Admin: 05/06/21 09:31 Dose: 17 gm Documented by: Potassium Chloride (Potassium Chloride 10 Meq Tab.Er) 40 meq PO BID [facility] Last Admin: 05/06/21 21:18 Dose: 40 meq Documented by: Senna/Docusate Sodium (Docusate Sodium/Sennosides 50-8.6 Mg Tab) 1 tab PO BID [facility] Last Admin: 05/06/21 21:18 Dose: 1 tab Documented by: Thiamine HCl (Thiamine 100 Mg Tab) 100 mg PO BEDTIME [facility] Last Admin: 05/06/21 21:18 Dose: 100 mg Documented by: Discontinued Medications Hydralazine HCl (Hydralazine 25 Mg Tab) 25 mg PO Q8H PRN PRN Reason: Hypertension Sodium Chloride (Normal Saline) 500 mls @ 50 mls/hr IV ONETIME ONE Stop: 05/04/21 19:06 Last Admin: 05/04/21 09:55 Dose: 50 mls/hr Documented by: Metoprolol Tartrate (Metoprolol Tartrate 50 Mg Tab) 50 mg PO Q12H [facility] Last Admin: 05/04/21 12:14 Dose: Not Given Documented by: Non-Formulary Medication (Pembrolizumab [Keytruda]) 1 dose IV .[id number] KAYA Oxycodone HCl (Oxycodone 5 Mg Tab) 5 mg PO Q4H PRN PRN Reason: Pain (moderate 4-6) Potassium Chloride (Potassium Chloride 10% 20 Meq/15 Ml Soln 15 Ml Ud Cup) 40 meq PO ONETIME ONE Stop: 05/02/21 15:01 Last Admin: 05/02/21 16:24 Dose: 40 meq Documented by: Psyllium Husk (Psyllium Husk Powder Sugar Free 5.85 Gm Packet) 1 pkt PO BID KAYA Sodium Chloride (Sodium Chloride 0.9% 10 Ml Syringe) 10 ml FLUSH ASDIRECTED PRN PRN Reason: Keep Vein Open - Exam General: Alert, Oriented HEENT: Pupils Equal, Pupils Reactive, EOMI, Mucous Membr. Moist/[place] Neck: Supple Lungs: Clear to Auscultation, Normal Respiratory Effort Cardiovascular: Regular Rate, Regular Rhythm GI/Abdominal Exam: Normal Bowel Sounds, Soft, Non-Tender Back Exam: Normal Inspection, Full Range of Motion Extremities: Normal Inspection, Normal Range of Motion, Non-Tender, No Pedal Edema, Normal Capillary Refill Skin: Warm, Dry, Intact Wound/Incisions: Healing Well Neurological: No New Focal Deficit Psy/Mental Status: Alert, Normal Affect, Normal Mood - Patient Data Result Diagrams: 05/02/21 12:15 05/04/21 14:28 Deep Results Last 24 hrs: Microbiology 05/02/21 12:15 Aerobic Blood Culture - Preliminary Blood - Arm, Left NO GROWTH AFTER 4 DAYS Anaerobic Blood Culture - Preliminary NO GROWTH AFTER 4 DAYS 05/02/21 12:15 Aerobic Blood Culture - Preliminary Blood - Arm, Right NO GROWTH AFTER 4 DAYS Anaerobic Blood Culture - Preliminary NO GROWTH AFTER 4 DAYS Sepsis Event Note - Evaluation Sepsis Screening Result: No Definite Risk - Focused Exam Vital Signs: Vital Signs Temp Pulse Resp BP BP Pulse Ox 05/07/21 02:18 99.1 F 71 20 153/80 H 97 05/06/21 21:00 98.7 F 72 20 157/73 H 98 - Problem List & Annotations (1) FTT (failure to thrive) in adult SNOMED Code(s): 062020466 Code(s): R62.7 - ADULT FAILURE TO THRIVE Status: Acute Current Visit: Yes (2) Constipation SNOMED Code(s): 97406158 Code(s): K59.00 - CONSTIPATION, UNSPECIFIED Status: Chronic Current Visit: Yes (3) Severe protein-calorie malnutrition SNOMED Code(s): 657941855, 440618806, 184178568 Code(s): E43 - UNSPECIFIED SEVERE PROTEIN-CALORIE MALNUTRITION Status: Chronic Current Visit: Yes (4) Acute metabolic encephalopathy SNOMED Code(s): 00349111, 306281490 Code(s): G93.41 - METABOLIC ENCEPHALOPATHY Status: Acute Current Visit: No (5) HTN (hypertension) SNOMED Code(s): 65771852 Code(s): I10 - ESSENTIAL (PRIMARY) HYPERTENSION Status: Acute Priority: Low Current Visit: No - Problem List Review Problem List Initiated/Reviewed/Updated: Yes - Plan Plan:: Adult failure to thrive/Severe protein calorie malnutrition Consult to physical therapy and Occupational Therapy, consult social work for placement. Patient is agreeable for placement. Appreciate social media content manager input. We will continue having ongoing discussions with daughter about sources for placement. Continue nutritional supplementation. Generalized weakness and debility PT and OT to eval and treat Hypertension continue novasc 7.5 discontinued thiazide diuretic as patient appears to have difficulty maintaining volume status. Hyponatremia Mild, improved with fluids, likely secondary to hypovolemic hyponatremia, sodium 132 05/05/21 no need for further monitoring given patient's increased intake Thiazide diuretic could have been contributing - discontinued Hypothyroidism Continue Synthroid Chronic constipation Continue with fiber and laxative Encourage fluid intake Full CODE STATUS As per patient wishes DVT prophylaxis Subcu Lovenox Patient is now medically stable for discharge, awaiting placement
[2021-05-07] MEDS: Levothyroxine 25 MCG Tab PO SCH (06:08)
[2021-05-07] MEDS: Levothyroxine 50 MCG Tab PO SCH (06:09)
[2021-05-07] MEDS: Bisacodyl 10 MG Supp RECTAL SCH (09:00)
[2021-05-07] MEDS: Potassium Chloride 10 MEQ Tab.ER PO SCH ×2 (09:16→21:31)
[2021-05-07] MEDS: Polyethylene Glycol 3350 Powder 17 GM Packet PO SCH (09:17)
[2021-05-07] MEDS: Enoxaparin 30 MG/0.3 ML Syringe SUBCUT SCH (09:18)
[2021-05-07] MEDS: Aspirin 81 MG Tab.Chew PO SCH (09:18)
[2021-05-07] MEDS: amLODIPine 5 MG Tab PO SCH (09:19)
[2021-05-07] MEDS: Multivitamin Tab PO SCH (09:25)
[2021-05-07] MEDS: PSYLLIUM HUSK PO SCH ×2 (09:38→21:32)
[2021-05-07] MEDS ORDERED: Bisacodyl 10 MG Supp RECTAL PRN (09:45)
[2021-05-07] MEDS: Thiamine 100 MG Tab PO SCH (21:31)
[2021-05-08] MEDS: Levothyroxine 25 MCG Tab PO SCH (05:31)
[2021-05-08] MEDS: Levothyroxine 50 MCG Tab PO SCH (05:32)
[2021-05-08] MEDS: Potassium Chloride 10 MEQ Tab.ER PO SCH (08:19)
[2021-05-08] MEDS: amLODIPine 5 MG Tab PO SCH (08:20)
[2021-05-08] MEDS: Aspirin 81 MG Tab.Chew PO SCH (08:21)
[2021-05-08] MEDS: Multivitamin Tab PO SCH (08:21)
[2021-05-08] MEDS: Enoxaparin 30 MG/0.3 ML Syringe SUBCUT SCH (08:21)
[2021-05-08] MEDS: Polyethylene Glycol 3350 Powder 17 GM Packet PO SCH (08:21)
[2021-05-08] MEDS: PSYLLIUM HUSK PO SCH (09:39)
--- NOTE | 2021-05-08 11:23 | PCM.DCSUM1 ---
Discharge Summary - Hospital Course Free Text/Narrative:: [facility] [place] Admission History & Physical Patient Name: BLAYNE FORBES Date of : 1935 Patient Status: Inpatient Attending Provider: Marc Varghese Date: 05/02/21 14:41 Initialization Date: 05/02/21 14:41 H&P History of Present Illness - General Date of Service: 05/02/21 Admit Problem/Dx: Admission Diagnosis/Problem Admission Diagnosis/Problem Failure to thrive, Generalized weakness. - History of Present Illness Other HPI/Comments: Mr. Forbes is an 86-year-old male with history of dementia who was just admitted to the hospital on 04/30/2021 with multiple issues that included generalized weakness, malaise, hypokalemia ,dehydration, nausea, anorexia and constipation. The patient was kept in the hospital overnight under observation status and received IV hydration, electrolyte replacement, nutritional supplementation, laxatives, PT and OT treatments. Yesterday he felt better and requested to go home. He was discharged home but later in the evening he again got weak and was unable to get out of bed on his own. This morning his /significant other had trouble getting him out of bed and called the EMS to bring him back to the hospital. As per the , the patient had some chicken noodle soup last night but has not eaten anything today. The and the two daughters would like for him to be placed at a halfway facility. He otherwise denies having any complaints such as fevers, chills, malaise or any other issues. He is able to respond to a few questions on his own but generally does not spontaneously volunteer much of any information. - Related Data Allergies/Adverse Reactions: Allergies Allergy/AdvReac Type Severity Reaction Status Date / Time atorvastatin [From Lipitor] AdvReac Muscle Verified 04/29/21 20:57 Aches Home Medications: Home Meds Chlorthalidone 25 mg PO DAILY 11/11/17 [History] Pembrolizumab [Keytruda] 1 dose IV .[id number] 11/11/17 [History] Potassium Chloride [Klor-Con M20] 40 meq PO BID 11/11/17 [History] amLODIPine [Norvasc] 7.5 mg PO DAILY 11/11/17 [History] Levothyroxine 12.5 mcg PO DAILY 06/18/20 [History] Levothyroxine [Synthroid] 50 mcg PO ACBREAKFAST 06/18/20 [History] Aspirin [Davey Chewable Aspirin] 81 mg PO DAILY 04/30/21 [History] Magnesium Oxide 250 mg PO DAILY 04/30/21 [History] Multivitamin [Multi-Vitamin Daily] 1 tab PO DAILY 04/30/21 [History] Docusate Sodium/Sennosides [Senokot-S] 1 each PO BID 30 Days #60 tablet 05/01/21 [Rx] Lactose-Reduced Food [Ensure Active High Protein] 414 ml PO TID 30 Days #90 liquid 05/01/21 [Rx] polyethylene glycoL 3350 [MiraLAX] 17 gm PO DAILY 30 Days #30 packet 05/01/21 [Rx] Past Medical History HEENT History: Reports: Impaired Vision, Other (See Below) Other HEENT History: WEARS CORRECTIVE LENS Cardiovascular History: Reports: High Cholesterol, Hypertension Respiratory History: Reports: None Gastrointestinal History: Reports: Chronic Constipation, Other (See Below) Other Gastrointestinal History: S/P HYPOKALEMIA. RIGHT INGUINAL HERNIA Genitourinary History: Reports: Other (See Below) Other Genitourinary History: HX OF URINARY CA Musculoskeletal History: Reports: Fracture Other Musculoskeletal History: HX OF FRACTURE IN RIGHT ARM Neurological History: Reports: None Psychiatric History: Reports: Anxiety Endocrine/Metabolic History: Reports: Hypothyroidism Hematologic History: Reports: None Immunologic History: Reports: Immunosuppression Oncologic (Cancer) History: Reports: Bladder Dermatologic History: Reports: Other (See Below) Other Dermatologic History: HX OF HERPES ZOSTER - Infectious Disease History Infectious Disease History: Reports: Influenza, Measles - Past Surgical History Head Surgeries/Procedures: Reports: None HEENT Surgical History: Reports: Adenoidectomy, Tonsillectomy Cardiovascular Surgical History: Reports: None Respiratory Surgical History: Reports: None GI Surgical History: Reports: Colonoscopy Male Surgical History: Reports: None Endocrine Surgical History: Reports: None Neurological Surgical History: Reports: None Musculoskeletal Surgical History: Reports: None Oncologic Surgical History: Reports: None Dermatological Surgical History: Reports: None Social & Family History - Family History Family Medical History: No Pertinent Family History - Caffeine Use Caffeine Use: Reports: Tea Other Caffeine Use: 'ONCE IN AWHILE' - Living Situation & Occupation Living situation: Reports: , with Family Occupation: Retired H&P Review of Systems - Review of Systems: Review Of Systems: See Below Free Text/Narrative: General: He denies any fever or chills CVS: Pt denies having any chest pain or edema lungs: Denies any cough, wheezes or dyspnea Pa: Denies having any nausea, vomiting or abdominal pain today MIGUEL: Denies having any dysuria, frequency, urgency or hematuria neuro: Denies having any seizures, tremors or focal weaknesses. Exam - Exam Exam: See Below - Vital Signs Vital Signs: Last Vital Signs Temp 98.7 F 05/02/21 14:31 Pulse 77 05/02/21 14:31 Resp 20 05/02/21 14:31 BP 151/88 H 05/02/21 14:31 Pulse Ox 100 05/02/21 14:31 - Exam Physical Exam Comments:: General: This is a frail elderly male who is awake and alert no distress HEENT: NC, AT, PERRLA, EOMI. CVS: S1S2 appreciated. RRR. no murmurs gallops Lungs are clear to auscultation bilaterally. No rales or wheezes. PA: Soft, nontender, bowel sounds are presents Extremities: no clubbing, cyanosis or edema. Peripheral pulses 2+ Neuro exam: patient moves all his extremities, sensation is intact, gait not examined Psych: patient has a flat affect - Patient Data Lab Results Last 24 hrs: Laboratory Results - last 24 hr 05/02/21 05/02/21 05/02/21 Range/Units 12:15 12:15 12:15 WBC 9.0 (5.0-10.0) 10^3/uL RBC 5.12 (4.6-6.2) 10^6/uL Hgb 15.7 (14.0-18.0) g/dL Hct 44.5 (40.0-54.0) % MCV 86.9 (80-100) fL MCH 30.7 (27.0-34.0) pg MCHC 35.3 H (33.0-35.0) g/dL Plt Count 205 (150-450) 10^3/uL Neut % (Auto) 74.4 (42.2-75.2) % Lymph % (Auto) 16.1 L (20.5-50.1) % [place] % (Auto) 8.9 H (2-8) % Eos % (Auto) 0.4 L (1.0-3.0) % Baso % (Auto) 0.2 (0.0-1.0) % PT 11.0 (9.0-12.0) SEC INR 1.1 (0.9-1.2) APTT 25.2 (22.0-34.0) SEC Sodium 133 L (136-145) mmol/L Potassium 3.4 L (3.5-5.1) mmol/L Chloride 94 L (98-107) mmol/L Carbon Dioxide 28 (21-32) mmol/L Anion Gap 14.4 H (7-13) mEq/L BUN 19 H (7-18) mg/dL Creatinine 1.20 (0.70-1.30) mg/dL Est Cr Clr Drug Dosing TNP Estimated GFR (MDRD) 58 BUN/Creatinine Ratio 15.8 (No establ ref range) Glucose 109 H (70-99) mg/dL Calcium 8.7 (8.5-10.1) mg/dL Total Bilirubin 1.1 H (0.2-1.0) mg/dL AST 22 (15-37) U/L ALT 25 (16-63) U/L Alkaline Phosphatase 55 (46-116) U/L Troponin I High Sens 11 (<=76) pg/mL C-Reactive Protein 0.8 (0.0-0.9) mg/dL Total Protein 7.2 (6.4-8.2) g/dL Albumin 3.2 L (3.4-5.0) g/dL Globulin 4.0 Albumin/Globulin Ratio 0.80 Urine Color (YELLOW) Urine Appearance (CLEAR) Urine pH (5.0-9.0) Ur Specific [place] (1.005-1.030) Urine Protein (NEGATIVE) Urine Glucose (UA) (NEGATIVE) Urine Ketones (NEGATIVE) Urine Occult Blood (NEGATIVE) Urine Nitrite (NEGATIVE) Urine Bilirubin (NEGATIVE) Urine Urobilinogen (0.2-1.0) mg/dL Ur Leukocyte Esterase (NEGATIVE) Urine Opiates Screen (NEGATIVE) Ur Oxycodone Screen (NEGATIVE) Urine Methadone Screen (NEGATIVE) Ur Barbiturates Screen (NEGATIVE) U Tricyclic Antidepress (NEGATIVE) Ur Phencyclidine Scrn (NEGATIVE) Ur Amphetamine Screen (NEGATIVE) U Methamphetamines Scrn (NEGATIVE) Urine MDMA Screen (NEGATIVE) U Benzodiazepines Scrn (NEGATIVE) Urine Cocaine Screen (NEGATIVE) U Marijuana (THC) Screen (NEGATIVE) Ethyl Alcohol < 3 (0) mg/dL 05/02/21 05/02/21 Range/Units 14:10 14:10 WBC (5.0-10.0) 10^3/uL RBC (4.6-6.2) 10^6/uL Hgb (14.0-18.0) g/dL Hct (40.0-54.0) % MCV (80-100) fL MCH (27.0-34.0) pg MCHC (33.0-35.0) g/dL Plt Count (150-450) 10^3/uL Neut % (Auto) (42.2-75.2) % Lymph % (Auto) (20.5-50.1) % [place] % (Auto) (2-8) % Eos % (Auto) (1.0-3.0) % Baso % (Auto) (0.0-1.0) % PT (9.0-12.0) SEC INR (0.9-1.2) APTT (22.0-34.0) SEC Sodium (136-145) mmol/L Potassium (3.5-5.1) mmol/L Chloride (98-107) mmol/L Carbon Dioxide (21-32) mmol/L Anion Gap (7-13) mEq/L BUN (7-18) mg/dL Creatinine (0.70-1.30) mg/dL Est Cr Clr Drug Dosing Estimated GFR (MDRD) BUN/Creatinine Ratio (No establ ref range) Glucose (70-99) mg/dL Calcium (8.5-10.1) mg/dL Total Bilirubin (0.2-1.0) mg/dL AST (15-37) U/L ALT (16-63) U/L Alkaline Phosphatase (46-116) U/L Troponin I High Sens (<=76) pg/mL C-Reactive Protein (0.0-0.9) mg/dL Total Protein (6.4-8.2) g/dL Albumin (3.4-5.0) g/dL Globulin Albumin/Globulin Ratio Urine Color Yellow (YELLOW) Urine Appearance Clear (CLEAR) Urine pH 7.0 (5.0-9.0) Ur Specific [place] 1.025 (1.005-1.030) Urine Protein Negative (NEGATIVE) Urine Glucose (UA) Negative (NEGATIVE) Urine Ketones Negative (NEGATIVE) Urine Occult Blood Negative (NEGATIVE) Urine Nitrite Negative (NEGATIVE) Urine Bilirubin Negative (NEGATIVE) Urine Urobilinogen 0.2 (0.2-1.0) mg/dL Ur Leukocyte Esterase Negative (NEGATIVE) Urine Opiates Screen Negative (NEGATIVE) Ur Oxycodone Screen Negative (NEGATIVE) Urine Methadone Screen Negative (NEGATIVE) Ur Barbiturates Screen Negative (NEGATIVE) U Tricyclic Antidepress Negative (NEGATIVE) Ur Phencyclidine Scrn Negative (NEGATIVE) Ur Amphetamine Screen Negative (NEGATIVE) U Methamphetamines Scrn Negative (NEGATIVE) Urine MDMA Screen Negative (NEGATIVE) U Benzodiazepines Scrn Negative (NEGATIVE) Urine Cocaine Screen Negative (NEGATIVE) U Marijuana (THC) Screen Negative (NEGATIVE) Ethyl Alcohol (0) mg/dL Result Diagrams: 05/02/21 12:15 05/02/21 12:15 - Problem List (1) FTT (failure to thrive) in adult SNOMED Code(s): 907506838 ICD Code: R62.7 - ADULT FAILURE TO THRIVE Status: Acute Current Visit: Yes (2) Weakness SNOMED Code(s): 42936987 ICD Code: R53.1 - WEAKNESS Status: Acute Current Visit: No (3) Dementia SNOMED Code(s): 45356268 ICD Code: F03.90 - UNSPECIFIED DEMENTIA WITHOUT BEHAVIORAL DISTURBANCE Status: Chronic Current Visit: No (4) HTN (hypertension) SNOMED Code(s): 25049232 ICD Code: I10 - ESSENTIAL (PRIMARY) HYPERTENSION Status: Acute Priority: Low Current Visit: No (5) Hypokalemia SNOMED Code(s): 45162876 ICD Code: E87.6 - HYPOKALEMIA Status: Acute Priority: Medium Current Visit: No Problem List Initiated/Reviewed/Updated: Yes Orders Last 24hrs: Active Orders 24 hr Category Date Time Status Patient Status [ADT] Routine ADT 05/02/21 13:50 Active Patient Status [ADT] Routine ADT 05/02/21 14:10 Active Blood Glucose Check, Bedside [RC] ONETIME Care 05/02/21 11:44 Active EKG 12 Lead [EKG Documentation Completion] [RC] STAT Care 05/02/21 11:44 Active NIH Stroke Scale [RC] ASDIRECTED Care 05/02/21 11:45 Active Oxygen Therapy [RC] PRN Care 05/02/21 14:10 Active Peripheral IV Care [RC] . DIRECTED Care 05/02/21 11:45 Active Up With Assistance [RC] ASDIRECTED Care 05/02/21 14:10 Active VTE/DVT Education [RC] PER UNIT ROUTINE Care 05/02/21 14:10 Active Vital Signs [RC] Q4H Care 05/02/21 14:10 Active OT Evaluation and Treatment [CONS] Routine Cons 05/02/21 14:10 Active PT Evaluation and Treatment [CONS] Routine Cons 05/02/21 14:10 Active Regular Diet [DIET] Diet 05/02/21 Dinner Active CULTURE BLOOD [BC] Stat Lab 05/02/21 12:15 Received CULTURE BLOOD [BC] Stat Lab 05/02/21 12:15 Received Enoxaparin [Lovenox] Med 05/02/21 15:00 Active 30 mg SUBCUT DAILY Ondansetron [Zofran ODT] Med 05/02/21 14:10 Active 4 mg PO Q4H PRN Potassium Chloride [Klor-Con 10] Med 05/02/21 15:00 Once 40 meq PO ONETIME ONE oxyCODONE Med 05/02/21 14:10 Active 5 mg PO Q4H PRN Blood Culture x2 Reflex Set [OM.PC] Stat Oth 05/02/21 11:44 Ordered Peripheral IV Insertion Adult [OM.PC] Stat Oth 05/02/21 11:45 Ordered Resuscitation Status Routine Resus Stat 05/02/21 14:10 Ordered Medication Orders Enoxaparin Sodium (Enoxaparin 30 Mg/0.3 Ml Syringe) 30 mg SUBCUT DAILY KAYA Ondansetron HCl (Ondansetron 4 Mg Tab.Dis) 4 mg PO Q4H PRN PRN Reason: nausea, able to take PO Oxycodone HCl (Oxycodone 5 Mg Tab) 5 mg PO Q4H PRN PRN Reason: Pain (moderate 4-6) Potassium Chloride (Potassium Chloride 10 Meq Tab.Er) 40 meq PO ONETIME ONE Stop: 05/02/21 15:01 Assessment/Plan Comment:: Adult failure to thrive Admit patient to the medical floor. We will order physical and occupational therapy Case management to assist with SNF placement. Will offer nutrition supplementation Generalized weakness and debility PT and OT to eval and treat Hypertension Resume novasc Will discontinue the thiazide diuretic and start metoprolol given that he is becoming dehydrated easily while on the the medication Hypothyroidism On synthroid. Full CODE STATUS As per patient wishes DVT prophylaxis Subcu Lovenox Patient will need more than 2 midnight stays before he can be accepted into a SNF. HPI Initial Comments: 05/08/21 afebrile vss doing well overnight . eating fair but variable and on protein shake supplements. spirits good oriented to person and place. feels weak but in rehab andwill cont. on in s.b. p.e. unchanged. assess weakness and failure to thrive . weight loss /poor appetite. plan cont services and strength training on swing bed / try to improve malnutrition issues. supportive environment. boh Modified Jeet Scale: Mod.Disablility Requiring Some Help,Able to Walk Without Assistance Modified [facility] Scale Score: 3 - Discharge Data Discharge Date: 05/08/21 Discharge Disposition: DC/Tfer W/I Hosp To Swing 61 Condition: Good - Referral to Home Health Primary Care Physician: PCP None - Discharge Diagnosis/Problem(s) (1) FTT (failure to thrive) in adult SNOMED Code(s): 299962108 ICD Code: R62.7 - ADULT FAILURE TO THRIVE Status: Acute Priority: Medium Current Visit: Yes Onset Date: ~05/01/21 (2) Constipation SNOMED Code(s): 21617878 ICD Code: K59.00 - CONSTIPATION, UNSPECIFIED Status: Chronic Priority: Medium Current Visit: Yes Onset Date: ~05/03/21 Qualifiers: Constipation type: slow transit constipation Qualified Code(s): K59.01 - Slow transit constipation (3) Severe protein-calorie malnutrition SNOMED Code(s): 043301204, 429280870, 558969506 ICD Code: E43 - UNSPECIFIED SEVERE PROTEIN-CALORIE MALNUTRITION Status: Chronic Priority: Medium Current Visit: Yes Onset Date: ~05/01/21 (4) Altered mental status SNOMED Code(s): 170468701 ICD Code: R41.82 - ALTERED MENTAL STATUS, UNSPECIFIED Status: Acute Priority: Medium Current Visit: No Onset Date: ~05/01/21 Problem Details: delerioum cleared but still mod blankness and confusion Qualifiers: Altered mental status type: disorientation Qualified Code(s): R41.0 - Di sorientation, unspecified (5) HTN (hypertension) SNOMED Code(s): 35233601 ICD Code: I10 - ESSENTIAL (PRIMARY) HYPERTENSION Status: Acute Priority: Low Current Visit: No Onset Date: ~05/01/21 (6) Hypokalemia SNOMED Code(s): 69632894 ICD Code: E87.6 - HYPOKALEMIA Status: Acute Priority: Medium Current Visit: No Onset Date: ~05/01/21 Problem Details: resolved - Patient Summary/Data Consults: Consultations 05/02/21 14:10 OT Evaluation and Treatment [CONS] Routine PT Evaluation and Treatment [CONS] Routine - Patient Instructions Diet: Usual Diet as Tolerated Activity: As Tolerated Driving: Do Not Drive Showering/Bathing: No Showering Notify Provider of: Fever, Nausea and/or Vomiting Other/Special Instructions: cont p.t.// o.t. and dietary support. - Discharge Plan *PRESCRIPTION DRUG MONITORING PROGRAM REVIEWED*: Not Applicable *COPY OF PRESCRIPTION DRUG MONITORING REPORT IN PATIENT YUNIEL: Not Applicable Prescriptions/Med Rec: Sennosides [Evac-U-Gen] 8.6 mg PO ACLUNCH 30 Days #30 tablet Multivitamin/Iron/Folic Acid [One Daily Multivitamin-Iron Tb] 1 each PO ACLUNCH #30 tablet Thiamine HCl [Vitamin B-1] 50 mg PO ACLUNCH #30 tablet Home Medications: Home Meds Chlorthalidone 25 mg PO DAILY 11/11/17 [History] Pembrolizumab [Keytruda] 1 dose IV .[id number] 11/11/17 [History] Levothyroxine 12.5 mcg PO ACBREAKFAST 06/18/20 [History] Levothyroxine [Synthroid] 50 mcg PO ACBREAKFAST 06/18/20 [History] Aspirin [Davey Chewable Aspirin] 81 mg PO DAILY 04/30/21 [History] Magnesium Oxide 250 mg PO DAILY 04/30/21 [History] Multivitamin [Multi-Vitamin Daily] 1 tab PO DAILY 04/30/21 [History] Docusate Sodium/Sennosides [Senokot-S] 1 each PO BID 30 Days #60 tablet 05/01/21 [Rx] Lactose-Reduced Food [Ensure Active High Protein] 414 ml PO TID 30 Days #90 liquid 05/01/21 [Rx] polyethylene glycoL 3350 [MiraLAX] 17 gm PO DAILY 30 Days #30 packet 05/01/21 [Rx] Docusate Sodium/Sennosides [Senna Plus] 1 tab PO BID tablet 05/08/21 [Rx] Levothyroxine 12.5 mcg PO ACBREAKFAST tablet 05/08/21 [Rx] Multivitamin/Iron/Folic Acid [One Daily Multivitamin-Iron Tb] 1 each PO ACLUNCH #30 tablet 05/08/21 [Rx] Patient's Own Medication [Ptom] 0 each PO BID each 05/08/21 [Rx] Sennosides [Evac-U-Gen] 8.6 mg PO ACLUNCH 30 Days #30 tablet 05/08/21 [Rx] Thiamine HCl [Vitamin B-1] 50 mg PO ACLUNCH #30 tablet 05/08/21 [Rx] amLODIPine [Norvasc] 7.5 mg PO DAILY 05/08/21 [History] amLODIPine [Norvasc] 7.5 mg PO DAILY tablet 05/08/21 [Rx] Forms: ED Department Discharge Referrals: PCP,None [Primary Care Provider] - - Discharge Summary/Plan Comment DC Time >30 min.: Yes Total # of Minutes for Discharge Time: 40 minute Discharge Summary/Plan Comment: 05/08/21 afebrile vss doing well overnight . eating fair but variable and on protein shake supplements. spirits good oriented to person and place. feels weak but in rehab andwill cont. on in s.b. p.e. unchanged. assess weakness and failure to thrive . sss with pacer. weight loss /poor appetite. plan cont services and strength training on swing bed / try to improve malnutrition issues. supportive environment. boh - General Info Date of Service: 05/08/21 Admission Dx/Problem (Free Text: Generalized weakness Subjective Update: [facility] Admission History & Physical Patient Name: BLAYNE FORBES Date of : 1935 Patient Status: Inpatient Attending Provider: Marc Varghese Date: 05/02/21 14:41 Initialization Date: 05/02/21 14:41 H&P History of Present Illness - General Date of Service: 05/02/21 Admit Problem/Dx: Admission Diagnosis/Problem Admission Diagnosis/Problem Failure to thrive, Generalized weakness. - History of Present Illness Other HPI/Comments: Mr. Forbes is an 86-year-old male with history of dementia who was just admitted to the hospital on 04/30/2021 with multiple issues that included generalized weakness, malaise, hypokalemia ,dehydration, nausea, anorexia and constipation. The patient was kept in the hospital overnight under observation status and received IV hydration, electrolyte replacement, nutritional supplementation, laxatives, PT and OT treatments. Yesterday he felt better and requested to go home. He was discharged home but later in the evening he again got weak and was unable to get out of bed on his own. This morning his /significant other had trouble getting him out of bed and called the EMS to bring him back to the hospital. As per the , the patient had some chicken noodle soup last night but has not eaten anything today. The and the two daughters would like for him to be placed at a halfway facility. He otherwise denies having any complaints such as fevers, chills, malaise or any other issues. He is able to respond to a few questions on his own but generally does not spontaneously volunteer much of any information. - Related Data Allergies/Adverse Reactions: Allergies Allergy/AdvReac Type Severity Reaction Status Date / Time atorvastatin [From Lipitor] AdvReac Muscle Verified 04/29/21 20:57 Aches Home Medications: Home Meds Chlorthalidone 25 mg PO DAILY 11/11/17 [History] Pembrolizumab [Keytruda] 1 dose IV .[id number] 11/11/17 [History] Potassium Chloride [Klor-Con M20] 40 meq PO BID 11/11/17 [History] amLODIPine [Norvasc] 7.5 mg PO DAILY 11/11/17 [History] Levothyroxine 12.5 mcg PO DAILY 06/18/20 [History] Levothyroxine [Synthroid] 50 mcg PO ACBREAKFAST 06/18/20 [History] Aspirin [Davey Chewable Aspirin] 81 mg PO DAILY 04/30/21 [History] Magnesium Oxide 250 mg PO DAILY 04/30/21 [History] Multivitamin [Multi-Vitamin Daily] 1 tab PO DAILY 04/30/21 [History] Docusate Sodium/Sennosides [Senokot-S] 1 each PO BID 30 Days #60 tablet 05/01/21 [Rx] Lactose-Reduced Food [Ensure Active High Protein] 414 ml PO TID 30 Days #90 liquid 05/01/21 [Rx] polyethylene glycoL 3350 [MiraLAX] 17 gm PO DAILY 30 Days #30 packet 05/01/21 [Rx] Past Medical History HEENT History: Reports: Impaired Vision, Other (See Below) Other HEENT History: WEARS CORRECTIVE LENS Cardiovascular History: Reports: High Cholesterol, Hypertension Respiratory History: Reports: None Gastrointestinal History: Reports: Chronic Constipation, Other (See Below) Other Gastrointestinal History: S/P HYPOKALEMIA. RIGHT INGUINAL HERNIA Genitourinary History: Reports: Other (See Below) Other Genitourinary History: HX OF URINARY CA Musculoskeletal History: Reports: Fracture Other Musculoskeletal History: HX OF FRACTURE IN RIGHT ARM Neurological History: Reports: None Psychiatric History: Reports: Anxiety Endocrine/Metabolic History: Reports: Hypothyroidism Hematologic History: Reports: None Immunologic History: Reports: Immunosuppression Oncologic (Cancer) History: Reports: Bladder Dermatologic History: Reports: Other (See Below) Other Dermatologic History: HX OF HERPES ZOSTER - Infectious Disease History Infectious Disease History: Reports: Influenza, Measles - Past Surgical History Head Surgeries/Procedures: Reports: None HEENT Surgical History: Reports: Adenoidectomy, Tonsillectomy Cardiovascular Surgical History: Reports: None Respiratory Surgical History: Reports: None GI Surgical History: Reports: Colonoscopy Male Surgical History: Reports: None Endocrine Surgical History: Reports: None Neurological Surgical History: Reports: None Musculoskeletal Surgical History: Reports: None Oncologic Surgical History: Reports: None Dermatological Surgical History: Reports: None Social & Family History - Family History Family Medical History: No Pertinent Family History - Caffeine Use Caffeine Use: Reports: Tea Other Caffeine Use: 'ONCE IN AWHILE' - Living Situation & Occupation Living situation: Reports: , with Family Occupation: Retired H&P Review of Systems - Review of Systems: Review Of Systems: See Below Free Text/Narrative: General: He denies any fever or chills CVS: Pt denies having any chest pain or edema lungs: Denies any cough, wheezes or dyspnea Pa: Denies having any nausea, vomiting or abdominal pain today MIGUEL: Denies having any dysuria, frequency, urgency or hematuria neuro: Denies having any seizures, tremors or focal weaknesses. Exam - Exam Exam: See Below - Vital Signs Vital Signs: Last Vital Signs Temp 98.7 F 05/02/21 14:31 Pulse 77 05/02/21 14:31 Resp 20 05/02/21 14:31 BP 151/88 H 05/02/21 14:31 Pulse Ox 100 05/02/21 14:31 - Exam Physical Exam Comments:: General: This is a frail elderly male who is awake and alert no distress HEENT: NC, AT, PERRLA, EOMI. CVS: S1S2 appreciated. RRR. no murmurs gallops Lungs are clear to auscultation bilaterally. No rales or wheezes. PA: Soft, nontender, bowel sounds are presents Extremities: no clubbing, cyanosis or edema. Peripheral pulses 2+ Neuro exam: patient moves all his extremities, sensation is intact, gait not examined Psych: patient has a flat affect - Patient Data Lab Results Last 24 hrs: Laboratory Results - last 24 hr 05/02/21 05/02/21 05/02/21 Range/Units 12:15 12:15 12:15 WBC 9.0 (5.0-10.0) 10^3/uL RBC 5.12 (4.6-6.2) 10^6/uL Hgb 15.7 (14.0-18.0) g/dL Hct 44.5 (40.0-54.0) % MCV 86.9 (80-100) fL MCH 30.7 (27.0-34.0) pg MCHC 35.3 H (33.0-35.0) g/dL Plt Count 205 (150-450) 10^3/uL Neut % (Auto) 74.4 (42.2-75.2) % Lymph % (Auto) 16.1 L (20.5-50.1) % [place] % (Auto) 8.9 H (2-8) % Eos % (Auto) 0.4 L (1.0-3.0) % Baso % (Auto) 0.2 (0.0-1.0) % PT 11.0 (9.0-12.0) SEC INR 1.1 (0.9-1.2) APTT 25.2 (22.0-34.0) SEC Sodium 133 L (136-145) mmol/L Potassium 3.4 L (3.5-5.1) mmol/L Chloride 94 L (98-107) mmol/L Carbon Dioxide 28 (21-32) mmol/L Anion Gap 14.4 H (7-13) mEq/L BUN 19 H (7-18) mg/dL Creatinine 1.20 (0.70-1.30) mg/dL Est Cr Clr Drug Dosing TNP Estimated GFR (MDRD) 58 BUN/Creatinine Ratio 15.8 (No establ ref range) Glucose 109 H (70-99) mg/dL Calcium 8.7 (8.5-10.1) mg/dL Total Bilirubin 1.1 H (0.2-1.0) mg/dL AST 22 (15-37) U/L ALT 25 (16-63) U/L Alkaline Phosphatase 55 (46-116) U/L Troponin I High Sens 11 (<=76) pg/mL C-Reactive Protein 0.8 (0.0-0.9) mg/dL Total Protein 7.2 (6.4-8.2) g/dL Albumin 3.2 L (3.4-5.0) g/dL Globulin 4.0 Albumin/Globulin Ratio 0.80 Urine Color (YELLOW) Urine Appearance (CLEAR) Urine pH (5.0-9.0) Ur Specific [place] (1.005-1.030) Urine Protein (NEGATIVE) Urine Glucose (UA) (NEGATIVE) Urine Ketones (NEGATIVE) Urine Occult Blood (NEGATIVE) Urine Nitrite (NEGATIVE) Urine Bilirubin (NEGATIVE) Urine Urobilinogen (0.2-1.0) mg/dL Ur Leukocyte Esterase (NEGATIVE) Urine Opiates Screen (NEGATIVE) Ur Oxycodone Screen (NEGATIVE) Urine Methadone Screen (NEGATIVE) Ur Barbiturates Screen (NEGATIVE) U Tricyclic Antidepress (NEGATIVE) Ur Phencyclidine Scrn (NEGATIVE) Ur Amphetamine Screen (NEGATIVE) U Methamphetamines Scrn (NEGATIVE) Urine MDMA Screen (NEGATIVE) U Benzodiazepines Scrn (NEGATIVE) Urine Cocaine Screen (NEGATIVE) U Marijuana (THC) Screen (NEGATIVE) Ethyl Alcohol < 3 (0) mg/dL 05/02/21 05/02/21 Range/Units 14:10 14:10 WBC (5.0-10.0) 10^3/uL RBC (4.6-6.2) 10^6/uL Hgb (14.0-18.0) g/dL Hct (40.0-54.0) % MCV (80-100) fL MCH (27.0-34.0) pg MCHC (33.0-35.0) g/dL Plt Count (150-450) 10^3/uL Neut % (Auto) (42.2-75.2) % Lymph % (Auto) (20.5-50.1) % [place] % (Auto) (2-8) % Eos % (Auto) (1.0-3.0) % Baso % (Auto) (0.0-1.0) % PT (9.0-12.0) SEC INR (0.9-1.2) APTT (22.0-34.0) SEC Sodium (136-145) mmol/L Potassium (3.5-5.1) mmol/L Chloride (98-107) mmol/L Carbon Dioxide (21-32) mmol/L Anion Gap (7-13) mEq/L BUN (7-18) mg/dL Creatinine (0.70-1.30) mg/dL Est Cr Clr Drug Dosing Estimated GFR (MDRD) BUN/Creatinine Ratio (No establ ref range) Glucose (70-99) mg/dL Calcium (8.5-10.1) mg/dL Total Bilirubin (0.2-1.0) mg/dL AST (15-37) U/L ALT (16-63) U/L Alkaline Phosphatase (46-116) U/L Troponin I High Sens (<=76) pg/mL C-Reactive Protein (0.0-0.9) mg/dL Total Protein (6.4-8.2) g/dL Albumin (3.4-5.0) g/dL Globulin Albumin/Globulin Ratio Urine Color Yellow (YELLOW) Urine Appearance Clear (CLEAR) Urine pH 7.0 (5.0-9.0) Ur Specific [place] 1.025 (1.005-1.030) Urine Protein Negative (NEGATIVE) Urine Glucose (UA) Negative (NEGATIVE) Urine Ketones Negative (NEGATIVE) Urine Occult Blood Negative (NEGATIVE) Urine Nitrite Negative (NEGATIVE) Urine Bilirubin Negative (NEGATIVE) Urine Urobilinogen 0.2 (0.2-1.0) mg/dL Ur Leukocyte Esterase Negative (NEGATIVE) Urine Opiates Screen Negative (NEGATIVE) Ur Oxycodone Screen Negative (NEGATIVE) Urine Methadone Screen Negative (NEGATIVE) Ur Barbiturates Screen Negative (NEGATIVE) U Tricyclic Antidepress Negative (NEGATIVE) Ur Phencyclidine Scrn Negative (NEGATIVE) Ur Amphetamine Screen Negative (NEGATIVE) U Methamphetamines Scrn Negative (NEGATIVE) Urine MDMA Screen Negative (NEGATIVE) U Benzodiazepines Scrn Negative (NEGATIVE) Urine Cocaine Screen Negative (NEGATIVE) U Marijuana (THC) Screen Negative (NEGATIVE) Ethyl Alcohol (0) mg/dL Result Diagrams: 05/02/21 12:15 05/02/21 12:15 - Problem List (1) FTT (failure to thrive) in adult SNOMED Code(s): 497768533 ICD Code: R62.7 - ADULT FAILURE TO THRIVE Status: Acute Current Visit: Yes (2) Weakness SNOMED Code(s): 56191972 ICD Code: R53.1 - WEAKNESS Status: Acute Current Visit: No (3) Dementia SNOMED Code(s): 23845610 ICD Code: F03.90 - UNSPECIFIED DEMENTIA WITHOUT BEHAVIORAL DISTURBANCE Status: Chronic Current Visit: No (4) HTN (hypertension) SNOMED Code(s): 74215113 ICD Code: I10 - ESSENTIAL (PRIMARY) HYPERTENSION Status: Acute Priority: Low Current Visit: No (5) Hypokalemia SNOMED Code(s): 19485675 ICD Code: E87.6 - HYPOKALEMIA Status: Acute Priority: Medium Current Visit: No Problem List Initiated/Reviewed/Updated: Yes Orders Last 24hrs: Active Orders 24 hr Category Date Time Status Patient Status [ADT] Routine ADT 05/02/21 13:50 Active Patient Status [ADT] Routine ADT 05/02/21 14:10 Active Blood Glucose Check, Bedside [RC] ONETIME Care 05/02/21 11:44 Active EKG 12 Lead [EKG Documentation Completion] [RC] STAT Care 05/02/21 11:44 Active NIH Stroke Scale [RC] ASDIRECTED Care 05/02/21 11:45 Active Oxygen Therapy [RC] PRN Care 05/02/21 14:10 Active Peripheral IV Care [RC] . DIRECTED Care 05/02/21 11:45 Active Up With Assistance [RC] ASDIRECTED Care 05/02/21 14:10 Active VTE/DVT Education [RC] PER UNIT ROUTINE Care 05/02/21 14:10 Active Vital Signs [RC] Q4H Care 05/02/21 14:10 Active OT Evaluation and Treatment [CONS] Routine Cons 05/02/21 14:10 Active PT Evaluation and Treatment [CONS] Routine Cons 05/02/21 14:10 Active Regular Diet [DIET] Diet 05/02/21 Dinner Active CULTURE BLOOD [BC] Stat Lab 05/02/21 12:15 Received CULTURE BLOOD [BC] Stat Lab 05/02/21 12:15 Received Enoxaparin [Lovenox] Med 05/02/21 15:00 Active 30 mg SUBCUT DAILY Ondansetron [Zofran ODT] Med 05/02/21 14:10 Active 4 mg PO Q4H PRN Potassium Chloride [Klor-Con 10] Med 05/02/21 15:00 Once 40 meq PO ONETIME ONE oxyCODONE Med 05/02/21 14:10 Active 5 mg PO Q4H PRN Blood Culture x2 Reflex Set [OM.PC] Stat Oth 05/02/21 11:44 Ordered Peripheral IV Insertion Adult [OM.PC] Stat Oth 05/02/21 11:45 Ordered Resuscitation Status Routine Resus Stat 05/02/21 14:10 Ordered Medication Orders Enoxaparin Sodium (Enoxaparin 30 Mg/0.3 Ml Syringe) 30 mg SUBCUT DAILY KAYA Ondansetron HCl (Ondansetron 4 Mg Tab.Dis) 4 mg PO Q4H PRN PRN Reason: nausea, able to take PO Oxycodone HCl (Oxycodone 5 Mg Tab) 5 mg PO Q4H PRN PRN Reason: Pain (moderate 4-6) Potassium Chloride (Potassium Chloride 10 Meq Tab.Er) 40 meq PO ONETIME ONE Stop: 05/02/21 15:01 Assessment/Plan Comment:: Adult failure to thrive Admit patient to the medical floor. We will order physical and occupational therapy Case management to assist with SNF placement. Will offer nutrition supplementation Generalized weakness and debility PT and OT to eval and treat Hypertension Resume bright Will discontinue the thiazide diuretic and start metoprolol given that he is becoming dehydrated easily while on the the medication Hypothyroidism On synthroid. Full CODE STATUS As per patient wishes DVT prophylaxis Subcu Lovenox Patient will need more than 2 midnight stays before he can be accepted into a SNF. 05/08/21 afebrile vss doing well overnight . eating fair but variable and on protein shake supplements. spirits good oriented to person and place. feels weak but in rehab andwill cont. on in s.b. p.e. unchanged. assess weakness and failure to thrive . weight loss /poor appetite. plan cont services and strength training on swing bed / try to improve malnutrition issues. supportive environment. boh Functional Status: Reports: Pain Controlled - Review of Systems General: Reports: No Symptoms HEENT: Reports: No Symptoms Pulmonary: Reports: No Symptoms Cardiovascular: Reports: No Symptoms Gastrointestinal: Reports: No Symptoms Genitourinary: Reports: No Symptoms Musculoskeletal: Reports: No Symptoms Skin: Reports: No Symptoms Neurological: Reports: No Symptoms Psychiatric: Reports: No Symptoms - Patient Data Vitals - Most Recent: Last Vital Signs Temp 36.7 C 05/08/21 07:43 Pulse 76 05/08/21 07:43 Resp 20 05/08/21 07:43 BP 150/60 H 05/08/21 08:20 Pulse Ox 98 05/08/21 07:43 Weight - Most Recent: 60.963 kg I&O - Last 24 hours: Intake & Output 05/07/21 05/08/21 05/08/21 22:59 06:59 14:59 Intake Total 500 150 Output Total 300 Balance 500 150 -300 VAIBHAV Results - Last 24 hrs: Microbiology 05/02/21 12:15 Aerobic Blood Culture - Final Blood - Arm, Left NO GROWTH AFTER 5 DAYS Anaerobic Blood Culture - Final NO GROWTH AFTER 5 DAYS 05/02/21 12:15 Aerobic Blood Culture - Final Blood - Arm, Right NO GROWTH AFTER 5 DAYS Anaerobic Blood Culture - Final NO GROWTH AFTER 5 DAYS Med Orders - Current: Current Medications Amlodipine Besylate (Amlodipine 5 Mg Tab) 7.5 mg PO DAILY KAYA Last Admin: 05/08/21 08:20 Dose: 7.5 mg Documented by: Aspirin (Aspirin 81 Mg Tab.Chew) 81 mg PO DAILY [facility] Last Admin: 05/08/21 08:21 Dose: 81 mg Documented by: Bisacodyl (Bisacodyl 10 Mg Supp) 10 mg RECTAL DAILY PRN PRN Reason: constipation Enoxaparin Sodium (Enoxaparin 30 Mg/0.3 Ml Syringe) 30 mg SUBCUT DAILY [facility] Last Admin: 05/08/21 08:21 Dose: 30 mg Documented by: Levothyroxine Sodium (Levothyroxine 25 Mcg Tab) 12.5 mcg PO ACBREAKFAST [facility] Last Admin: 05/08/21 05:31 Dose: 12.5 mcg Documented by: Levothyroxine Sodium (Levothyroxine 50 Mcg Tab) 50 mcg PO ACBREAKFAST [facility] Last Admin: 05/08/21 05:32 Dose: 50 mcg Documented by: Magnesium Oxide (Magnesium Oxide 250 Mg Tab) 250 mg PO DAILY [facility] Last Admin: 05/08/21 08:21 Dose: 250 mg Documented by: Multivitamins/Minerals/Vitamin C (Multivitamin Tab) 1 tab PO DAILY [facility] Last Admin: 05/08/21 08:21 Dose: 1 tab Documented by: Ondansetron HCl (Ondansetron 4 Mg Tab.Dis) 4 mg PO Q4H PRN PRN Reason: nausea, able to take PO Psyllium Husk ( Metamucil) Powder Own Med 0 each PO BID [facility] Last Admin: 05/08/21 09:39 Dose: 1 each Documented by: Polyethylene Glycol (Polyethylene Glycol 3350 Powder 17 Gm Packet) 17 gm PO DAILY [facility] Last Admin: 05/08/21 08:21 Dose: 17 gm Documented by: Potassium Chloride (Potassium Chloride 10 Meq Tab.Er) 40 meq PO BID [facility] Last Admin: 05/08/21 08:19 Dose: 40 meq Documented by: Senna/Docusate Sodium (Docusate Sodium/Sennosides 50-8.6 Mg Tab) 1 tab PO BID [facility] Last Admin: 05/08/21 08:21 Dose: 1 tab Documented by: Thiamine HCl (Thiamine 100 Mg Tab) 100 mg PO BEDTIME [facility] Last Admin: 05/07/21 21:31 Dose: 100 mg Documented by: Discontinued Medications Bisacodyl (Bisacodyl 10 Mg Supp) 10 mg RECTAL DAILY [facility] Last Admin: 05/07/21 09:00 Dose: Not Given Documented by: Hydralazine HCl (Hydralazine 25 Mg Tab) 25 mg PO Q8H PRN PRN Reason: Hypertension Sodium Chloride (Normal Saline) 500 mls @ 50 mls/hr IV ONETIME ONE Stop: 05/04/21 19:06 Last Admin: 05/04/21 09:55 Dose: 50 mls/hr Documented by: Metoprolol Tartrate (Metoprolol Tartrate 50 Mg Tab) 50 mg PO Q12H KAYA Last Admin: 05/04/21 12:14 Dose: Not Given Documented by: Non-Formulary Medication (Pembrolizumab [Keytruda]) 1 dose IV .[id number] KAYA Oxycodone HCl (Oxycodone 5 Mg Tab) 5 mg PO Q4H PRN PRN Reason: Pain (moderate 4-6) Potassium Chloride (Potassium Chloride 10% 20 Meq/15 Ml Soln 15 Ml Ud Cup) 40 meq PO ONETIME ONE Stop: 05/02/21 15:01 Last Admin: 05/02/21 16:24 Dose: 40 meq Documented by: Psyllium Husk (Psyllium Husk Powder Sugar Free 5.85 Gm Packet) 1 pkt PO BID KAYA Sodium Chloride (Sodium Chloride 0.9% 10 Ml Syringe) 10 ml FLUSH ASDIRECTED PRN PRN Reason: Keep Vein Open - Exam General: Reports: Alert, Oriented HEENT: Reports: Pupils Equal, Pupils Reactive, EOMI, Mucous Membr. Moist/[place] Neck: Reports: Supple Lungs: Reports: Clear to Auscultation, Normal Respiratory Effort Cardiovascular: Reports: Regular Rate, Regular Rhythm GI/Abdominal Exam: Normal Bowel Sounds, Soft, Non-Tender, No Organomegaly, No Distention, No Abnormal Bruit, No Mass, Pelvis Stable (Male) Exam: No Hernia, Normal Inspection, Normal Prostate, Circumcised Rectal (Males) Exam: Normal Exam, Normal Rectal Tone, Prostate Normal Back Exam: Reports: Normal Inspection, Full Range of Motion Extremities: Normal Inspection, Normal Range of Motion, Non-Tender, No Pedal Edema, Normal Capillary Refill Skin: Reports: Warm, Dry, Intact Wound/Incisions: Reports: Healing Well Neurological: Reports: No New Focal Deficit Psy/Mental Status: Reports: Alert, Normal Affect, Normal Mood
--- NOTE | 2021-05-09 14:26 | PCM.HP ---
H&P History of Present Illness - General Date of Service: 05/09/21 Admit Problem/Dx: Generalized weakness Source of Information: Patient, Family, Provider History Limitations: Reports: Altered Mental Status, Physical Impairment - History of Present Illness Initial Comments - Free Text/Narative: [facility] Admission History & Physical Patient Name: BLAYNE FORBES Date of : 1935 Patient Status: Inpatient Attending Provider: Marc Varghese Date: 05/02/21 14:41 Initialization Date: 05/02/21 14:41 H&P History of Present Illness - General Date of Service: 05/02/21 Admit Problem/Dx: Admission Diagnosis/Problem Admission Diagnosis/Problem Failure to thrive, Generalized weakness. - History of Present Illness Other HPI/Comments: Mr. Forbes is an 86-year-old male with history of dementia who was just admitted to the hospital on 04/30/2021 with multiple issues that included generalized weakness, malaise, hypokalemia ,dehydration, nausea, anorexia and constipation. The patient was kept in the hospital overnight under observation status and received IV hydration, electrolyte replacement, nutritional supplementation, laxatives, PT and OT treatments. Yesterday he felt better and requested to go home. He was discharged home but later in the evening he again got weak and was unable to get out of bed on his own. This morning his /significant other had trouble getting him out of bed and called the EMS to bring him back to the hospital. As per the , the patient had some chicken n oodle soup last night but has not eaten anything today. The and the two daughters would like for him to be placed at a penitentiary facility. He otherwise denies having any complaints such as fevers, chills, malaise or any other issues. He is able to respond to a few questions on his own but generally does not spontaneously volunteer much of any information. - Related Data Allergies/Adverse Reactions: Allergies Allergy/AdvReac Type Severity Reaction Status Date / Time atorvastatin [From Lipitor] AdvReac Muscle Verified 04/29/21 20:57 Aches Home Medications: Home Meds Chlorthalidone 25 mg PO DAILY 11/11/17 [History] Pembrolizumab [Keytruda] 1 dose IV .[id number] 11/11/17 [History] Potassium Chloride [Klor-Con M20] 40 meq PO BID 11/11/17 [History] amLODIPine [Norvasc] 7.5 mg PO DAILY 11/11/17 [History] Levothyroxine 12.5 mcg PO DAILY 06/18/20 [History] Levothyroxine [Synthroid] 50 mcg PO ACBREAKFAST 06/18/20 [History] Aspirin [Davey Chewable Aspirin] 81 mg PO DAILY 04/30/21 [History] Magnesium Oxide 250 mg PO DAILY 04/30/21 [History] Multivitamin [Multi-Vitamin Daily] 1 tab PO DAILY 04/30/21 [History] Docusate Sodium/Sennosides [Senokot-S] 1 each PO BID 30 Days #60 tablet 05/01/21 [Rx] Lactose-Reduced Food [Ensure Active High Protein] 414 ml PO TID 30 Days #90 liquid 05/01/21 [Rx] polyethylene glycoL 3350 [MiraLAX] 17 gm PO DAILY 30 Days #30 packet 05/01/21 [Rx] Past Medical History HEENT History: Reports: Impaired Vision, Other (See Below) Other HEENT History: WEARS CORRECTIVE LENS Cardiovascular History: Reports: High Cholesterol, Hypertension Respiratory History: Reports: None Gastrointestinal History: Reports: Chronic Constipation, Other (See Below) Other Gastrointestinal History: S/P HYPOKALEMIA. RIGHT INGUINAL HERNIA Genitourinary History: Reports: Other (See Below) Other Genitourinary History: HX OF URINARY CA Musculoskeletal History: Reports: Fracture Other Musculoskeletal History: HX OF FRACTURE IN RIGHT ARM Neurological History: Reports: None Psychiatric History: Reports: Anxiety Endocrine/Metabolic History: Reports: Hypothyroidism Hematologic History: Reports: None Immunologic History: Reports: Immunosuppression Oncologic (Cancer) History: Reports: Bladder Dermatologic History: Reports: Other (See Below) Other Dermatologic History: HX OF HERPES ZOSTER - Infectious Disease History Infectious Disease History: Reports: Influenza, Measles - Past Surgical History Head Surgeries/Procedures: Reports: None HEENT Surgical History: Reports: Adenoidectomy, Tonsillectomy Cardiovascular Surgical History: Reports: None Respiratory Surgical History: Reports: None GI Surgical History: Reports: Colonoscopy Male Surgical History: Reports: None Endocrine Surgical History: Reports: None Neurological Surgical History: Reports: None Musculoskeletal Surgical History: Reports: None Oncologic Surgical History: Reports: None Dermatological Surgical History: Reports: None Social & Family History - Family History Family Medical History: No Pertinent Family History - Caffeine Use Caffeine Use: Reports: Tea Other Caffeine Use: 'ONCE IN AWHILE' - Living Situation & Occupation Living situation: Reports: , with Family Occupation: Retired H&P Review of Systems - Review of Systems: Review Of Systems: See Below Free Text/Narrative: General: He denies any fever or chills CVS: Pt denies having any chest pain or edema lungs: Denies any cough, wheezes or dyspnea Pa: Denies having any nausea, vomiting or abdominal pain today MIGUEL: Denies having any dysuria, frequency, urgency or hematuria neuro: Denies having any seizures, tremors or focal weaknesses. Exam - Exam Exam: See Below - Vital Signs Vital Signs: Last Vital Signs Temp 98.7 F 05/02/21 14:31 Pulse 77 05/02/21 14:31 Resp 20 05/02/21 14:31 BP 151/88 H 05/02/21 14:31 Pulse Ox 100 05/02/21 14:31 - Exam Physical Exam Comments:: General: This is a frail elderly male who is awake and alert no distress HEENT: NC, AT, PERRLA, EOMI. CVS: S1S2 appreciated. RRR. no murmurs gallops Lungs are clear to auscultation bilaterally. No rales or wheezes. PA: Soft, nontender, bowel sounds are presents Extremities: no clubbing, cyanosis or edema. Peripheral pulses 2+ Neuro exam: patient moves all his extremities, sensation is intact, gait not examined Psych: patient has a flat affect - Patient Data Lab Results Last 24 hrs: Laboratory Results - last 24 hr 05/02/21 05/02/21 05/02/21 Range/Units 12:15 12:15 12:15 WBC 9.0 (5.0-10.0) 10^3/uL RBC 5.12 (4.6-6.2) 10^6/uL Hgb 15.7 (14.0-18.0) g/dL Hct 44.5 (40.0-54.0) % MCV 86.9 (80-100) fL MCH 30.7 (27.0-34.0) pg MCHC 35.3 H (33.0-35.0) g/dL Plt Count 205 (150-450) 10^3/uL Neut % (Auto) 74.4 (42.2-75.2) % Lymph % (Auto) 16.1 L (20.5-50.1) % Williamson % (Auto) 8.9 H (2-8) % Eos % (Auto) 0.4 L (1.0-3.0) % Baso % (Auto) 0.2 (0.0-1.0) % PT 11.0 (9.0-12.0) SEC INR 1.1 (0.9-1.2) APTT 25.2 (22.0-34.0) SEC Sodium 133 L (136-145) mmol/L Potassium 3.4 L (3.5-5.1) mmol/L Chloride 94 L (98-107) mmol/L Carbon Dioxide 28 (21-32) mmol/L Anion Gap 14.4 H (7-13) mEq/L BUN 19 H (7-18) mg/dL Creatinine 1.20 (0.70-1.30) mg/dL Est Cr Clr Drug Dosing TNP Estimated GFR (MDRD) 58 BUN/Creatinine Ratio 15.8 (No establ ref range) Glucose 109 H (70-99) mg/dL Calcium 8.7 (8.5-10.1) mg/dL Total Bilirubin 1.1 H (0.2-1.0) mg/dL AST 22 (15-37) U/L ALT 25 (16-63) U/L Alkaline Phosphatase 55 (46-116) U/L Troponin I High Sens 11 (<=76) pg/mL C-Reactive Protein 0.8 (0.0-0.9) mg/dL Total Protein 7.2 (6.4-8.2) g/dL Albumin 3.2 L (3.4-5.0) g/dL Globulin 4.0 Albumin/Globulin Ratio 0.80 Urine Color (YELLOW) Urine Appearance (CLEAR) Urine pH (5.0-9.0) Ur Specific [place] (1.005-1.030) Urine Protein (NEGATIVE) Urine Glucose (UA) (NEGATIVE) Urine Ketones (NEGATIVE) Urine Occult Blood (NEGATIVE) Urine Nitrite (NEGATIVE) Urine Bilirubin (NEGATIVE) Urine Urobilinogen (0.2-1.0) mg/dL Ur Leukocyte Esterase (NEGATIVE) Urine Opiates Screen (NEGATIVE) Ur Oxycodone Screen (NEGATIVE) Urine Methadone Screen (NEGATIVE) Ur Barbiturates Screen (NEGATIVE) U Tricyclic Antidepress (NEGATIVE) Ur Phencyclidine Scrn (NEGATIVE) Ur Amphetamine Screen (NEGATIVE) U Methamphetamines Scrn (NEGATIVE) Urine MDMA Screen (NEGATIVE) U Benzodiazepines Scrn (NEGATIVE) Urine Cocaine Screen (NEGATIVE) U Marijuana (THC) Screen (NEGATIVE) Ethyl Alcohol < 3 (0) mg/dL 05/02/21 05/02/21 Range/Units 14:10 14:10 WBC (5.0-10.0) 10^3/uL RBC (4.6-6.2) 10^6/uL Hgb (14.0-18.0) g/dL Hct (40.0-54.0) % MCV (80-100) fL MCH (27.0-34.0) pg MCHC (33.0-35.0) g/dL Plt Count (150-450) 10^3/uL Neut % (Auto) (42.2-75.2) % Lymph % (Auto) (20.5-50.1) % Williamson % (Auto) (2-8) % Eos % (Auto) (1.0-3.0) % Baso % (Auto) (0.0-1.0) % PT (9.0-12.0) SEC INR (0.9-1.2) APTT (22.0-34.0) SEC Sodium (136-145) mmol/L Potassium (3.5-5.1) mmol/L Chloride (98-107) mmol/L Carbon Dioxide (21-32) mmol/L Anion Gap (7-13) mEq/L BUN (7-18) mg/dL Creatinine (0.70-1.30) mg/dL Est Cr Clr Drug Dosing Estimated GFR (MDRD) BUN/Creatinine Ratio (No establ ref range) Glucose (70-99) mg/dL Calcium (8.5-10.1) mg/dL Total Bilirubin (0.2-1.0) mg/dL AST (15-37) U/L ALT (16-63) U/L Alkaline Phosphatase (46-116) U/L Troponin I High Sens (<=76) pg/mL C-Reactive Protein (0.0-0.9) mg/dL Total Protein (6.4-8.2) g/dL Albumin (3.4-5.0) g/dL Globulin Albumin/Globulin Ratio Urine Color Yellow (YELLOW) Urine Appearance Clear (CLEAR) Urine pH 7.0 (5.0-9.0) Ur Specific [place] 1.025 (1.005-1.030) Urine Protein Negative (NEGATIVE) Urine Glucose (UA) Negative (NEGATIVE) Urine Ketones Negative (NEGATIVE) Urine Occult Blood Negative (NEGATIVE) Urine Nitrite Negative (NEGATIVE) Urine Bilirubin Negative (NEGATIVE) Urine Urobilinogen 0.2 (0.2-1.0) mg/dL Ur Leukocyte Esterase Negative (NEGATIVE) Urine Opiates Screen Negative (NEGATIVE) Ur Oxycodone Screen Negative (NEGATIVE) Urine Methadone Screen Negative (NEGATIVE) Ur Barbiturates Screen Negative (NEGATIVE) U Tricyclic Antidepress Negative (NEGATIVE) Ur Phencyclidine Scrn Negative (NEGATIVE) Ur Amphetamine Screen Negative (NEGATIVE) U Methamphetamines Scrn Negative (NEGATIVE) Urine MDMA Screen Negative (NEGATIVE) U Benzodiazepines Scrn Negative (NEGATIVE) Urine Cocaine Screen Negative (NEGATIVE) U Marijuana (THC) Screen Negative (NEGATIVE) Ethyl Alcohol (0) mg/dL Result Diagrams: 05/02/21 12:15 05/02/21 12:15 - Problem List (1) FTT (failure to thrive) in adult SNOMED Code(s): 819400253 ICD Code: R62.7 - ADULT FAILURE TO THRIVE Status: Acute Current Visit: Yes (2) Weakness SNOMED Code(s): 83870986 ICD Code: R53.1 - WEAKNESS Status: Acute Current Visit: No (3) Dementia SNOMED Code(s): 91805425 ICD Code: F03.90 - UNSPECIFIED DEMENTIA WITHOUT BEHAVIORAL DISTURBANCE Status: Chronic Current Visit: No (4) HTN (hypertension) SNOMED Code(s): 17448854 ICD Code: I10 - ESSENTIAL (PRIMARY) HYPERTENSION Status: Acute Priority: Low Current Visit: No (5) Hypokalemia SNOMED Code(s): 75619619 ICD Code: E87.6 - HYPOKALEMIA Status: Acute Priority: Medium Current Visit: No Problem List Initiated/Reviewed/Updated: Yes Orders Last 24hrs: Active Orders 24 hr Category Date Time Status Patient Status [ADT] Routine ADT 05/02/21 13:50 Active Patient Status [ADT] Routine ADT 05/02/21 14:10 Active Blood Glucose Check, Bedside [RC] ONETIME Care 05/02/21 11:44 Active EKG 12 Lead [EKG Documentation Completion] [RC] STAT Care 05/02/21 11:44 Activ e NIH Stroke Scale [RC] ASDIRECTED Care 05/02/21 11:45 Active Oxygen Therapy [RC] PRN Care 05/02/21 14:10 Active Peripheral IV Care [RC] . DIRECTED Care 05/02/21 11:45 Active Up With Assistance [RC] ASDIRECTED Care 05/02/21 14:10 Active VTE/DVT Education [RC] PER UNIT ROUTINE Care 05/02/21 14:10 Active Vital Signs [RC] Q4H Care 05/02/21 14:10 Active OT Evaluation and Treatment [CONS] Routine Cons 05/02/21 14:10 Active PT Evaluation and Treatment [CONS] Routine Cons 05/02/21 14:10 Active Regular Diet [DIET] Diet 05/02/21 Dinner Active CULTURE BLOOD [BC] Stat Lab 05/02/21 12:15 Received CULTURE BLOOD [BC] Stat Lab 05/02/21 12:15 Received Enoxaparin [Lovenox] Med 05/02/21 15:00 Active 30 mg SUBCUT DAILY Ondansetron [Zofran ODT] Med 05/02/21 14:10 Active 4 mg PO Q4H PRN Potassium Chloride [Klor-Con 10] Med 05/02/21 15:00 Once 40 meq PO ONETIME ONE oxyCODONE Med 05/02/21 14:10 Active 5 mg PO Q4H PRN Blood Culture x2 Reflex Set [OM.PC] Stat Oth 05/02/21 11:44 Ordered Peripheral IV Insertion Adult [OM.PC] Stat Oth 05/02/21 11:45 Ordered Resuscitation Status Routine Resus Stat 05/02/21 14:10 Ordered Medication Orders Enoxaparin Sodium (Enoxaparin 30 Mg/0.3 Ml Syringe) 30 mg SUBCUT DAILY KAYA Ondansetron HCl (Ondansetron 4 Mg Tab.Dis) 4 mg PO Q4H PRN PRN Reason: nausea, able to take PO Oxycodone HCl (Oxycodone 5 Mg Tab) 5 mg PO Q4H PRN PRN Reason: Pain (moderate 4-6) Potassium Chloride (Potassium Chloride 10 Meq Tab.Er) 40 meq PO ONETIME ONE Stop: 05/02/21 15:01 Assessment/Plan Comment:: Adult failure to thrive Admit patient to the medical floor. We will order physical and occupational therapy Case management to assist with SNF placement. Will offer nutrition supplementation Generalized weakness and debility PT and OT to eval and treat Hypertension Resume novasc Will discontinue the thiazide diuretic and start metoprolol given that he is becoming dehydrated easily while on the the medication Hypothyroidism On synthroid. Full CODE STATUS As per patient wishes DVT prophylaxis Subcu Lovenox Patient will need more than 2 midnight stays before he can be accepted into a SNF. 05/08/21 patient requires prolonged p.t and ot and assist with toileting ,eating , med managment and cont monitoring of weight /vss and medical measures. weakness to point of needing one to assist but balance hearing and cognitive abilities limited. boh Onset of Symptoms: Reports: Gradual Duration of Symptoms: Reports: Week(s):, Chronic Improves with: Reports: Other (therapy ) Associated Symptoms: Reports: Confusion, Shortness of Breath - Related Data Allergies/Adverse Reactions: Allergies Allergy/AdvReac Type Severity Reaction Status Date / Time atorvastatin [From Lipitor] AdvReac Muscle Verified 05/08/21 09:17 Aches Home Medications: Home Meds Chlorthalidone 25 mg PO DAILY 11/11/17 [History] Pembrolizumab [Keytruda] 1 dose IV .[id number] 11/11/17 [History] Levothyroxine 12.5 mcg PO ACBREAKFAST 06/18/20 [History] Levothyroxine [Synthroid] 50 mcg PO ACBREAKFAST 06/18/20 [History] Aspirin [Davey Chewable Aspirin] 81 mg PO DAILY 04/30/21 [History] Magnesium Oxide 250 mg PO DAILY 04/30/21 [History] Multivitamin [Multi-Vitamin Daily] 1 tab PO DAILY 04/30/21 [History] Docusate Sodium/Sennosides [Senokot-S] 1 each PO BID 30 Days #60 tablet 05/01/21 [Rx] Lactose-Reduced Food [Ensure Active High Protein] 414 ml PO TID 30 Days #90 liquid 05/01/21 [Rx] polyethylene glycoL 3350 [MiraLAX] 17 gm PO DAILY 30 Days #30 packet 05/01/21 [Rx] Docusate Sodium/Sennosides [Senna Plus] 1 tab PO BID tablet 05/08/21 [Rx] Levothyroxine 12.5 mcg PO ACBREAKFAST tablet 05/08/21 [Rx] Multivitamin/Iron/Folic Acid [One Daily Multivitamin-Iron Tb] 1 each PO ACLUNCH #30 tablet 05/08/21 [Rx] Patient's Own Medication [Ptom] 0 each PO BID each 05/08/21 [Rx] Sennosides [Evac-U-Gen] 8.6 mg PO ACLUNCH 30 Days #30 tablet 05/08/21 [Rx] Thiamine HCl [Vitamin B-1] 50 mg PO ACLUNCH #30 tablet 05/08/21 [Rx] amLODIPine [Norvasc] 7.5 mg PO DAILY 05/08/21 [History] amLODIPine [Norvasc] 7.5 mg PO DAILY tablet 05/08/21 [Rx] Past Medical History HEENT History: Reports: Impaired Vision, Other (See Below) Other HEENT History: WEARS CORRECTIVE LENS Cardiovascular History: Reports: High Cholesterol, Hypertension Respiratory History: Reports: None Gastrointestinal History: Reports: Chronic Constipation, Other (See Below) Other Gastrointestinal History: S/P HYPOKALEMIA. RIGHT INGUINAL HERNIA Genitourinary History: Reports: Other (See Below) Other Genitourinary History: HX OF URINARY CA Musculoskeletal History: Reports: Fracture Other Musculoskeletal History: HX OF FRACTURE IN RIGHT ARM Neurological History: Reports: None Psychiatric History: Reports: Anxiety Endocrine/Metabolic History: Reports: Hypothyroidism Hematologic History: Reports: None Immunologic History: Reports: Immunosuppression Oncologic (Cancer) History: Reports: Bladder Dermatologic History: Reports: Other (See Below) Other Dermatologic History: HX OF HERPES ZOSTER - Infectious Disease History Infectious Disease History: Reports: Influenza, Measles - Past Surgical History Head Surgeries/Procedures: Reports: None HEENT Surgical History: Reports: Adenoidectomy, Tonsillectomy Cardiovascular Surgical History: Reports: None Respiratory Surgical History: Reports: None GI Surgical History: Reports: Colonoscopy Male Surgical History: Reports: None Endocrine Surgical History: Reports: None Neurological Surgical History: Reports: None Musculoskeletal Surgical History: Reports: None Oncologic Surgical History: Reports: None Dermatological Surgical History: Reports: None Social & Family History - Family History Family Medical History: No Pertinent Family History - Tobacco Use Tobacco Use Status *Q: Never Tobacco User - Caffeine Use Caffeine Use: Reports: Tea Other Caffeine Use: 'ONCE IN AWHILE' - Recreational Drug Use Recreational Drug Use: No - Living Situation & Occupation Living situation: Reports: , with Family Occupation: Retired H&P Review of Systems - Review of Systems: Review Of Systems: See Below General: Reports: No Symptoms HEENT: Reports: No Symptoms Pulmonary: Reports: Shortness of Breath Cardiovascular: Reports: Other (balance and weakness) Gastrointestinal: Reports: Anorexia Genitourinary: Reports: No Symptoms Musculoskeletal: Reports: No Symptoms Skin: Reports: No Symptoms Psychiatric: Reports: No Symptoms, Confusion Neurological: Reports: No Symptoms Hematologic/Lymphatic: Reports: No Symptoms Immunologic: Reports: No Symptoms Exam - Exam Exam: See Below - Vital Signs Vital Signs: Last Vital Signs Temp 36.7 C 05/08/21 07:43 Pulse 76 05/08/21 07:43 Resp 20 05/08/21 07:43 BP 150/60 H 05/08/21 08:20 Pulse Ox 98 05/08/21 07:43 Weight: 60.963 kg - Exam General: Alert, Oriented, 4 HEENT: PERRLA, Hearing Intact, Mucosa Moist & [place], Nares Patent, Normal Nasal Septum, Posterior Pharynx Clear, Conjunctiva Clear, EOMI, EACs Clear, TMs Clear Neck: Supple, Trachea Midline, 2 Lungs: Clear to Auscultation, Normal Respiratory Effort Cardiovascular: Regular Rate, Regular Rhythm GI/Abdominal Exam: Normal Bowel Sounds, Soft, Non-Tender, No Organomegaly, No D istention, No Abnormal Bruit, No Mass, Pelvis Stable (Male) Exam: No Hernia, Normal Inspection, Normal Prostate, Circumcised Rectal (Males) Exam: Normal Exam, Normal Rectal Tone, Prostate Normal Back Exam: Normal Inspection, Full Range of Motion, NT Extremities: Normal Inspection, Normal Range of Motion, Non-Tender, No Pedal Edema, Normal Capillary Refill Skin: Warm, Dry, Intact Neurological: Cranial Nerves Intact, Reflexes Equal Bilateral Neuro Extensive - Mental Status: Alert, Oriented x3, Normal Mood/Affect, Normal Cognition Neuro Extensive - Motor, Sensory, Reflexes: CN II-XII Intact, Normal Gait, Normal Reflexes Psychiatric: Alert, Normal Affect, Normal Mood - Patient Data Result Diagrams: 05/02/21 12:15 05/04/21 14:28 - Problem List (1) FTT (failure to thrive) in adult SNOMED Code(s): 111155360 ICD Code: R62.7 - ADULT FAILURE TO THRIVE Status: Acute Priority: Medium Onset Date: ~05/01/21 (2) Constipation SNOMED Code(s): 91328163 ICD Code: K59.00 - CONSTIPATION, UNSPECIFIED Status: Chronic Priority: Medium Onset Date: ~05/03/21 Qualifiers: Constipation type: slow transit constipation Qualified Code(s): K59.01 - Slow transit constipation (3) Severe protein-calorie malnutrition SNOMED Code(s): 126669357, 433776521, 490265199 ICD Code: E43 - UNSPECIFIED SEVERE PROTEIN-CALORIE MALNUTRITION Status: Chronic Priority: Medium Onset Date: ~05/01/21 (4) Altered mental status SNOMED Code(s): 756305849 ICD Code: R41.82 - ALTERED MENTAL STATUS, UNSPECIFIED Status: Acute Priority: Medium Onset Date: ~05/01/21 Problem Details: delerioum cleared but still mod blankness and confusion Qualifiers: Altered mental status type: disorientation Qualified Code(s): R41.0 - Disorientation, unspecified (5) HTN (hypertension) SNOMED Code(s): 66845794 ICD Code: I10 - ESSENTIAL (PRIMARY) HYPERTENSION Status: Acute Priority: Low Onset Date: ~05/01/21 (6) Hypokalemia SNOMED Code(s): 05992620 ICD Code: E87.6 - HYPOKALEMIA Status: Acute Priority: Medium Onset Date: ~05/01/21 Problem Details: resolved Problem List Initiated/Reviewed/Updated: Yes Assessment/Plan Comment:: Adult failure to thrive/Severe protein calorie malnutrition Consult to physical therapy and Occupational Therapy, consult social work for placement. Patient is agreeable for placement. Appreciate director social input. We will continue having ongoing discussions with daughter about sources for placement. Continue nutritional supplementation. Generalized weakness and debility PT and OT to eval and treat Hypertension continue novasc 7.5 discontinued thiazide diuretic as patient appears to have difficulty maintaining volume status. Hyponatremia Mild, improved with fluids, likely secondary to hypovolemic hyponatremia, sodium 132 05/05/21 no need for further monitoring given patient's increased intake Thiazide diuretic could have been contributing - discontinued Hypothyroidism Continue Synthroid Chronic constipation Continue with fiber and laxative Encourage fluid intake Full CODE STATUS As per patient wishes DVT prophylaxis Subcu Lovenox Patient is now medically stable for discharge, awaiting placement. med list reviewed and will cont current meds and treatments for weakness and balance problems . patient high risk for fall sec to cogn. impairment and should have slums done ; but needs assistance and unlikely to get to point of return to home. snf needed. boh
== END 2021-05-08 11:39 | disposition swing bed (61) | DRG 947 ==
LOC: DL.ED 11:41 → DL.MS 13:50
PROVIDERS: ADMIT Hospitalist; ATTEND Pediatrics
DX: R53.1 Weakness (principal); R41.0 Disorientation, unspecified; E43 Unspecified severe protein-calorie malnutrition; G93.41 Metabolic encephalopathy; Z68.1 Body mass index [BMI] 19.9 or less, adult; E87.1 Hypo-osmolality and hyponatremia; E87.6 Hypokalemia; F03.90 Unspecified dementia, unspecified severity, without behavioral disturbance, psychotic disturbance, mood disturbance, and anxiety; D84.9 Immunodeficiency, unspecified; C67.9 Malignant neoplasm of bladder, unspecified; Z88.8 Allergy status to other drugs, medicaments and biological substances; Z79.82 Long term (current) use of aspirin; E86.0 Dehydration; Z79.899 Other long term (current) drug therapy; I10 Essential (primary) hypertension; E03.9 Hypothyroidism, unspecified; K59.01 Slow transit constipation; F41.9 Anxiety disorder, unspecified; H54.7 Unspecified visual loss; E78.00 Pure hypercholesterolemia, unspecified; Z20.822 Contact with and (suspected) exposure to COVID-19; E78.5 Hyperlipidemia, unspecified; K59.09 Other constipation; Z87.81 Personal history of (healed) traumatic fracture; Z98.890 Other specified postprocedural states; Z90.89 Acquired absence of other organs; Z79.890 Hormone replacement therapy
CPT/HCPCS: 36415; 70450; 80048; 80053; 80305-QW; 80307; 81003; 82947; 84132; 84295; 84484; 85025; 85610; 85730; 86140; 87040; 97166-GO; 99285-25; A9270-GY; J1650; J7040; U0002

== ENCOUNTER 2021-05-08 09:08 | Inpatient (IN) | payer MEDICARE, BC ==
[2021-05-08] MEDS ORDERED: Bisacodyl 10 MG Supp RECTAL PRN (11:11)
[2021-05-08] MEDS ORDERED: Ondansetron 4 MG Tab.DIS PO PRN (11:11)
[2021-05-08] MEDS: Potassium Chloride 10 MEQ Tab.ER PO SCH (18:13)
[2021-05-08] MEDS: Thiamine 100 MG Tab PO SCH (20:38)
[2021-05-08] MEDS: PSYLLIUM HUSK PO SCH (21:46)
[2021-05-09] MEDS: Levothyroxine 25 MCG Tab PO SCH (06:31)
[2021-05-09] MEDS: Levothyroxine 50 MCG Tab PO SCH (06:31)
[2021-05-09] MEDS: Potassium Chloride 10 MEQ Tab.ER PO SCH ×2 (08:12→17:08)
[2021-05-09] MEDS: amLODIPine 5 MG Tab PO SCH (08:12)
[2021-05-09] MEDS: Aspirin 81 MG Tab.Chew PO SCH (08:12)
[2021-05-09] MEDS: Multivitamin Tab PO SCH (08:12)
[2021-05-09] MEDS: Enoxaparin 40 MG/0.4 ML Syringe SUBCUT SCH (08:13)
[2021-05-09] MEDS: Polyethylene Glycol 3350 Powder 17 GM Packet PO SCH (08:13)
[2021-05-09] MEDS: PSYLLIUM HUSK PO SCH (08:16)
[2021-05-09] MEDS: Thiamine 100 MG Tab PO SCH (20:53)
[2021-05-10] MEDS: Levothyroxine 50 MCG Tab PO SCH (05:52)
[2021-05-10] MEDS: Levothyroxine 25 MCG Tab PO SCH (05:53)
[2021-05-10] MEDS: Polyethylene Glycol 3350 Powder 17 GM Packet PO SCH (08:39)
[2021-05-10] MEDS: Enoxaparin 40 MG/0.4 ML Syringe SUBCUT SCH (08:40)
[2021-05-10] MEDS: Multivitamin Tab PO SCH (08:41)
[2021-05-10] MEDS: Potassium Chloride 10 MEQ Tab.ER PO SCH ×2 (08:41→17:14)
[2021-05-10] MEDS: Aspirin 81 MG Tab.Chew PO SCH (08:41)
[2021-05-10] MEDS: amLODIPine 5 MG Tab PO SCH (08:41)
[2021-05-10] MEDS: PSYLLIUM HUSK PO SCH ×2 (08:50→17:14)
--- NOTE | 2021-05-10 14:01 | PCM.HP ---
H&P History of Present Illness - General Date of Service: 05/09/21 Admit Problem/Dx: Generalized weakness Source of Information: Patient, Family, Provider History Limitations: Reports: Altered Mental Status, Physical Impairment - History of Present Illness Initial Comments - Free Text/Narative: [facility] Admission History & Physical Patient Name: BLAYNE FORBES Date of : 1935 Patient Status: Inpatient Attending Provider: Marc Varghese Date: 05/02/21 14:41 Initialization Date: 05/02/21 14:41 H&P History of Present Illness - General Date of Service: 05/02/21 Admit Problem/Dx: Admission Diagnosis/Problem Admission Diagnosis/Problem Failure to thrive, Generalized weakness. - History of Present Illness Other HPI/Comments: Mr. Forbes is an 86-year-old male with history of dementia who was just admitted to the hospital on 04/30/2021 with multiple issues that included generalized weakness, malaise, hypokalemia ,dehydration, nausea, anorexia and constipation. The patient was kept in the hospital overnight under observation status and received IV hydration, electrolyte replacement, nutritional supplementation, laxatives, PT and OT treatments. Yesterday he felt better and requested to go home. He was discharged home but later in the evening he again got weak and was unable to get out of bed on his own. This morning his /significant other had trouble getting him out of bed and called the EMS to bring him back to the hospital. As per the , the patient had some chicken n oodle soup last night but has not eaten anything today. The and the two daughters would like for him to be placed at a group home facility. He otherwise denies having any complaints such as fevers, chills, malaise or any other issues. He is able to respond to a few questions on his own but generally does not spontaneously volunteer much of any information. - Related Data Allergies/Adverse Reactions: Allergies Allergy/AdvReac Type Severity Reaction Status Date / Time atorvastatin [From Lipitor] AdvReac Muscle Verified 04/29/21 20:57 Aches Home Medications: Home Meds Chlorthalidone 25 mg PO DAILY 11/11/17 [History] Pembrolizumab [Keytruda] 1 dose IV .[id number] 11/11/17 [History] Potassium Chloride [Klor-Con M20] 40 meq PO BID 11/11/17 [History] amLODIPine [Norvasc] 7.5 mg PO DAILY 11/11/17 [History] Levothyroxine 12.5 mcg PO DAILY 06/18/20 [History] Levothyroxine [Synthroid] 50 mcg PO ACBREAKFAST 06/18/20 [History] Aspirin [Davey Chewable Aspirin] 81 mg PO DAILY 04/30/21 [History] Magnesium Oxide 250 mg PO DAILY 04/30/21 [History] Multivitamin [Multi-Vitamin Daily] 1 tab PO DAILY 04/30/21 [History] Docusate Sodium/Sennosides [Senokot-S] 1 each PO BID 30 Days #60 tablet 05/01/21 [Rx] Lactose-Reduced Food [Ensure Active High Protein] 414 ml PO TID 30 Days #90 liquid 05/01/21 [Rx] polyethylene glycoL 3350 [MiraLAX] 17 gm PO DAILY 30 Days #30 packet 05/01/21 [Rx] Past Medical History HEENT History: Reports: Impaired Vision, Other (See Below) Other HEENT History: WEARS CORRECTIVE LENS Cardiovascular History: Reports: High Cholesterol, Hypertension Respiratory History: Reports: None Gastrointestinal History: Reports: Chronic Constipation, Other (See Below) Other Gastrointestinal History: S/P HYPOKALEMIA. RIGHT INGUINAL HERNIA Genitourinary History: Reports: Other (See Below) Other Genitourinary History: HX OF URINARY CA Musculoskeletal History: Reports: Fracture Other Musculoskeletal History: HX OF FRACTURE IN RIGHT ARM Neurological History: Reports: None Psychiatric History: Reports: Anxiety Endocrine/Metabolic History: Reports: Hypothyroidism Hematologic History: Reports: None Immunologic History: Reports: Immunosuppression Oncologic (Cancer) History: Reports: Bladder Dermatologic History: Reports: Other (See Below) Other Dermatologic History: HX OF HERPES ZOSTER - Infectious Disease History Infectious Disease History: Reports: Influenza, Measles - Past Surgical History Head Surgeries/Procedures: Reports: None HEENT Surgical History: Reports: Adenoidectomy, Tonsillectomy Cardiovascular Surgical History: Reports: None Respiratory Surgical History: Reports: None GI Surgical History: Reports: Colonoscopy Male Surgical History: Reports: None Endocrine Surgical History: Reports: None Neurological Surgical History: Reports: None Musculoskeletal Surgical History: Reports: None Oncologic Surgical History: Reports: None Dermatological Surgical History: Reports: None Social & Family History - Family History Family Medical History: No Pertinent Family History - Caffeine Use Caffeine Use: Reports: Tea Other Caffeine Use: 'ONCE IN AWHILE' - Living Situation & Occupation Living situation: Reports: , with Family Occupation: Retired H&P Review of Systems - Review of Systems: Review Of Systems: See Below Free Text/Narrative: General: He denies any fever or chills CVS: Pt denies having any chest pain or edema lungs: Denies any cough, wheezes or dyspnea Pa: Denies having any nausea, vomiting or abdominal pain today MIGUEL: Denies having any dysuria, frequency, urgency or hematuria neuro: Denies having any seizures, tremors or focal weaknesses. Exam - Exam Exam: See Below - Vital Signs Vital Signs: Last Vital Signs Temp 98.7 F 05/02/21 14:31 Pulse 77 05/02/21 14:31 Resp 20 05/02/21 14:31 BP 151/88 H 05/02/21 14:31 Pulse Ox 100 05/02/21 14:31 - Exam Physical Exam Comments:: General: This is a frail elderly male who is awake and alert no distress HEENT: NC, AT, PERRLA, EOMI. CVS: S1S2 appreciated. RRR. no murmurs gallops Lungs are clear to auscultation bilaterally. No rales or wheezes. PA: Soft, nontender, bowel sounds are presents Extremities: no clubbing, cyanosis or edema. Peripheral pulses 2+ Neuro exam: patient moves all his extremities, sensation is intact, gait not examined Psych: patient has a flat affect - Patient Data Lab Results Last 24 hrs: Laboratory Results - last 24 hr 05/02/21 05/02/21 05/02/21 Range/Units 12:15 12:15 12:15 WBC 9.0 (5.0-10.0) 10^3/uL RBC 5.12 (4.6-6.2) 10^6/uL Hgb 15.7 (14.0-18.0) g/dL Hct 44.5 (40.0-54.0) % MCV 86.9 (80-100) fL MCH 30.7 (27.0-34.0) pg MCHC 35.3 H (33.0-35.0) g/dL Plt Count 205 (150-450) 10^3/uL Neut % (Auto) 74.4 (42.2-75.2) % Lymph % (Auto) 16.1 L (20.5-50.1) % [place] % (Auto) 8.9 H (2-8) % Eos % (Auto) 0.4 L (1.0-3.0) % Baso % (Auto) 0.2 (0.0-1.0) % PT 11.0 (9.0-12.0) SEC INR 1.1 (0.9-1.2) APTT 25.2 (22.0-34.0) SEC Sodium 133 L (136-145) mmol/L Potassium 3.4 L (3.5-5.1) mmol/L Chloride 94 L (98-107) mmol/L Carbon Dioxide 28 (21-32) mmol/L Anion Gap 14.4 H (7-13) mEq/L BUN 19 H (7-18) mg/dL Creatinine 1.20 (0.70-1.30) mg/dL Est Cr Clr Drug Dosing TNP Estimated GFR (MDRD) 58 BUN/Creatinine Ratio 15.8 (No establ ref range) Glucose 109 H (70-99) mg/dL Calcium 8.7 (8.5-10.1) mg/dL Total Bilirubin 1.1 H (0.2-1.0) mg/dL AST 22 (15-37) U/L ALT 25 (16-63) U/L Alkaline Phosphatase 55 (46-116) U/L Troponin I High Sens 11 (<=76) pg/mL C-Reactive Protein 0.8 (0.0-0.9) mg/dL Total Protein 7.2 (6.4-8.2) g/dL Albumin 3.2 L (3.4-5.0) g/dL Globulin 4.0 Albumin/Globulin Ratio 0.80 Urine Color (YELLOW) Urine Appearance (CLEAR) Urine pH (5.0-9.0) Ur Specific [place] (1.005-1.030) Urine Protein (NEGATIVE) Urine Glucose (UA) (NEGATIVE) Urine Ketones (NEGATIVE) Urine Occult Blood (NEGATIVE) Urine Nitrite (NEGATIVE) Urine Bilirubin (NEGATIVE) Urine Urobilinogen (0.2-1.0) mg/dL Ur Leukocyte Esterase (NEGATIVE) Urine Opiates Screen (NEGATIVE) Ur Oxycodone Screen (NEGATIVE) Urine Methadone Screen (NEGATIVE) Ur Barbiturates Screen (NEGATIVE) U Tricyclic Antidepress (NEGATIVE) Ur Phencyclidine Scrn (NEGATIVE) Ur Amphetamine Screen (NEGATIVE) U Methamphetamines Scrn (NEGATIVE) Urine MDMA Screen (NEGATIVE) U Benzodiazepines Scrn (NEGATIVE) Urine Cocaine Screen (NEGATIVE) U Marijuana (THC) Screen (NEGATIVE) Ethyl Alcohol < 3 (0) mg/dL 05/02/21 05/02/21 Range/Units 14:10 14:10 WBC (5.0-10.0) 10^3/uL RBC (4.6-6.2) 10^6/uL Hgb (14.0-18.0) g/dL Hct (40.0-54.0) % MCV (80-100) fL MCH (27.0-34.0) pg MCHC (33.0-35.0) g/dL Plt Count (150-450) 10^3/uL Neut % (Auto) (42.2-75.2) % Lymph % (Auto) (20.5-50.1) % [place] % (Auto) (2-8) % Eos % (Auto) (1.0-3.0) % Baso % (Auto) (0.0-1.0) % PT (9.0-12.0) SEC INR (0.9-1.2) APTT (22.0-34.0) SEC Sodium (136-145) mmol/L Potassium (3.5-5.1) mmol/L Chloride (98-107) mmol/L Carbon Dioxide (21-32) mmol/L Anion Gap (7-13) mEq/L BUN (7-18) mg/dL Creatinine (0.70-1.30) mg/dL Est Cr Clr Drug Dosing Estimated GFR (MDRD) BUN/Creatinine Ratio (No establ ref range) Glucose (70-99) mg/dL Calcium (8.5-10.1) mg/dL Total Bilirubin (0.2-1.0) mg/dL AST (15-37) U/L ALT (16-63) U/L Alkaline Phosphatase (46-116) U/L Troponin I High Sens (<=76) pg/mL C-Reactive Protein (0.0-0.9) mg/dL Total Protein (6.4-8.2) g/dL Albumin (3.4-5.0) g/dL Globulin Albumin/Globulin Ratio Urine Color Yellow (YELLOW) Urine Appearance Clear (CLEAR) Urine pH 7.0 (5.0-9.0) Ur Specific [place] 1.025 (1.005-1.030) Urine Protein Negative (NEGATIVE) Urine Glucose (UA) Negative (NEGATIVE) Urine Ketones Negative (NEGATIVE) Urine Occult Blood Negative (NEGATIVE) Urine Nitrite Negative (NEGATIVE) Urine Bilirubin Negative (NEGATIVE) Urine Urobilinogen 0.2 (0.2-1.0) mg/dL Ur Leukocyte Esterase Negative (NEGATIVE) Urine Opiates Screen Negative (NEGATIVE) Ur Oxycodone Screen Negative (NEGATIVE) Urine Methadone Screen Negative (NEGATIVE) Ur Barbiturates Screen Negative (NEGATIVE) U Tricyclic Antidepress Negative (NEGATIVE) Ur Phencyclidine Scrn Negative (NEGATIVE) Ur Amphetamine Screen Negative (NEGATIVE) U Methamphetamines Scrn Negative (NEGATIVE) Urine MDMA Screen Negative (NEGATIVE) U Benzodiazepines Scrn Negative (NEGATIVE) Urine Cocaine Screen Negative (NEGATIVE) U Marijuana (THC) Screen Negative (NEGATIVE) Ethyl Alcohol (0) mg/dL Result Diagrams: 05/02/21 12:15 05/02/21 12:15 - Problem List (1) FTT (failure to thrive) in adult SNOMED Code(s): 251088100 ICD Code: R62.7 - ADULT FAILURE TO THRIVE Status: Acute Current Visit: Yes (2) Weakness SNOMED Code(s): 15145035 ICD Code: R53.1 - WEAKNESS Status: Acute Current Visit: No (3) Dementia SNOMED Code(s): 37983369 ICD Code: F03.90 - UNSPECIFIED DEMENTIA WITHOUT BEHAVIORAL DISTURBANCE Status: Chronic Current Visit: No (4) HTN (hypertension) SNOMED Code(s): 89384111 ICD Code: I10 - ESSENTIAL (PRIMARY) HYPERTENSION Status: Acute Priority: Low Current Visit: No (5) Hypokalemia SNOMED Code(s): 41630993 ICD Code: E87.6 - HYPOKALEMIA Status: Acute Priority: Medium Current Visit: No Problem List Initiated/Reviewed/Updated: Yes Orders Last 24hrs: Active Orders 24 hr Category Date Time Status Patient Status [ADT] Routine ADT 05/02/21 13:50 Active Patient Status [ADT] Routine ADT 05/02/21 14:10 Active Blood Glucose Check, Bedside [RC] ONETIME Care 05/02/21 11:44 Active EKG 12 Lead [EKG Documentation Completion] [RC] STAT Care 05/02/21 11:44 Active NIH Stroke Scale [RC] ASDIRECTED Care 05/02/21 11:45 Active Oxygen Therapy [RC] PRN Care 05/02/21 14:10 Active Peripheral IV Care [RC] . DIRECTED Care 05/02/21 11:45 Active Up With Assistance [RC] ASDIRECTED Care 05/02/21 14:10 Active VTE/DVT Education [RC] PER UNIT ROUTINE Care 05/02/21 14:10 Active Vital Signs [RC] Q4H Care 05/02/21 14:10 Active OT Evaluation and Treatment [CONS] Routine Cons 05/02/21 14:10 Active PT Evaluation and Treatment [CONS] Routine Cons 05/02/21 14:10 Active Regular Diet [DIET] Diet 05/02/21 Dinner Active CULTURE BLOOD [BC] Stat Lab 05/02/21 12:15 Received CULTURE BLOOD [BC] Stat Lab 05/02/21 12:15 Received Enoxaparin [Lovenox] Med 05/02/21 15:00 Active 30 mg SUBCUT DAILY Ondansetron [Zofran ODT] Med 05/02/21 14:10 Active 4 mg PO Q4H PRN Potassium Chloride [Klor-Con 10] Med 05/02/21 15:00 Once 40 meq PO ONETIME ONE oxyCODONE Med 05/02/21 14:10 Active 5 mg PO Q4H PRN Blood Culture x2 Reflex Set [OM.PC] Stat Oth 05/02/21 11:44 Ordered Peripheral IV Insertion Adult [OM.PC] Stat Oth 05/02/21 11:45 Ordered Resuscitation Status Routine Resus Stat 05/02/21 14:10 Ordered Medication Orders Enoxaparin Sodium (Enoxaparin 30 Mg/0.3 Ml Syringe) 30 mg SUBCUT DAILY KAYA Ondansetron HCl (Ondansetron 4 Mg Tab.Dis) 4 mg PO Q4H PRN PRN Reason: nausea, able to take PO Oxycodone HCl (Oxycodone 5 Mg Tab) 5 mg PO Q4H PRN PRN Reason: Pain (moderate 4-6) Potassium Chloride (Potassium Chloride 10 Meq Tab.Er) 40 meq PO ONETIME ONE Stop: 05/02/21 15:01 Assessment/Plan Comment:: Adult failure to thrive Admit patient to the medical floor. We will order physical and occupational therapy Case management to assist with SNF placement. Will offer nutrition supplementation Generalized weakness and debility PT and OT to eval and treat Hypertension Resume novasc Will discontinue the thiazide diuretic and start metoprolol given that he is becoming dehydrated easily while on the the medication Hypothyroidism On synthroid. Full CODE STATUS As per patient wishes DVT prophylaxis Subcu Lovenox Patient will need more than 2 midnight stays before he can be accepted into a SNF. 05/08/21 patient requires prolonged p.t and ot and assist with toileting ,eating , med managment and cont monitoring of weight /vss and medical measures. weakness to point of needing one to assist but balance hearing and cognitive abilities limited. boh Onset of Symptoms: Reports: Gradual Duration of Symptoms: Reports: Week(s):, Chronic Improves with: Reports: Other (therapy ) Associated Symptoms: Reports: Confusion, Shortness of Breath - Related Data Allergies/Adverse Reactions: Allergies Allergy/AdvReac Type Severity Reaction Status Date / Time atorvastatin [From Lipitor] AdvReac Muscle Verified 05/08/21 09:17 Aches Home Medications: Home Meds Chlorthalidone 25 mg PO DAILY 11/11/17 [History] Pembrolizumab [Keytruda] 1 dose IV .[id number] 11/11/17 [History] Levothyroxine 12.5 mcg PO ACBREAKFAST 06/18/20 [History] Levothyroxine [Synthroid] 50 mcg PO ACBREAKFAST 06/18/20 [History] Aspirin [Davey Chewable Aspirin] 81 mg PO DAILY 04/30/21 [History] Magnesium Oxide 250 mg PO DAILY 04/30/21 [History] Multivitamin [Multi-Vitamin Daily] 1 tab PO DAILY 04/30/21 [History] Docusate Sodium/Sennosides [Senokot-S] 1 each PO BID 30 Days #60 tablet 05/01/21 [Rx] Lactose-Reduced Food [Ensure Active High Protein] 414 ml PO TID 30 Days #90 liquid 05/01/21 [Rx] polyethylene glycoL 3350 [MiraLAX] 17 gm PO DAILY 30 Days #30 packet 05/01/21 [Rx] Docusate Sodium/Sennosides [Senna Plus] 1 tab PO BID tablet 05/08/21 [Rx] Levothyroxine 12.5 mcg PO ACBREAKFAST tablet 05/08/21 [Rx] Multivitamin/Iron/Folic Acid [One Daily Multivitamin-Iron Tb] 1 each PO ACLUNCH #30 tablet 05/08/21 [Rx] Patient's Own Medication [Ptom] 0 each PO BID each 05/08/21 [Rx] Sennosides [Evac-U-Gen] 8.6 mg PO ACLUNCH 30 Days #30 tablet 05/08/21 [Rx] Thiamine HCl [Vitamin B-1] 50 mg PO ACLUNCH #30 tablet 05/08/21 [Rx] amLODIPine [Norvasc] 7.5 mg PO DAILY 05/08/21 [History] amLODIPine [Norvasc] 7.5 mg PO DAILY tablet 05/08/21 [Rx] Past Medical History HEENT History: Reports: Impaired Vision, Other (See Below) Other HEENT History: WEARS CORRECTIVE LENS Cardiovascular History: Reports: High Cholesterol, Hypertension Respiratory History: Reports: None Gastrointestinal History: Reports: Chronic Constipation, Other (See Below) Other Gastrointestinal History: S/P HYPOKALEMIA. RIGHT INGUINAL HERNIA Genitourinary History: Reports: Other (See Below) Other Genitourinary History: HX OF URINARY CA Musculoskeletal History: Reports: Fracture Other Musculoskeletal History: HX OF FRACTURE IN RIGHT ARM Neurological History: Reports: None Psychiatric History: Reports: Anxiety Endocrine/Metabolic History: Reports: Hypothyroidism Hematologic History: Reports: None Immunologic History: Reports: Immunosuppression Oncologic (Cancer) History: Reports: Bladder Dermatologic History: Reports: Other (See Below) Other Dermatologic History: HX OF HERPES ZOSTER - Infectious Disease History Infectious Disease History: Reports: Influenza, Measles - Past Surgical History Head Surgeries/Procedures: Reports: None HEENT Surgical History: Reports: Adenoidectomy, Tonsillectomy Cardiovascular Surgical History: Reports: None Respiratory Surgical History: Reports: None GI Surgical History: Reports: Colonoscopy Male Surgical History: Reports: None Endocrine Surgical History: Reports: None Neurological Surgical History: Reports: None Musculoskeletal Surgical History: Reports: None Oncologic Surgical History: Reports: None Dermatological Surgical History: Reports: None Social & Family History - Family History Family Medical History: No Pertinent Family History - Tobacco Use Tobacco Use Status *Q: Never Tobacco User - Caffeine Use Caffeine Use: Reports: Tea Other Caffeine Use: 'ONCE IN AWHILE' - Recreational Drug Use Recreational Drug Use: No - Living Situation & Occupation Living situation: Reports: , with Family Occupation: Retired H&P Review of Systems - Review of Systems: Review Of Systems: See Below General: Reports: No Symptoms HEENT: Reports: No Symptoms Pulmonary: Reports: Shortness of Breath Cardiovascular: Reports: Other (balance and weakness) Gastrointestinal: Reports: Anorexia Genitourinary: Reports: No Symptoms Musculoskeletal: Reports: No Symptoms Skin: Reports: No Symptoms Psychiatric: Reports: No Symptoms, Confusion Neurological: Reports: No Symptoms Hematologic/Lymphatic: Reports: No Symptoms Immunologic: Reports: No Symptoms Exam - Exam Exam: See Below - Vital Signs Vital Signs: Last Vital Signs Temp 36.7 C 05/08/21 07:43 Pulse 76 05/08/21 07:43 Resp 20 05/08/21 07:43 BP 150/60 H 05/08/21 08:20 Pulse Ox 98 05/08/21 07:43 Weight: 60.963 kg - Exam General: Alert, Oriented, 4 HEENT: PERRLA, Hearing Intact, Mucosa Moist & [place], Nares Patent, Normal Nasal Septum, Posterior Pharynx Clear, Conjunctiva Clear, EOMI, EACs Clear, TMs Clear Neck: Supple, Trachea Midline, 2 Lungs: Clear to Auscultation, Normal Respiratory Effort Cardiovascular: Regular Rate, Regular Rhythm GI/Abdominal Exam: Normal Bowel Sounds, Soft, Non-Tender, No Organomegaly, No D istention, No Abnormal Bruit, No Mass, Pelvis Stable (Male) Exam: No Hernia, Normal Inspection, Normal Prostate, Circumcised Rectal (Males) Exam: Normal Exam, Normal Rectal Tone, Prostate Normal Back Exam: Normal Inspection, Full Range of Motion, NT Extremities: Normal Inspection, Normal Range of Motion, Non-Tender, No Pedal Edema, Normal Capillary Refill Skin: Warm, Dry, Intact Neurological: Cranial Nerves Intact, Reflexes Equal Bilateral Neuro Extensive - Mental Status: Alert, Oriented x3, Normal Mood/Affect, Normal Cognition Neuro Extensive - Motor, Sensory, Reflexes: CN II-XII Intact, Normal Gait, Normal Reflexes Psychiatric: Alert, Normal Affect, Normal Mood - Problem List (1) FTT (failure to thrive) in adult SNOMED Code(s): 862491290 ICD Code: R62.7 - ADULT FAILURE TO THRIVE Status: Acute Priority: Medium Current Visit: No Onset Date: ~05/01/21 (2) Constipation SNOMED Code(s): 43206140 ICD Code: K59.00 - CONSTIPATION, UNSPECIFIED Status: Chronic Priority: Medium Current Visit: No Onset Date: ~05/03/21 Qualifiers: Qualifiers: slow transit constipation Qualifiers: [id number] Qualifiers: [id number] (3) Severe protein-calorie malnutrition SNOMED Code(s): 656931461, 175976377, 739977425 ICD Code: E43 - UNSPECIFIED SEVERE PROTEIN-CALORIE MALNUTRITION Status: Chronic Priority: Medium Current Visit: No Onset Date: ~05/01/21 (4) Hypokalemia SNOMED Code(s): 72741107 ICD Code: E87.6 - HYPOKALEMIA Status: Acute Priority: Medium Current Visit: No Onset Date: ~05/01/21 Problem Details: resolved (5) HTN (hypertension) SNOMED Code(s): 35866460 ICD Code: I10 - ESSENTIAL (PRIMARY) HYPERTENSION Status: Acute Priority: Low Current Visit: No Onset Date: ~05/01/21 (6) Altered mental status SNOMED Code(s): 471823652 ICD Code: R41.82 - ALTERED MENTAL STATUS, UNSPECIFIED Status: Acute Priority: Medium Current Visit: No Onset Date: ~05/01/21 Problem Details: delerioum cleared but still mod blankness and confusion Qualifiers: Qualifiers: disorientation Qualifiers: [id number] Qualifiers: [id number] Problem List Initiated/Reviewed/Updated: Yes Assessment/Plan Comment:: Adult failure to thrive/Severe protein calorie malnutrition Consult to physical therapy and Occupational Therapy, consult social work for placement. Patient is agreeable for placement. Appreciate public health social worker input. We will continue having ongoing discussions with daughter about sources for placement. Continue nutritional supplementation. Generalized weakness and debility PT and OT to eval and treat Hypertension continue novasc 7.5 discontinued thiazide diuretic as patient appears to have difficulty maintaining volume status. Hyponatremia Mild, improved with fluids, likely secondary to hypovolemic hyponatremia, sodium 132 05/05/21 no need for further monitoring given patient's increased intake Thiazide diuretic could have been contributing - discontinued Hypothyroidism Continue Synthroid Chronic constipation Continue with fiber and laxative Encourage fluid intake Full CODE STATUS As per patient wishes DVT prophylaxis Subcu Lovenox Patient is now medically stable for discharge, awaiting placement. med list reviewed and will cont current meds and treatments for weakness and balance problems . patient high risk for fall sec to cogn. impairment and should have slums done ; but needs assistance and unlikely to get to point of return to home. snf needed. boh
[2021-05-10] MEDS: Thiamine 100 MG Tab PO SCH (20:48)
[2021-05-11] MEDS: Levothyroxine 25 MCG Tab PO SCH (06:52)
[2021-05-11] MEDS: Levothyroxine 50 MCG Tab PO SCH (06:52)
[2021-05-11] MEDS: Potassium Chloride 10 MEQ Tab.ER PO SCH ×2 (07:58→17:44)
[2021-05-11] MEDS: Aspirin 81 MG Tab.Chew PO SCH (08:00)
[2021-05-11] MEDS: Multivitamin Tab PO SCH (08:00)
[2021-05-11] MEDS: Polyethylene Glycol 3350 Powder 17 GM Packet PO SCH (08:01)
[2021-05-11] MEDS: Enoxaparin 40 MG/0.4 ML Syringe SUBCUT SCH (08:01)
[2021-05-11] MEDS: amLODIPine 5 MG Tab PO SCH (08:13)
[2021-05-11] MEDS: PSYLLIUM HUSK PO SCH ×2 (08:15→17:46)
[2021-05-11] MEDS: Thiamine 100 MG Tab PO SCH (20:17)
[2021-05-12] MEDS: Levothyroxine 25 MCG Tab PO SCH (06:26)
[2021-05-12] MEDS: Levothyroxine 50 MCG Tab PO SCH (06:27)
[2021-05-12] MEDS: Multivitamin Tab PO SCH (08:31)
[2021-05-12] MEDS: Aspirin 81 MG Tab.Chew PO SCH (08:31)
[2021-05-12] MEDS: amLODIPine 5 MG Tab PO SCH (08:32)
[2021-05-12] MEDS: Potassium Chloride 10 MEQ Tab.ER PO SCH ×2 (08:33→18:25)
[2021-05-12] MEDS: Enoxaparin 40 MG/0.4 ML Syringe SUBCUT SCH (08:34)
[2021-05-12] MEDS: Polyethylene Glycol 3350 Powder 17 GM Packet PO SCH (08:34)
[2021-05-12] MEDS: PSYLLIUM HUSK PO SCH ×2 (08:34→18:25)
[2021-05-12] MEDS: Thiamine 100 MG Tab PO SCH (20:48)
[2021-05-13] MEDS: Levothyroxine 50 MCG Tab PO SCH (06:24)
[2021-05-13] MEDS: Levothyroxine 25 MCG Tab PO SCH (06:25)
[2021-05-13] MEDS: PSYLLIUM HUSK PO SCH ×2 (08:18→18:07)
[2021-05-13] MEDS: amLODIPine 5 MG Tab PO SCH (08:21)
[2021-05-13] MEDS: Polyethylene Glycol 3350 Powder 17 GM Packet PO SCH (08:21)
[2021-05-13] MEDS: Aspirin 81 MG Tab.Chew PO SCH (08:21)
[2021-05-13] MEDS: Enoxaparin 40 MG/0.4 ML Syringe SUBCUT SCH (08:21)
[2021-05-13] MEDS: Potassium Chloride 10 MEQ Tab.ER PO SCH ×2 (08:21→18:04)
[2021-05-13] MEDS: Multivitamin Tab PO SCH (08:21)
--- NOTE | 2021-05-13 14:26 | PCM.PN ---
- General Info Date of Service: 05/13/21 Admission Dx/Problem (Free Text): [facility]IVE Admission History & Physical Patient Name: DONALD FORBES Date of : 1935 Patient Status: Inpatient Attending Provider: Marc Varghese Date: 05/09/21 14:19 Initialization Date: 05/09/21 14:19 H&P History of Present Illness - General Date of Service: 05/09/21 Admit Problem/Dx: Generalized weakness Source of Information: Patient, Family, Provider History Limitations: Reports: Altered Mental Status, Physical Impairment - History of Present Illness Initial Comments - Free Text/Narative: Refugio LIVE Admission History & Physical Patient Name: DONALD FORBES Date of : 1935 Patient Status: Inpatient Attending Provider: Marc Varghese Date: 05/02/21 14:41 Initialization Date: 05/02/21 14:41 H&P History of Present Illness - General Date of Service: 05/02/21 Admit Problem/Dx: Admission Diagnosis/Problem Admission Diagnosis/Problem Failure to thrive, Generalized weakness. - History of Present Illness Other HPI/Comments: Mr. Forbes is an 86-year-old male with history of dementia who was just admitted to the hospital on 04/30/2021 with multiple issues that included generalized weakness, malaise, hypokalemia ,dehydration, nausea, anorexia and constipation. The patient was kept in the hospital overnight under observation status and received IV hydration, electrolyte replacement, nutritional supplementation, laxatives, PT and OT treatments. Yesterday he felt better and requested to go home. He was discharged home but later in the evening he again got weak and was unable to get out of bed on his own. This morning his /significant other had trouble getting him out of bed and called the EMS to bring him back to the hospital. As per the , the patient had some chicken noodle soup last night but has not eaten anything today. The and the two daughters would like for him to be placed at a senior living facility. He otherwise denies having any complaints such as fevers, chills, malaise or any other issues. He is able to respond to a few questions on his own but generally does not spontaneously volunteer much of any information. - Related Data Allergies/Adverse Reactions: Allergies Allergy/AdvReac Type Severity Reaction Status Date / Time atorvastatin [From Lipitor] AdvReac Muscle Verified 04/29/21 20:57 Aches Home Medications: Home Meds Chlorthalidone 25 mg PO DAILY 11/11/17 [History] Pembrolizumab [Keytruda] 1 dose IV .[id number] 11/11/17 [History] Potassium Chloride [Klor-Con M20] 40 meq PO BID 11/11/17 [History] amLODIPine [Norvasc] 7.5 mg PO DAILY 11/11/17 [History] Levothyroxine 12.5 mcg PO DAILY 06/18/20 [History] Levothyroxine [Synthroid] 50 mcg PO ACBREAKFAST 06/18/20 [History] Aspirin [Davey Chewable Aspirin] 81 mg PO DAILY 04/30/21 [History] Magnesium Oxide 250 mg PO DAILY 04/30/21 [History] Multivitamin [Multi-Vitamin Daily] 1 tab PO DAILY 04/30/21 [History] Docusate Sodium/Sennosides [Senokot-S] 1 each PO BID 30 Days #60 tablet 05/01/21 [Rx] Lactose-Reduced Food [Ensure Active High Protein] 414 ml PO TID 30 Days #90 liquid 05/01/21 [Rx] polyethylene glycoL 3350 [MiraLAX] 17 gm PO DAILY 30 Days #30 packet 05/01/21 [Rx] Past Medical History HEENT History: Reports: Impaired Vision, Other (See Below) Other HEENT History: WEARS CORRECTIVE LENS Cardiovascular History: Reports: High Cholesterol, Hypertension Respiratory History: Reports: None Gastrointestinal History: Reports: Chronic Constipation, Other (See Below) Other Gastrointestinal History: S/P HYPOKALEMIA. RIGHT INGUINAL HERNIA Genitourinary History: Reports: Other (See Below) Other Genitourinary History: HX OF URINARY CA Musculoskeletal History: Reports: Fracture Other Musculoskeletal History: HX OF FRACTURE IN RIGHT ARM Neurological History: Reports: None Psychiatric History: Reports: Anxiety Endocrine/Metabolic History: Reports: Hypothyroidism Hematologic History: Reports: None Immunologic History: Reports: Immunosuppression Oncologic (Cancer) History: Reports: Bladder Dermatologic History: Reports: Other (See Below) Other Dermatologic History: HX OF HERPES ZOSTER - Infectious Disease History Infectious Disease History: Reports: Influenza, Measles - Past Surgical History Head Surgeries/Procedures: Reports: None HEENT Surgical History: Reports: Adenoidectomy, Tonsillectomy Cardiovascular Surgical History: Reports: None Respiratory Surgical History: Reports: None GI Surgical History: Reports: Colonoscopy Male Surgical History: Reports: None Endocrine Surgical History: Reports: None Neurological Surgical History: Reports: None Musculoskeletal Surgical History: Reports: None Oncologic Surgical History: Reports: None Dermatological Surgical History: Reports: None Social & Family History - Family History Family Medical History: No Pertinent Family History - Caffeine Use Caffeine Use: Reports: Tea Other Caffeine Use: 'ONCE IN AWHILE' - Living Situation & Occupation Living situation: Reports: , with Family Occupation: Retired H&P Review of Systems - Review of Systems: Review Of Systems: See Below Free Text/Narrative: General: He denies any fever or chills CVS: Pt denies having any chest pain or edema lungs: Denies any cough, wheezes or dyspnea Pa: Denies having any nausea, vomiting or abdominal pain today MIGUEL: Denies having any dysuria, frequency, urgency or hematuria neuro: Denies having any seizures, tremors or focal weaknesses. Exam - Exam Exam: See Below - Vital Signs Vital Signs: Last Vital Signs Temp 98.7 F 05/02/21 14:31 Pulse 77 05/02/21 14:31 Resp 20 05/02/21 14:31 BP 151/88 H 05/02/21 14:31 Pulse Ox 100 05/02/21 14:31 - Exam Physical Exam Comments:: General: This is a frail elderly male who is awake and alert no distress HEENT: NC, AT, PERRLA, EOMI. CVS: S1S2 appreciated. RRR. no murmurs gallops Lungs are clear to auscultation bilaterally. No rales or wheezes. PA: Soft, nontender, bowel sounds are presents Extremities: no clubbing, cyanosis or edema. Peripheral pulses 2+ Neuro exam: patient moves all his extremities, sensation is intact, gait not examined Psych: patient has a flat affect - Patient Data Lab Results Last 24 hrs: Laboratory Results - last 24 hr 05/02/21 05/02/21 05/02/21 Range/Units 12:15 12:15 12:15 WBC 9.0 (5.0-10.0) 10^3/uL RBC 5.12 (4.6-6.2) 10^6/uL Hgb 15.7 (14.0-18.0) g/dL Hct 44.5 (40.0-54.0) % MCV 86.9 (80-100) fL MCH 30.7 (27.0-34.0) pg MCHC 35.3 H (33.0-35.0) g/dL Plt Count 205 (150-450) 10^3/uL Neut % (Auto) 74.4 (42.2-75.2) % Lymph % (Auto) 16.1 L (20.5-50.1) % Rankin % (Auto) 8.9 H (2-8) % Eos % (Auto) 0.4 L (1.0-3.0) % Baso % (Auto) 0.2 (0.0-1.0) % PT 11.0 (9.0-12.0) SEC INR 1.1 (0.9-1.2) APTT 25.2 (22.0-34.0) SEC Sodium 133 L (136-145) mmol/L Potassium 3.4 L (3.5-5.1) mmol/L Chloride 94 L (98-107) mmol/L Carbon Dioxide 28 (21-32) mmol/L Anion Gap 14.4 H (7-13) mEq/L BUN 19 H (7-18) mg/dL Creatinine 1.20 (0.70-1.30) mg/dL Est Cr Clr Drug Dosing TNP Estimated GFR (MDRD) 58 BUN/Creatinine Ratio 15.8 (No establ ref range) Glucose 109 H (70-99) mg/dL Calcium 8.7 (8.5-10.1) mg/dL Total Bilirubin 1.1 H (0.2-1.0) mg/dL AST 22 (15-37) U/L ALT 25 (16-63) U/L Alkaline Phosphatase 55 (46-116) U/L Troponin I High Sens 11 (<=76) pg/mL C-Reactive Protein 0.8 (0.0-0.9) mg/dL Total Protein 7.2 (6.4-8.2) g/dL Albumin 3.2 L (3.4-5.0) g/dL Globulin 4.0 Albumin/Globulin Ratio 0.80 Urine Color (YELLOW) Urine Appearance (CLEAR) Urine pH (5.0-9.0) Ur Specific [place] (1.005-1.030) Urine Protein (NEGATIVE) Urine Glucose (UA) (NEGATIVE) Urine Ketones (NEGATIVE) Urine Occult Blood (NEGATIVE) Urine Nitrite (NEGATIVE) Urine Bilirubin (NEGATIVE) Urine Urobilinogen (0.2-1.0) mg/dL Ur Leukocyte Esterase (NEGATIVE) Urine Opiates Screen (NEGATIVE) Ur Oxycodone Screen (NEGATIVE) Urine Methadone Screen (NEGATIVE) Ur Barbiturates Screen (NEGATIVE) U Tricyclic Antidepress (NEGATIVE) Ur Phencyclidine Scrn (NEGATIVE) Ur Amphetamine Screen (NEGATIVE) U Methamphetamines Scrn (NEGATIVE) Urine MDMA Screen (NEGATIVE) U Benzodiazepines Scrn (NEGATIVE) Urine Cocaine Screen (NEGATIVE) U Marijuana (THC) Screen (NEGATIVE) Ethyl Alcohol < 3 (0) mg/dL 05/02/21 05/02/21 Range/Units 14:10 14:10 WBC (5.0-10.0) 10^3/uL RBC (4.6-6.2) 10^6/uL Hgb (14.0-18.0) g/dL Hct (40.0-54.0) % MCV (80-100) fL MCH (27.0-34.0) pg MCHC (33.0-35.0) g/dL Plt Count (150-450) 10^3/uL Neut % (Auto) (42.2-75.2) % Lymph % (Auto) (20.5-50.1) % Rankin % (Auto) (2-8) % Eos % (Auto) (1.0-3.0) % Baso % (Auto) (0.0-1.0) % PT (9.0-12.0) SEC INR (0.9-1.2) APTT (22.0-34.0) SEC Sodium (136-145) mmol/L Potassium (3.5-5.1) mmol/L Chloride (98-107) mmol/L Carbon Dioxide (21-32) mmol/L Anion Gap (7-13) mEq/L BUN (7-18) mg/dL Creatinine (0.70-1.30) mg/dL Est Cr Clr Drug Dosing Estimated GFR (MDRD) BUN/Creatinine Ratio (No establ ref range) Glucose (70-99) mg/dL Calcium (8.5-10.1) mg/dL Total Bilirubin (0.2-1.0) mg/dL AST (15-37) U/L ALT (16-63) U/L Alkaline Phosphatase (46-116) U/L Troponin I High Sens (<=76) pg/mL C-Reactive Protein (0.0-0.9) mg/dL Total Protein (6.4-8.2) g/dL Albumin (3.4-5.0) g/dL Globulin Albumin/Globulin Ratio Urine Color Yellow (YELLOW) Urine Appearance Clear (CLEAR) Urine pH 7.0 (5.0-9.0) Ur Specific [place] 1.025 (1.005-1.030) Urine Protein Negative (NEGATIVE) Urine Glucose (UA) Negative (NEGATIVE) Urine Ketones Negative (NEGATIVE) Urine Occult Blood Negative (NEGATIVE) Urine Nitrite Negative (NEGATIVE) Urine Bilirubin Negative (NEGATIVE) Urine Urobilinogen 0.2 (0.2-1.0) mg/dL Ur Leukocyte Esterase Negative (NEGATIVE) Urine Opiates Screen Negative (NEGATIVE) Ur Oxycodone Screen Negative (NEGATIVE) Urine Methadone Screen Negative (NEGATIVE) Ur Barbiturates Screen Negative (NEGATIVE) U Tricyclic Antidepress Negative (NEGATIVE) Ur Phencyclidine Scrn Negative (NEGATIVE) Ur Amphetamine Screen Negative (NEGATIVE) U Methamphetamines Scrn Negative (NEGATIVE) Urine MDMA Screen Negative (NEGATIVE) U Benzodiazepines Scrn Negative (NEGATIVE) Urine Cocaine Screen Negative (NEGATIVE) U Marijuana (THC) Screen Negative (NEGATIVE) Ethyl Alcohol (0) mg/dL Result Diagrams: 05/02/21 12:15 05/02/21 12:15 - Problem List (1) FTT (failure to thrive) in adult SNOMED Code(s): 829276083 ICD Code: R62.7 - ADULT FAILURE TO THRIVE Status: Acute Current Visit: Yes (2) Weakness SNOMED Code(s): 07289999 ICD Code: R53.1 - WEAKNESS Status: Acute Current Visit: No (3) Dementia SNOMED Code(s): 76319159 ICD Code: F03.90 - UNSPECIFIED DEMENTIA WITHOUT BEHAVIORAL DISTURBANCE Status: Chronic Current Visit: No (4) HTN (hypertension) SNOMED Code(s): 98479522 ICD Code: I10 - ESSENTIAL (PRIMARY) HYPERTENSION Status: Acute Priority: Low Current Visit: No (5) Hypokalemia SNOMED Code(s): 41167042 ICD Code: E87.6 - HYPOKALEMIA Status: Acute Priority: Medium Current Visit: No Problem List Initiated/Reviewed/Updated: Yes Orders Last 24hrs: Active Orders 24 hr Category Date Time Status Patient Status [ADT] Routine ADT 05/02/21 13:50 Active Patient Status [ADT] Routine ADT 05/02/21 14:10 Active Blood Glucose Check, Bedside [RC] ONETIME Care 05/02/21 11:44 Active EKG 12 Lead [EKG Documentation Completion] [RC] STAT Care 05/02/21 11:44 Active NIH Stroke Scale [RC] ASDIRECTED Care 05/02/21 11:45 Active Oxygen Therapy [RC] PRN Care 05/02/21 14:10 Active Peripheral IV Care [RC] . DIRECTED Care 05/02/21 11:45 Active Up With Assistance [RC] ASDIRECTED Care 05/02/21 14:10 Active VTE/DVT Education [RC] PER UNIT ROUTINE Care 05/02/21 14:10 Active Vital Signs [RC] Q4H Care 05/02/21 14:10 Active OT Evaluation and Treatment [CONS] Routine Cons 05/02/21 14:10 Active PT Evaluation and Treatment [CONS] Routine Cons 05/02/21 14:10 Active Regular Diet [DIET] Diet 05/02/21 Dinner Active CULTURE BLOOD [BC] Stat Lab 05/02/21 12:15 Received CULTURE BLOOD [BC] Stat Lab 05/02/21 12:15 Received Enoxaparin [Lovenox] Med 05/02/21 15:00 Active 30 mg SUBCUT DAILY Ondansetron [Zofran ODT] Med 05/02/21 14:10 Active 4 mg PO Q4H PRN Potassium Chloride [Klor-Con 10] Med 05/02/21 15:00 Once 40 meq PO ONETIME ONE oxyCODONE Med 05/02/21 14:10 Active 5 mg PO Q4H PRN Blood Culture x2 Reflex Set [OM.PC] Stat Oth 05/02/21 11:44 Ordered Peripheral IV Insertion Adult [OM.PC] Stat Oth 05/02/21 11:45 Ordered Resuscitation Status Routine Resus Stat 05/02/21 14:10 Ordered Medication Orders Enoxaparin Sodium (Enoxaparin 30 Mg/0.3 Ml Syringe) 30 mg SUBCUT DAILY KAYA Ondansetron HCl (Ondansetron 4 Mg Tab.Dis) 4 mg PO Q4H PRN PRN Reason: nausea, able to take PO Oxycodone HCl (Oxycodone 5 Mg Tab) 5 mg PO Q4H PRN PRN Reason: Pain (moderate 4-6) Potassium Chloride (Potassium Chloride 10 Meq Tab.Er) 40 meq PO ONETIME ONE Stop: 05/02/21 15:01 Assessment/Plan Comment:: Adult failure to thrive Admit patient to the medical floor. We will order physical and occupational therapy Case management to assist with SNF placement. Will offer nutrition supplementation Generalized weakness and debility PT and OT to eval and treat Hypertension Resume novasc Will discontinue the thiazide diuretic and start metoprolol given that he is becoming dehydrated easily while on the the medication Hypothyroidism On synthroid. Full CODE STATUS As per patient wishes DVT prophylaxis Subcu Lovenox Patient will need more than 2 midnight stays before he can be accepted into a SNF. 05/08/21 patient requires prolonged p.t and ot and assist with toileting ,eating , med managment and cont monitoring of weight /vss and medical measures. weakness to point of needing one to assist but balance hearing and cognitive abilities limited. boh Onset of Symptoms: Reports: Gradual Duration of Symptoms: Reports: Week(s):, Chronic Improves with: Reports: Other (therapy ) Associated Symptoms: Reports: Confusion, Shortness of Breath - Related Data Allergies/Adverse Reactions: Allergies Allergy/AdvReac Type Severity Reaction Status Date / Time atorvastatin [From Lipitor] AdvReac Muscle Verified 05/08/21 09:17 Aches Home Medications: Home Meds Chlorthalidone 25 mg PO DAILY 11/11/17 [History] Pembrolizumab [Keytruda] 1 dose IV .[id number] 11/11/17 [History] Levothyroxine 12.5 mcg PO ACBREAKFAST 06/18/20 [History] Levothyroxine [Synthroid] 50 mcg PO ACBREAKFAST 06/18/20 [History] Aspirin [Davey Chewable Aspirin] 81 mg PO DAILY 04/30/21 [History] Magnesium Oxide 250 mg PO DAILY 04/30/21 [History] Multivitamin [Multi-Vitamin Daily] 1 tab PO DAILY 04/30/21 [History] Docusate Sodium/Sennosides [Senokot-S] 1 each PO BID 30 Days #60 tablet 05/01/21 [Rx] Lactose-Reduced Food [Ensure Active High Protein] 414 ml PO TID 30 Days #90 liq uid 05/01/21 [Rx] polyethylene glycoL 3350 [MiraLAX] 17 gm PO DAILY 30 Days #30 packet 05/01/21 [Rx] Docusate Sodium/Sennosides [Senna Plus] 1 tab PO BID tablet 05/08/21 [Rx] Levothyroxine 12.5 mcg PO ACBREAKFAST tablet 05/08/21 [Rx] Multivitamin/Iron/Folic Acid [One Daily Multivitamin-Iron Tb] 1 each PO ACLUNCH #30 tablet 05/08/21 [Rx] Patient's Own Medication [Ptom] 0 each PO BID each 05/08/21 [Rx] Sennosides [Evac-U-Gen] 8.6 mg PO ACLUNCH 30 Days #30 tablet 05/08/21 [Rx] Thiamine HCl [Vitamin B-1] 50 mg PO ACLUNCH #30 tablet 05/08/21 [Rx] amLODIPine [Norvasc] 7.5 mg PO DAILY 05/08/21 [History] amLODIPine [Norvasc] 7.5 mg PO DAILY tablet 05/08/21 [Rx] Past Medical History HEENT History: Reports: Impaired Vision, Other (See Below) Other HEENT History: WEARS CORRECTIVE LENS Cardiovascular History: Reports: High Cholesterol, Hypertension Respiratory History: Reports: None Gastrointestinal History: Reports: Chronic Constipation, Other (See Below) Other Gastrointestinal History: S/P HYPOKALEMIA. RIGHT INGUINAL HERNIA Genitourinary History: Reports: Other (See Below) Other Genitourinary History: HX OF URINARY CA Musculoskeletal History: Reports: Fracture Other Musculoskeletal History: HX OF FRACTURE IN RIGHT ARM Neurological History: Reports: None Psychiatric History: Reports: Anxiety Endocrine/Metabolic History: Reports: Hypothyroidism Hematologic History: Reports: None Immunologic History: Reports: Immunosuppression Oncologic (Cancer) History: Reports: Bladder Dermatologic History: Reports: Other (See Below) Other Dermatologic History: HX OF HERPES ZOSTER - Infectious Disease History Infectious Disease History: Reports: Influenza, Measles - Past Surgical History Head Surgeries/Procedures: Reports: None HEENT Surgical History: Reports: Adenoidectomy, Tonsillectomy Cardiovascular Surgical History: Reports: None Respiratory Surgical History: Reports: None GI Surgical History: Reports: Colonoscopy Male Surgical History: Reports: None Endocrine Surgical History: Reports: None Neurological Surgical History: Reports: None Musculoskeletal Surgical History: Reports: None Oncologic Surgical History: Reports: None Dermatological Surgical History: Reports: None Social & Family History - Family History Family Medical History: No Pertinent Family History - Tobacco Use Tobacco Use Status *Q: Never Tobacco User - Caffeine Use Caffeine Use: Reports: Tea Other Caffeine Use: 'ONCE IN AWHILE' - Recreational Drug Use Recreational Drug Use: No - Living Situation & Occupation Living situation: Reports: , with Family Occupation: Retired H&P Review of Systems - Review of Systems: Review Of Systems: See Below General: Reports: No Symptoms HEENT: Reports: No Symptoms Pulmonary: Reports: Shortness of Breath Cardiovascular: Reports: Other (balance and weakness) Gastrointestinal: Reports: Anorexia Genitourinary: Reports: No Symptoms Musculoskeletal: Reports: No Symptoms Skin: Reports: No Symptoms Psychiatric: Reports: No Symptoms, Confusion Neurological: Reports: No Symptoms Hematologic/Lymphatic: Reports: No Symptoms Immunologic: Reports: No Symptoms Exam - Exam Exam: See Below - Vital Signs Vital Signs: Last Vital Signs Temp 36.7 C 05/08/21 07:43 Pulse 76 05/08/21 07:43 Resp 20 05/08/21 07:43 BP 150/60 H 05/08/21 08:20 Pulse Ox 98 05/08/21 07:43 Weight: 60.963 kg - Exam General: Alert, Oriented, 4 HEENT: PERRLA, Hearing Intact, Mucosa Moist & [place], Nares Patent, Normal Nasal Septum, Posterior Pharynx Clear, Conjunctiva Clear, EOMI, EACs Clear, TMs Clear Neck: Supple, Trachea Midline, 2 Lungs: Clear to Auscultation, Normal Respiratory Effort Cardiovascular: Regular Rate, Regular Rhythm GI/Abdominal Exam: Normal Bowel Sounds, Soft, Non-Tender, No Organomegaly, No Distention, No Abnormal Bruit, No Mass, Pelvis Stable (Male) Exam: No Hernia, Normal Inspection, Normal Prostate, Circumcised Rectal (Males) Exam: Normal Exam, Normal Rectal Tone, Prostate Normal Back Exam: Normal Inspection, Full Range of Motion, NT Extremities: Normal Inspection, Normal Range of Motion, Non-Tender, No Pedal Edema, Normal Capillary Refill Skin: Warm, Dry, Intact Neurological: Cranial Nerves Intact, Reflexes Equal Bilateral Neuro Extensive - Mental Status: Alert, Oriented x3, Normal Mood/Affect, Normal Cognition Neuro Extensive - Motor, Sensory, Reflexes: CN II-XII Intact, Normal Gait, Normal Reflexes Psychiatric: Alert, Normal Affect, Normal Mood - Problem List (1) FTT (failure to thrive) in adult SNOMED Code(s): 515946301 ICD Code: R62.7 - ADULT FAILURE TO THRIVE Status: Acute Priority: Medium Current Visit: No Onset Date: ~05/01/21 (2) Constipation SNOMED Code(s): 74919828 ICD Code: K59.00 - CONSTIPATION, UNSPECIFIED Status: Chronic Priority: Medium Current Visit: No Onset Date: ~05/03/21 Qualifiers: Qualifiers: slow transit constipation Qualifiers: [id number] Qualifiers: [id number] (3) Severe protein-calorie malnutrition SNOMED Code(s): 264075128, 862774116, 259270057 ICD Code: E43 - UNSPECIFIED SEVERE PROTEIN-CALORIE MALNUTRITION Status: Chronic Priority: Medium Current Visit: No Onset Date: ~05/01/21 (4) Hypokalemia SNOMED Code(s): 48815361 ICD Code: E87.6 - HYPOKALEMIA Status: Acute Priority: Medium Current Visit: No Onset Date: ~05/01/21 Problem Details: resolved (5) HTN (hypertension) SNOMED Code(s): 25000655 ICD Code: I10 - ESSENTIAL (PRIMARY) HYPERTENSION Status: Acute Priority: Low Current Visit: No Onset Date: ~05/01/21 (6) Altered mental status SNOMED Code(s): 806366748 ICD Code: R41.82 - ALTERED MENTAL STATUS, UNSPECIFIED Status: Acute Priority: Medium Current Visit: No Onset Date: ~05/01/21 Problem Details: delerioum cleared but still mod blankness and confusion Qualifiers: Qualifiers: disorientation Qualifiers: [id number] Qualifiers: [id number] Problem List Initiated/Reviewed/Updated: Yes Assessment/Plan Comment:: Adult failure to thrive/Severe protein calorie malnutrition Consult to physical therapy and Occupational Therapy, consult social work for placement. Patient is agreeable for placement. Appreciate community mental health social worker input. We will continue having ongoing discussions with daughter about sources for placement. Continue nutritional supplementation. Generalized weakness and debility PT and OT to eval and treat Hypertension continue novasc 7.5 discontinued thiazide diuretic as patient appears to have difficulty maintaining volume status. Hyponatremia Mild, improved with fluids, likely secondary to hypovolemic hyponatremia, sodium 132 05/05/21 no need for further monitoring given patient's increased intake Thiazide diuretic could have been contributing - discontinued Hypothyroidism Continue Synthroid Chronic constipation Continue with fiber and laxative Encourage fluid intake Full CODE STATUS As per patient wishes DVT prophylaxis Subcu Lovenox Patient is now medically stable for discharge, awaiting placement. med list reviewed and will cont current meds and treatments for weakness and balance problems . patient high risk for fall sec to cogn. impairment and should have slums done ; but needs assistance and unlikely to get to point of return to home. snf needed. boh Subjective Update: 05/13/21 donald doing well overall weakness continues but making progress going farther with less assist. eating much better and daughter cont. to suppliment with snacks on current plan. abd issues better but gassy and belches a bit but no constipation and or bad pain/bloating . bms once sometimes 2 x day. no signs infection or focal weakness and cognitively brighter and more interactive. p.e. no changes. lab none. assess: 1// weakness better.cont p/t o/t 2// nutrition better ftt improved. 3// abd pain bloating constipation better. 4// dementia more in tune with discussion and interacting well with staff and daughter. increased activity some. boh Functional Status: Reports: Pain Controlled - Review of Systems General: Reports: No Symptoms HEENT: Reports: No Symptoms Pulmonary: Reports: No Symptoms Cardiovascular: Reports: No Symptoms Gastrointestinal: Reports: No Symptoms Genitourinary: Reports: No Symptoms Musculoskeletal: Reports: No Symptoms Skin: Reports: No Symptoms Neurological: Reports: No Symptoms Psychiatric: Reports: No Symptoms - Patient Data Vitals - Most Recent: Last Vital Signs Temp 36.9 C 05/13/21 08:33 Pulse 70 05/13/21 08:33 Resp 20 05/13/21 08:33 BP 149/86 H 05/13/21 08:33 Pulse Ox 98 05/13/21 08:33 Weight - Most Recent: 61.779 kg I&O - Last 24 Hours: Intake & Output 05/12/21 05/13/21 05/13/21 22:59 06:59 14:59 Intake Total 200 Balance 200 Med Orders - Current: Current Medications Amlodipine Besylate (Amlodipine 5 Mg Tab) 7.5 mg PO DAILY [facility] Last Admin: 05/13/21 08:21 Dose: 7.5 mg Documented by: Aspirin (Aspirin 81 Mg Tab.Chew) 81 mg PO DAILY [facility] Last Admin: 05/13/21 08:21 Dose: 81 mg Documented by: Bisacodyl (Bisacodyl 10 Mg Supp) 10 mg RECTAL DAILY PRN PRN Reason: constipation Enoxaparin Sodium (Enoxaparin 40 Mg/0.4 Ml Syringe) 40 mg SUBCUT DAILY [facility] Last Admin: 05/13/21 08:21 Dose: 40 mg Documented by: Levothyroxine Sodium (Levothyroxine 50 Mcg Tab) 50 mcg PO ACBREAKFAST [facility] Last Admin: 05/13/21 06:24 Dose: 50 mcg Documented by: Levothyroxine Sodium (Levothyroxine 25 Mcg Tab) 12.5 mcg PO ACBREAKFAST [facility] Last Admin: 05/13/21 06:25 Dose: 12.5 mcg Documented by: Magnesium Oxide (Magnesium Oxide 250 Mg Tab) 250 mg PO DAILY@1200 [facility] Last Admin: 05/13/21 12:42 Dose: 250 mg Documented by: Multivitamins/Minerals/Vitamin C (Multivitamin Tab) 1 tab PO DAILY [facility] Last Admin: 05/13/21 08:21 Dose: 1 tab Documented by: Ondansetron HCl (Ondansetron 4 Mg Tab.Dis) 4 mg PO Q4H PRN PRN Reason: nausea, able to take PO Psyllium Husk ( Metamucil) Powder Sugar Free Own Med 0 each PO BID@0900,1800 [facility] Last Admin: 05/13/21 08:18 Dose: 1 each Documented by: Polyethylene Glycol (Polyethylene Glycol 3350 Powder 17 Gm Packet) 17 gm PO DAILY [facility] Last Admin: 05/13/21 08:21 Dose: 17 gm Documented by: Potassium Chloride (Potassium Chloride 10 Meq Tab.Er) 40 meq PO BIDMEALS [facility] Last Admin: 05/13/21 08:21 Dose: 40 meq Documented by: Senna/Docusate Sodium (Docusate Sodium/Sennosides 50-8.6 Mg Tab) 1 tab PO BID [facility] Last Admin: 05/13/21 08:21 Dose: 1 tab Documented by: Thiamine HCl (Thiamine 100 Mg Tab) 100 mg PO BEDTIME [facility] Last Admin: 05/12/21 20:48 Dose: 100 mg Documented by: Discontinued Medications Psyllium Husk ( Metamucil) Powder Sugar Free Own Med 0 each PO BID [facility] Last Admin: 05/09/21 08:16 Dose: 1 each Documented by: - Exam General: Alert, Oriented HEENT: Pupils Equal, Pupils Reactive, EOMI, Mucous Membr. Moist/[place] Neck: Supple Lungs: Clear to Auscultation, Normal Respiratory Effort Cardiovascular: Regular Rate, Regular Rhythm GI/Abdominal Exam: Normal Bowel Sounds, Soft, Non-Tender, No Organomegaly, No Distention, No Abnormal Bruit, No Mass, Pelvis Stable (Male) Exam: No Hernia, Normal Inspection, Normal Prostate, Circumcised Back Exam: Normal Inspection, Full Range of Motion Extremities: Normal Inspection, Normal Range of Motion, Non-Tender, No Pedal Edema, Normal Capillary Refill Skin: Warm, Dry, Intact Wound/Incisions: Healing Well Neurological: No New Focal Deficit Psy/Mental Status: Alert, Normal Affect, Normal Mood Sepsis Event Note - Evaluation Sepsis Screening Result: No Definite Risk - Focused Exam Vital Signs: Vital Signs Temp Pulse Resp BP BP Pulse Ox 05/13/21 08:33 36.9 C 70 20 149/86 H 98 05/13/21 08:21 149/86 H - Problem List & Annotations (1) Weakness SNOMED Code(s): 42858250 Code(s): R53.1 - WEAKNESS Status: Acute Priority: Medium Current Visit: Yes Onset Date: ~05/01/21 (2) Altered mental status SNOMED Code(s): 178215363 Code(s): R41.82 - ALTERED MENTAL STATUS, UNSPECIFIED Status: Acute Prior ity: Medium Current Visit: No Onset Date: ~05/01/21 Qualifiers: Altered mental status type: disorientation Qualified Code(s): R41.0 - Disorientation, unspecified Annotation/Comment:: delerioum cleared but still mod blankness and confusion (3) FTT (failure to thrive) in adult SNOMED Code(s): 980709637 Code(s): R62.7 - ADULT FAILURE TO THRIVE Status: Acute Priority: Low Current Visit: No Onset Date: ~05/01/21 (4) Hypothyroid SNOMED Code(s): 52027020 Code(s): E03.9 - HYPOTHYROIDISM, UNSPECIFIED Status: Acute Priority: Low Current Visit: No Qualifiers: 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 eating much better and daughter cont. to suppliment with snacks on current plan. abd issues better but gassy and belches a bit but no constipation and or bad pain/bloating . bms once sometimes 2 x day. no signs infection or focal weakness and cognitively brighter and more interactive. p.e. no changes. lab none. assess: 1// weakness better.cont p/t o/t 2// nutrition better ftt improved. 3// abd pain bloating constipation better. 4// dementia more in tune with discussion and interacting well with staff and daughter. increased activity some. boh - Assessment Assessment:: 05/13/21 donald doing well overall weakness continues but making progress going farther with less assist. eating much better and daughter cont. to suppliment with snacks on current plan. abd issues better but gassy and belches a bit but no constipation and or bad pain/bloating . bms once sometimes 2 x day. no signs infection or focal weakness and cognitively brighter and more interactive. p.e. no changes. lab none. assess: 1// weakness better.cont p/t o/t 2// nutrition better ftt improved. 3// abd pain bloating constipation better. 4// dementia more in tune with discussion and interacting well with staff and daughter. increased activity some. boh - Plan Plan:: Adult failure to thrive/Severe protein calorie malnutrition Consult to physical therapy and Occupational Therapy, consult social work for placement. Patient is agreeable for placement. Appreciate community mental health social worker input. We will continue having ongoing discussions with daughter about sources for placement. Continue nutritional supplementation. Generalized weakness and debility PT and OT to eval and treat Hypertension continue novasc 7.5 discontinued thiazide diuretic as patient appears to have difficulty maintaining volume status. Hyponatremia Mild, improved with fluids, likely secondary to hypovolemic hyponatremia, sodium 132 05/05/21 no need for further monitoring given patient's increased intake Thiazide diuretic could have been contributing - discontinued Hypothyroidism Continue Synthroid Chronic constipation Continue with fiber and laxative Encourage fluid intake Full CODE STATUS As per patient wishes DVT prophylaxis Subcu Lovenox Patient is now medically stable for discharge, awaiting placement. med list reviewed and will cont current meds and treatments for weakness and balance problems . patient high risk for fall sec to cogn. impairment and should have slums done ; but needs assistance and unlikely to get to point of return to home. snf needed. boh
[2021-05-13] MEDS: Thiamine 100 MG Tab PO SCH (21:00)
[2021-05-14] MEDS: Levothyroxine 25 MCG Tab PO SCH (06:30)
[2021-05-14] MEDS: Levothyroxine 50 MCG Tab PO SCH (06:31)
[2021-05-14] MEDS: Polyethylene Glycol 3350 Powder 17 GM Packet PO SCH (08:47)
[2021-05-14] MEDS: amLODIPine 5 MG Tab PO SCH (08:49)
[2021-05-14] MEDS: Potassium Chloride 10 MEQ Tab.ER PO SCH ×2 (08:50→17:37)
[2021-05-14] MEDS: Multivitamin Tab PO SCH (08:50)
[2021-05-14] MEDS: Aspirin 81 MG Tab.Chew PO SCH (08:50)
[2021-05-14] MEDS: Enoxaparin 40 MG/0.4 ML Syringe SUBCUT SCH (08:51)
[2021-05-14] MEDS: PSYLLIUM HUSK PO SCH ×2 (09:57→17:37)
[2021-05-14] MEDS: Thiamine 100 MG Tab PO SCH (20:10)
[2021-05-15] MEDS: Levothyroxine 50 MCG Tab PO SCH (05:48)
[2021-05-15] MEDS: Levothyroxine 25 MCG Tab PO SCH (05:50)
--- NOTE | 2021-05-15 08:10 | PCM.DCSUM1 ---
Discharge Summary - Hospital Course Brief History: This is an 86-year-old elderly white male with past medical history of hypertension, hyperlipidemia, hypothyroidism, chronic constipation, impaired vision, history of right inguinal hernia, urinary and bladder cancer currently on Keytruda, immunosuppression, history of herpes zoster, and anxiety who was admitted to our swing bed for multiple issues but essentially related to failure to thrive. Diagnosis: Stroke: No Modified Jeet Scale: No Symptoms at All Modified Makoti Scale Score: 0 - Discharge Data Discharge Date: 05/15/21 Discharge Disposition: DC/Tfer to Inpt Rehab Fac 62 Condition: Good - Referral to Home Health Primary Care Physician: PCP None - Patient Summary/Data Operative Procedure(s) Performed: None Complications: None Consults: Consultations 05/08/21 11:11 OT Evaluation and Treatment [CONS] Routine PT Evaluation and Treatment [CONS] Routine Labs Pending at D/C: None Recommended Follow-up Testing/Procedures: None Planned Operative Procedure(s) after DC: None Hospital Course: Patient was primarily admitted for failure to thrive. He was considerably weak and required help to get up and move around. He has an underlying chronic constipation and still on chemotherapy on and Keytruda for maintenance medication. Patient received initial treatment and was discharged to our swing bed for deconditioning. Patient did well with PT and OT. At this point, it appears he is back to his previous level of function. He will now be discharged and my understanding is is that, he will be moving to [place] to be closer to one of his children and to continue with physical deconditioning (PT/OT). - Patient Instructions Diet: Usual Diet as Tolerated Activity: As Tolerated Driving: Do Not Drive Showering/Bathing: May Shower Notify Provider of: Fever, Increased Pain, Swelling and Redness, Drainage, Nausea and/or Vomiting Other/Special Instructions: Patient will be discharged today. He will be moving to [place] to be closer to her daughter for continued care. - Discharge Plan *PRESCRIPTION DRUG MONITORING PROGRAM REVIEWED*: Not Applicable *COPY OF PRESCRIPTION DRUG MONITORING REPORT IN PATIENT YUNIEL: Not Applicable Prescriptions/Med Rec: polyethylene glycoL 3350 [MiraLAX] 17 gm PO ONETIME PRN 15 Days #15 packet PRN Reason: Constipation Home Medications: Home Meds Chlorthalidone 25 mg PO DAILY 11/11/17 [History] Pembrolizumab [Keytruda] 1 dose IV .[id number] 11/11/17 [History] Levothyroxine 12.5 mcg PO ACBREAKFAST 06/18/20 [History] Levothyroxine [Synthroid] 50 mcg PO ACBREAKFAST 06/18/20 [History] Aspirin [Davey Chewable Aspirin] 81 mg PO DAILY 04/30/21 [History] Magnesium Oxide 250 mg PO DAILY 04/30/21 [History] Multivitamin [Multi-Vitamin Daily] 1 tab PO DAILY 04/30/21 [History] Docusate Sodium/Sennosides [Senokot-S] 1 each PO BID 30 Days #60 tablet 05/01/21 [Rx] Lactose-Reduced Food [Ensure Active High Protein] 414 ml PO TID 30 Days #90 liquid 05/01/21 [Rx] Docusate Sodium/Sennosides [Senna Plus] 1 tab PO BID tablet 05/08/21 [Rx] Levothyroxine 12.5 mcg PO ACBREAKFAST tablet 05/08/21 [Rx] Multivitamin/Iron/Folic Acid [One Daily Multivitamin-Iron Tb] 1 each PO ACLUNCH #30 tablet 05/08/21 [Rx] Patient's Own Medication [Ptom] 0 each PO BID each 05/08/21 [Rx] Sennosides [Evac-U-Gen] 8.6 mg PO ACLUNCH 30 Days #30 tablet 05/08/21 [Rx] Thiamine HCl [Vitamin B-1] 50 mg PO ACLUNCH #30 tablet 05/08/21 [Rx] amLODIPine [Norvasc] 7.5 mg PO DAILY 05/08/21 [History] amLODIPine [Norvasc] 7.5 mg PO DAILY tablet 05/08/21 [Rx] polyethylene glycoL 3350 [MiraLAX] 17 gm PO ONETIME PRN 15 Days #15 packet 05/15/21 [Rx] Oxygen Therapy Mode: Room Air Patient Handouts: Fall Prevention in the Home, Adult, Iemp-tz-Dzfe, Polyethylene Glycol Powder for Oral Solution Referrals: Martinez Jonas MD [Physician] - - Discharge Summary/Plan Comment DC Time >30 min.: No Total # of Minutes for Discharge Time: 20 mins Discharge Summary/Plan Comment: Discharge to home with family - General Info Date of Service: 05/15/21 Admission Dx/Problem (Free Text: Refugio LIVE Admission History & Physical Patient Name: DONALD FORBES Date of : 1935 Patient Status: Inpatient Attending Provider: Marc Varghese Date: 05/09/21 14:19 Initialization Date: 05/09/21 14:19 H&P History of Present Illness - General Date of Service: 05/09/21 Admit Problem/Dx: Generalized weakness Source of Information: Patient, Family, Provider History Limitations: Reports: Altered Mental Status, Physical Impairment - History of Present Illness Initial Comments - Free Text/Narative: Refugio LIVE Admission History & Physical Patient Name: DONALD FORBES Date of : 1935 Patient Status: Inpatient Attending Provider: Marc Varghese Date: 05/02/21 14:41 Initialization Date: 05/02/21 14:41 H&P History of Present Illness - General Date of Service: 05/02/21 Admit Problem/Dx: Admission Diagnosis/Problem Admission Diagnosis/Problem Failure to thrive, Generalized weakness. - History of Present Illness Other HPI/Comments: Mr. Forbes is an 86-year-old male with history of dementia who was just admitted to the hospital on 04/30/2021 with multiple issues that included generalized weakness, malaise, hypokalemia ,dehydration, nausea, anorexia and constipation. The patient was kept in the hospital overnight under observation status and received IV hydration, electrolyte replacement, nutritional supplementation, laxatives, PT and OT treatments. Yesterday he felt better and requested to go home. He was discharged home but later in the evening he again got weak and was unable to get out of bed on his own. This morning his /significant other had trouble getting him out of bed and called the EMS to bring him back to the hospital. As per the , the patient had some chicken noodle soup last night but has not eaten anything today. The and the two daughters would like for him to be placed at a residential facility. He otherwise denies having any complaints such as fevers, chills, malaise or any other issues. He is able to respond to a few questions on his own but generally does not spontaneously volunteer much of any information. - Related Data Allergies/Adverse Reactions: Allergies Allergy/AdvReac Type Severity Reaction Status Date / Time atorvastatin [From Lipitor] AdvReac Muscle Verified 04/29/21 20:57 Aches Home Medications: Home Meds Chlorthalidone 25 mg PO DAILY 11/11/17 [History] Pembrolizumab [Keytruda] 1 dose IV .[id number] 11/11/17 [History] Potassium Chloride [Klor-Con M20] 40 meq PO BID 11/11/17 [History] amLODIPine [Norvasc] 7.5 mg PO DAILY 11/11/17 [History] Levothyroxine 12.5 mcg PO DAILY 06/18/20 [History] Levothyroxine [Synthroid] 50 mcg PO ACBREAKFAST 06/18/20 [History] Aspirin [Davey Chewable Aspirin] 81 mg PO DAILY 04/30/21 [History] Magnesium Oxide 250 mg PO DAILY 04/30/21 [History] Multivitamin [Multi-Vitamin Daily] 1 tab PO DAILY 04/30/21 [History] Docusate Sodium/Sennosides [Senokot-S] 1 each PO BID 30 Days #60 tablet 05/01/21 [Rx] Lactose-Reduced Food [Ensure Active High Protein] 414 ml PO TID 30 Days #90 liquid 05/01/21 [Rx] polyethylene glycoL 3350 [MiraLAX] 17 gm PO DAILY 30 Days #30 packet 05/01/21 [Rx] Past Medical History HEENT History: Reports: Impaired Vision, Other (See Below) Other HEENT History: WEARS CORRECTIVE LENS Cardiovascular History: Reports: High Cholesterol, Hypertension Respiratory History: Reports: None Gastrointestinal History: Reports: Chronic Constipation, Other (See Below) Other Gastrointestinal History: S/P HYPOKALEMIA. RIGHT INGUINAL HERNIA Genitourinary History: Reports: Other (See Below) Other Genitourinary History: HX OF URINARY CA Musculoskeletal History: Reports: Fracture Other Musculoskeletal History: HX OF FRACTURE IN RIGHT ARM Neurological History: Reports: None Psychiatric History: Reports: Anxiety Endocrine/Metabolic History: Reports: Hypothyroidism Hematologic History: Reports: None Immunologic History: Reports: Immunosuppression Oncologic (Cancer) History: Reports: Bladder Dermatologic History: Reports: Other (See Below) Other Dermatologic History: HX OF HERPES ZOSTER - Infectious Disease History Infectious Disease History: Reports: Influenza, Measles - Past Surgical History Head Surgeries/Procedures: Reports: None HEENT Surgical History: Reports: Adenoidectomy, Tonsillectomy Cardiovascular Surgical History: Reports: None Respiratory Surgical History: Reports: None GI Surgical History: Reports: Colonoscopy Male Surgical History: Reports: None Endocrine Surgical History: Reports: None Neurological Surgical History: Reports: None Musculoskeletal Surgical History: Reports: None Oncologic Surgical History: Reports: None Dermatological Surgical History: Reports: None Social & Family History - Family History Family Medical History: No Pertinent Family History - Caffeine Use Caffeine Use: Reports: Tea Other Caffeine Use: 'ONCE IN AWHILE' - Living Situation & Occupation Living situation: Reports: , with Family Occupation: Retired H&P Review of Systems - Review of Systems: Review Of Systems: See Below Free Text/Narrative: General: He denies any fever or chills CVS: Pt denies having any chest pain or edema lungs: Denies any cough, wheezes or dyspnea Pa: Denies having any nausea, vomiting or abdominal pain today MIGUEL: Denies having any dysuria, frequency, urgency or hematuria neuro: Denies having any seizures, tremors or focal weaknesses. Exam - Exam Exam: See Below - Vital Signs Vital Signs: Last Vital Signs Temp 98.7 F 05/02/21 14:31 Pulse 77 05/02/21 14:31 Resp 20 05/02/21 14:31 BP 151/88 H 05/02/21 14:31 Pulse Ox 100 05/02/21 14:31 - Exam Physical Exam Comments:: General: This is a frail elderly male who is awake and alert no distress HEENT: NC, AT, PERRLA, EOMI. CVS: S1S2 appreciated. RRR. no murmurs gallops Lungs are clear to auscultation bilaterally. No rales or wheezes. PA: Soft, nontender, bowel sounds are presents Extremities: no clubbing, cyanosis or edema. Peripheral pulses 2+ Neuro exam: patient moves all his extremities, sensation is intact, gait not examined Psych: patient has a flat affect - Patient Data Lab Results Last 24 hrs: Laboratory Results - last 24 hr 05/02/21 05/02/21 05/02/21 Range/Units 12:15 12:15 12:15 WBC 9.0 (5.0-10.0) 10^3/uL RBC 5.12 (4.6-6.2) 10^6/uL Hgb 15.7 (14.0-18.0) g/dL Hct 44.5 (40.0-54.0) % MCV 86.9 (80-100) fL MCH 30.7 (27.0-34.0) pg MCHC 35.3 H (33.0-35.0) g/dL Plt Count 205 (150-450) 10^3/uL Neut % (Auto) 74.4 (42.2-75.2) % Lymph % (Auto) 16.1 L (20.5-50.1) % [place] % (Auto) 8.9 H (2-8) % Eos % (Auto) 0.4 L (1.0-3.0) % Baso % (Auto) 0.2 (0.0-1.0) % PT 11.0 (9.0-12.0) SEC INR 1.1 (0.9-1.2) APTT 25.2 (22.0-34.0) SEC Sodium 133 L (136-145) mmol/L Potassium 3.4 L (3.5-5.1) mmol/L Chloride 94 L (98-107) mmol/L Carbon Dioxide 28 (21-32) mmol/L Anion Gap 14.4 H (7-13) mEq/L BUN 19 H (7-18) mg/dL Creatinine 1.20 (0.70-1.30) mg/dL Est Cr Clr Drug Dosing TNP Estimated GFR (MDRD) 58 BUN/Creatinine Ratio 15.8 (No establ ref range) Glucose 109 H (70-99) mg/dL Calcium 8.7 (8.5-10.1) mg/dL Total Bilirubin 1.1 H (0.2-1.0) mg/dL AST 22 (15-37) U/L ALT 25 (16-63) U/L Alkaline Phosphatase 55 (46-116) U/L Troponin I High Sens 11 (<=76) pg/mL C-Reactive Protein 0.8 (0.0-0.9) mg/dL Total Protein 7.2 (6.4-8.2) g/dL Albumin 3.2 L (3.4-5.0) g/dL Globulin 4.0 Albumin/Globulin Ratio 0.80 Urine Color (YELLOW) Urine Appearance (CLEAR) Urine pH (5.0-9.0) Ur Specific [place] (1.005-1.030) Urine Protein (NEGATIVE) Urine Glucose (UA) (NEGATIVE) Urine Ketones (NEGATIVE) Urine Occult Blood (NEGATIVE) Urine Nitrite (NEGATIVE) Urine Bilirubin (NEGATIVE) Urine Urobilinogen (0.2-1.0) mg/dL Ur Leukocyte Esterase (NEGATIVE) Urine Opiates Screen (NEGATIVE) Ur Oxycodone Screen (NEGATIVE) Urine Methadone Screen (NEGATIVE) Ur Barbiturates Screen (NEGATIVE) U Tricyclic Antidepress (NEGATIVE) Ur Phencyclidine Scrn (NEGATIVE) Ur Amphetamine Screen (NEGATIVE) U Methamphetamines Scrn (NEGATIVE) Urine MDMA Screen (NEGATIVE) U Benzodiazepines Scrn (NEGATIVE) Urine Cocaine Screen (NEGATIVE) U Marijuana (THC) Screen (NEGATIVE) Ethyl Alcohol < 3 (0) mg/dL 05/02/21 05/02/21 Range/Units 14:10 14:10 WBC (5.0-10.0) 10^3/uL RBC (4.6-6.2) 10^6/uL Hgb (14.0-18.0) g/dL Hct (40.0-54.0) % MCV (80-100) fL MCH (27.0-34.0) pg MCHC (33.0-35.0) g/dL Plt Count (150-450) 10^3/uL Neut % (Auto) (42.2-75.2) % Lymph % (Auto) (20.5-50.1) % [place] % (Auto) (2-8) % Eos % (Auto) (1.0-3.0) % Baso % (Auto) (0.0-1.0) % PT (9.0-12.0) SEC INR (0.9-1.2) APTT (22.0-34.0) SEC Sodium (136-145) mmol/L Potassium (3.5-5.1) mmol/L Chloride (98-107) mmol/L Carbon Dioxide (21-32) mmol/L Anion Gap (7-13) mEq/L BUN (7-18) mg/dL Creatinine (0.70-1.30) mg/dL Est Cr Clr Drug Dosing Estimated GFR (MDRD) BUN/Creatinine Ratio (No establ ref range) Glucose (70-99) mg/dL Calcium (8.5-10.1) mg/dL Total Bilirubin (0.2-1.0) mg/dL AST (15-37) U/L ALT (16-63) U/L Alkaline Phosphatase (46-116) U/L Troponin I High Sens (<=76) pg/mL C-Reactive Protein (0.0-0.9) mg/dL Total Protein (6.4-8.2) g/dL Albumin (3.4-5.0) g/dL Globulin Albumin/Globulin Ratio Urine Color Yellow (YELLOW) Urine Appearance Clear (CLEAR) Urine pH 7.0 (5.0-9.0) Ur Specific [place] 1.025 (1.005-1.030) Urine Protein Negative (NEGATIVE) Urine Glucose (UA) Negative (NEGATIVE) Urine Ketones Negative (NEGATIVE) Urine Occult Blood Negative (NEGATIVE) Urine Nitrite Negative (NEGATIVE) Urine Bilirubin Negative (NEGATIVE) Urine Urobilinogen 0.2 (0.2-1.0) mg/dL Ur Leukocyte Esterase Negative (NEGATIVE) Urine Opiates Screen Negative (NEGATIVE) Ur Oxycodone Screen Negative (NEGATIVE) Urine Methadone Screen Negative (NEGATIVE) Ur Barbiturates Screen Negative (NEGATIVE) U Tricyclic Antidepress Negative (NEGATIVE) Ur Phencyclidine Scrn Negative (NEGATIVE) Ur Amphetamine Screen Negative (NEGATIVE) U Methamphetamines Scrn Negative (NEGATIVE) Urine MDMA Screen Negative (NEGATIVE) U Benzodiazepines Scrn Negative (NEGATIVE) Urine Cocaine Screen Negative (NEGATIVE) U Marijuana (THC) Screen Negative (NEGATIVE) Ethyl Alcohol (0) mg/dL Result Diagrams: 05/02/21 12:15 05/02/21 12:15 - Problem List (1) FTT (failure to thrive) in adult SNOMED Code(s): 906834903 ICD Code: R62.7 - ADULT FAILURE TO THRIVE Status: Acute Current Visit: Yes (2) Weakness SNOMED Code(s): 84298824 ICD Code: R53.1 - WEAKNESS Status: Acute Current Visit: No (3) Dementia SNOMED Code(s): 44693894 ICD Code: F03.90 - UNSPECIFIED DEMENTIA WITHOUT BEHAVIORAL DISTURBANCE Status: Chronic Current Visit: No (4) HTN (hypertension) SNOMED Code(s): 08544110 ICD Code: I10 - ESSENTIAL (PRIMARY) HYPERTENSION Status: Acute Priority: Low Current Visit: No (5) Hypokalemia SNOMED Code(s): 49984510 ICD Code: E87.6 - HYPOKALEMIA Status: Acute Priority: Medium Current Visit: No Problem List Initiated/Reviewed/Updated: Yes Orders Last 24hrs: Active Orders 24 hr Category Date Time Status Patient Status [ADT] Routine ADT 05/02/21 13:50 Active Patient Status [ADT] Routine ADT 05/02/21 14:10 Active Blood Glucose Check, Bedside [RC] ONETIME Care 05/02/21 11:44 Active EKG 12 Lead [EKG Documentation Completion] [RC] STAT Care 05/02/21 11:44 Active NIH Stroke Scale [RC] ASDIRECTED Care 05/02/21 11:45 Active Oxygen Therapy [RC] PRN Care 05/02/21 14:10 Active Peripheral IV Care [RC] . DIRECTED Care 05/02/21 11:45 Active Up With Assistance [RC] ASDIRECTED Care 05/02/21 14:10 Active VTE/DVT Education [RC] PER UNIT ROUTINE Care 05/02/21 14:10 Active Vital Signs [RC] Q4H Care 05/02/21 14:10 Active OT Evaluation and Treatment [CONS] Routine Cons 05/02/21 14:10 Active PT Evaluation and Treatment [CONS] Routine Cons 05/02/21 14:10 Active Regular Diet [DIET] Diet 05/02/21 Dinner Active CULTURE BLOOD [BC] Stat Lab 05/02/21 12:15 Received CULTURE BLOOD [BC] Stat Lab 05/02/21 12:15 Received Enoxaparin [Lovenox] Med 05/02/21 15:00 Active 30 mg SUBCUT DAILY Ondansetron [Zofran ODT] Med 05/02/21 14:10 Active 4 mg PO Q4H PRN Potassium Chloride [Klor-Con 10] Med 05/02/21 15:00 Once 40 meq PO ONETIME ONE oxyCODONE Med 05/02/21 14:10 Active 5 mg PO Q4H PRN Blood Culture x2 Reflex Set [OM.PC] Stat Oth 05/02/21 11:44 Ordered Peripheral IV Insertion Adult [OM.PC] Stat Oth 05/02/21 11:45 Ordered Resuscitation Status Routine Resus Stat 05/02/21 14:10 Ordered Medication Orders Enoxaparin Sodium (Enoxaparin 30 Mg/0.3 Ml Syringe) 30 mg SUBCUT DAILY KAYA Ondansetron HCl (Ondansetron 4 Mg Tab.Dis) 4 mg PO Q4H PRN PRN Reason: nausea, able to take PO Oxycodone HCl (Oxycodone 5 Mg Tab) 5 mg PO Q4H PRN PRN Reason: Pain (moderate 4-6) Potassium Chloride (Potassium Chloride 10 Meq Tab.Er) 40 meq PO ONETIME ONE Stop: 05/02/21 15:01 Assessment/Plan Comment:: Adult failure to thrive Admit patient to the medical floor. We will order physical and occupational therapy Case management to assist with SNF placement. Will offer nutrition supplementation Generalized weakness and debility PT and OT to eval and treat Hypertension Resume novasc Will discontinue the thiazide diuretic and start metoprolol given that he is becoming dehydrated easily while on the the medication Hypothyroidism On synthroid. Full CODE STATUS As per patient wishes DVT prophylaxis Subcu Lovenox Patient will need more than 2 midnight stays before he can be accepted into a SNF. 05/08/21 patient requires prolonged p.t and ot and assist with toileting ,eating , med managment and cont monitoring of weight /vss and medical measures. weakness to point of needing one to assist but balance hearing and cognitive abilities limited. boh Onset of Symptoms: Reports: Gradual Duration of Symptoms: Reports: Week(s):, Chronic Improves with: Reports: Other (therapy ) Associated Symptoms: Reports: Confusion, Shortness of Breath - Related Data Allergies/Adverse Reactions: Allergies Allergy/AdvReac Type Severity Reaction Status Date / Time atorvastatin [From Lipitor] AdvReac Muscle Verified 05/08/21 09:17 Aches Home Medications: Home Meds Chlorthalidone 25 mg PO DAILY 11/11/17 [History] Pembrolizumab [Keytruda] 1 dose IV .[id number] 11/11/17 [History] Levothyroxine 12.5 mcg PO ACBREAKFAST 06/18/20 [History] Levothyroxine [Synthroid] 50 mcg PO ACBREAKFAST 06/18/20 [History] Aspirin [Davey Chewable Aspirin] 81 mg PO DAILY 04/30/21 [History] Magnesium Oxide 250 mg PO DAILY 04/30/21 [History] Multivitamin [Multi-Vitamin Daily] 1 tab PO DAILY 04/30/21 [History] Docusate Sodium/Sennosides [Senokot-S] 1 each PO BID 30 Days #60 tablet 05/01/21 [Rx] Lactose-Reduced Food [Ensure Active High Protein] 414 ml PO TID 30 Days #90 liquid 05/01/21 [Rx] polyethylene glycoL 3350 [MiraLAX] 17 gm PO DAILY 30 Days #30 packet 05/01/21 [Rx] Docusate Sodium/Sennosides [Senna Plus] 1 tab PO BID tablet 05/08/21 [Rx] Levothyroxine 12.5 mcg PO ACBREAKFAST tablet 05/08/21 [Rx] Multivitamin/Iron/Folic Acid [One Daily Multivitamin-Iron Tb] 1 each PO ACLUNCH #30 tablet 05/08/21 [Rx] Patient's Own Medication [Ptom] 0 each PO BID each 05/08/21 [Rx] Sennosides [Evac-U-Gen] 8.6 mg PO ACLUNCH 30 Days #30 tablet 05/08/21 [Rx] Thiamine HCl [Vitamin B-1] 50 mg PO ACLUNCH #30 tablet 05/08/21 [Rx] amLODIPine [Norvasc] 7.5 mg PO DAILY 05/08/21 [History] amLODIPine [Norvasc] 7.5 mg PO DAILY tablet 05/08/21 [Rx] Past Medical History HEENT History: Reports: Impaired Vision, Other (See Below) Other HEENT History: WEARS CORRECTIVE LENS Cardiovascular History: Reports: High Cholesterol, Hypertension Respiratory History: Reports: None Gastrointestinal History: Reports: Chronic Constipation, Other (See Below) Other Gastrointestinal History: S/P HYPOKALEMIA. RIGHT INGUINAL HERNIA Genitourinary History: Reports: Other (See Below) Other Genitourinary History: HX OF URINARY CA Musculoskeletal History: Reports: Fracture Other Musculoskeletal History: HX OF FRACTURE IN RIGHT ARM Neurological History: Reports: None Psychiatric History: Reports: Anxiety Endocrine/Metabolic History: Reports: Hypothyroidism Hematologic History: Reports: None Immunologic History: Reports: Immunosuppression Oncologic (Cancer) History: Reports: Bladder Dermatologic History: Reports: Other (See Below) Other Dermatologic History: HX OF HERPES ZOSTER - Infectious Disease History Infectious Disease History: Reports: Influenza, Measles - Past Surgical History Head Surgeries/Procedures: Reports: None HEENT Surgical History: Reports: Adenoidectomy, Tonsillectomy Cardiovascular Surgical History: Reports: None Respiratory Surgical History: Reports: None GI Surgical History: Reports: Colonoscopy Male Surgical History: Reports: None Endocrine Surgical History: Reports: None Neurological Surgical History: Reports: None Musculoskeletal Surgical History: Reports: None Oncologic Surgical History: Reports: None Dermatological Surgical History: Reports: None Social & Family History - Family History Family Medical History: No Pertinent Family History - Tobacco Use Tobacco Use Status *Q: Never Tobacco User - Caffeine Use Caffeine Use: Reports: Tea Other Caffeine Use: 'ONCE IN AWHILE' - Recreational Drug Use Recreational Drug Use: No - Living Situation & Occupation Living situation: Reports: , with Family Occupation: Retired H&P Review of Systems - Review of Systems: Review Of Systems: See Below General: Reports: No Symptoms HEENT: Reports: No Symptoms Pulmonary: Reports: Shortness of Breath Cardiovascular: Reports: Other (balance and weakness) Gastrointestinal: Reports: Anorexia Genitourinary: Reports: No Symptoms Musculoskeletal: Reports: No Symptoms Skin: Reports: No Symptoms Psychiatric: Reports: No Symptoms, Confusion Neurological: Reports: No Symptoms Hematologic/Lymphatic: Reports: No Symptoms Immunologic: Reports: No Symptoms Exam - Exam Exam: See Below - Vital Signs Vital Signs: Last Vital Signs Temp 36.7 C 05/08/21 07:43 Pulse 76 05/08/21 07:43 Resp 20 05/08/21 07:43 BP 150/60 H 05/08/21 08:20 Pulse Ox 98 05/08/21 07:43 Weight: 60.963 kg - Exam General: Alert, Oriented, 4 HEENT: PERRLA, Hearing Intact, Mucosa Moist & [place], Nares Patent, Normal Nasal Septum, Posterior Pharynx Clear, Conjunctiva Clear, EOMI, EACs Clear, TMs Clear Neck: Supple, Trachea Midline, 2 Lungs: Clear to Auscultation, Normal Respiratory Effort Cardiovascular: Regular Rate, Regular Rhythm GI/Abdominal Exam: Normal Bowel Sounds, Soft, Non-Tender, No Organomegaly, No Distention, No Abnormal Bruit, No Mass, Pelvis Stable (Male) Exam: No Hernia, Normal Inspection, Normal Prostate, Circumcised Rectal (Males) Exam: Normal Exam, Normal Rectal Tone, Prostate Normal Back Exam: Normal Inspection, Full Range of Motion, NT Extremities: Normal Inspection, Normal Range of Motion, Non-Tender, No Pedal Edema, Normal Capillary Refill Skin: Warm, Dry, Intact Neurological: Cranial Nerves Intact, Reflexes Equal Bilateral Neuro Extensive - Mental Status: Alert, Oriented x3, Normal Mood/Affect, Normal Cognition Neuro Extensive - Motor, Sensory, Reflexes: CN II-XII Intact, Normal Gait, Normal Reflexes Psychiatric: Alert, Normal Affect, Normal Mood - Problem List (1) FTT (failure to thrive) in adult SNOMED Code(s): 817400704 ICD Code: R62.7 - ADULT FAILURE TO THRIVE Status: Acute Priority: Medium Current Visit: No Onset Date: ~05/01/21 (2) Constipation SNOMED Code(s): 84967320 ICD Code: K59.00 - CONSTIPATION, UNSPECIFIED Status: Chronic Priority: Medium Current Visit: No Onset Date: ~05/03/21 Qualifiers: Qualifiers: slow transit constipation Qualifiers: [id number] Qualifiers: [id number] (3) Severe protein-calorie malnutrition SNOMED Code(s): 732153918, 989178838, 103272567 ICD Code: E43 - UNSPECIFIED SEVERE PROTEIN-CALORIE MALNUTRITION Status: Chronic Priority: Medium Current Visit: No Onset Date: ~05/01/21 (4) Hypokalemia SNOMED Code(s): 28980261 ICD Code: E87.6 - HYPOKALEMIA Status: Acute Priority: Medium Current Visit: No Onset Date: ~05/01/21 Problem Details: resolved (5) HTN (hypertension) SNOMED Code(s): 34691604 ICD Code: I10 - ESSENTIAL (PRIMARY) HYPERTENSION Status: Acute Priority: Low Current Visit: No Onset Date: ~05/01/21 (6) Altered mental status SNOMED Code(s): 687367614 ICD Code: R41.82 - ALTERED MENTAL STATUS, UNSPECIFIED Status: Acute Priority: Medium Current Visit: No Onset Date: ~05/01/21 Problem Details: delerioum cleared but still mod blankness and confusion Qualifiers: Qualifiers: disorientation Qualifiers: [id number] Qualifiers: [id number] Problem List Initiated/Reviewed/Updated: Yes Assessment/Plan Comment:: Adult failure to thrive/Severe protein calorie malnutrition Consult to physical therapy and Occupational Therapy, consult social work for placement. Patient is agreeable for placement. Appreciate social services technician input. We will continue having ongoing discussions with daughter about sources for placement. Continue nutritional supplementation. Generalized weakness and debility PT and OT to eval and treat Hypertension continue novasc 7.5 discontinued thiazide diuretic as patient appears to have difficulty maintaining volume status. Hyponatremia Mild, improved with fluids, likely secondary to hypovolemic hyponatremia, sodium 132 05/05/21 no need for further monitoring given patient's increased intake Thiazide diuretic could have been contributing - discontinued Hypothyroidism Continue Synthroid Chronic constipation Continue with fiber and laxative Encourage fluid intake Full CODE STATUS As per patient wishes DVT prophylaxis Subcu Lovenox Patient is now medically stable for discharge, awaiting placement. med list reviewed and will cont current meds and treatments for weakness and balance problems . patient high risk for fall sec to cogn. impairment and should have slums done ; but needs assistance and unlikely to get to point of return to home. snf needed. boh Subjective Update: 05/13/21 donald doing well overall weakness continues but making progress going farther with less assist. eating much better and daughter cont. to suppliment with snacks on current plan. abd issues better but gassy and belches a bit but no constipation and or bad pain/bloating . bms once sometimes 2 x day. no signs infection or focal weakness and cognitively brighter and more interactive. p.e. no changes. lab none. assess: 1// weakness better.cont p/t o/t 2// nutrition better ftt improved. 3// abd pain bloating constipation better. 4// dementia more in tune with discussion and interacting well with staff and daughter. increased activity some. boh Functional Status: Reports: Pain Controlled, Tolerating Diet, Ambulating, Urinating - Review of Systems General: Denies: Fever, Weakness, Fatigue, Malaise, Chills HEENT: Reports: No Symptoms Pulmonary: Denies: Cough Cardiovascular: Denies: Chest Pain, Dyspnea on Exertion, Lightheadedness Gastrointestinal: Denies: Abdominal Pain, Constipation, Difficulty Swallowing, Nausea, Vomiting Genitourinary: Denies: Frequency, Urgency Musculoskeletal: Reports: No Symptoms Skin: Denies: Cyanosis, Jaundice, Pallor, Diaphoresis Neurological: Denies: Confusion, Difficulty Walking, Weakness Psychiatric: Denies: Depression, Anxiety, Agitation - Patient Data Vitals - Most Recent: Last Vital Signs Temp 35.6 C L 05/14/21 20:33 Pulse 66 05/14/21 20:33 Resp 20 05/14/21 20:33 BP 144/80 H 05/14/21 20:33 Pulse Ox 98 05/14/21 20:33 Weight - Most Recent: 61.779 kg Med Orders - Current: Current Medications Amlodipine Besylate (Amlodipine 5 Mg Tab) 7.5 mg PO DAILY [facility] Last Admin: 05/14/21 08:49 Dose: 7.5 mg Documented by: Aspirin (Aspirin 81 Mg Tab.Chew) 81 mg PO DAILY [facility] Last Admin: 05/14/21 08:50 Dose: 81 mg Documented by: Bisacodyl (Bisacodyl 10 Mg Supp) 10 mg RECTAL DAILY PRN PRN Reason: constipation Enoxaparin Sodium (Enoxaparin 40 Mg/0.4 Ml Syringe) 40 mg SUBCUT DAILY [facility] Last Admin: 05/14/21 08:51 Dose: 40 mg Documented by: Levothyroxine Sodium (Levothyroxine 50 Mcg Tab) 50 mcg PO ACBREAKFAST [facility] Last Admin: 05/15/21 05:48 Dose: 50 mcg Documented by: Levothyroxine Sodium (Levothyroxine 25 Mcg Tab) 12.5 mcg PO ACBREAKFAST [facility] Last Admin: 05/15/21 05:50 Dose: 12.5 mcg Documented by: Magnesium Oxide (Magnesium Oxide 250 Mg Tab) 250 mg PO DAILY@1200 [facility] Last Admin: 05/14/21 12:42 Dose: 250 mg Documented by: Multivitamins/Minerals/Vitamin C (Multivitamin Tab) 1 tab PO DAILY [facility] Last Admin: 05/14/21 08:50 Dose: 1 tab Documented by: Ondansetron HCl (Ondansetron 4 Mg Tab.Dis) 4 mg PO Q4H PRN PRN Reason: nausea, able to take PO Psyllium Husk ( Metamucil) Powder Sugar Free Own Med 0 each PO BID@0900,1800 [facility] Last Admin: 05/14/21 17:37 Dose: 1 each Documented by: Polyethylene Glycol (Polyethylene Glycol 3350 Powder 17 Gm Packet) 17 gm PO DAILY [facility] Last Admin: 05/14/21 08:47 Dose: 17 gm Documented by: Potassium Chloride (Potassium Chloride 10 Meq Tab.Er) 40 meq PO BIDMEALS [facility] Last Admin: 05/14/21 17:37 Dose: 40 meq Documented by: Senna/Docusate Sodium (Docusate Sodium/Sennosides 50-8.6 Mg Tab) 1 tab PO BID [facility] Last Admin: 05/14/21 20:10 Dose: 1 tab Documented by: Thiamine HCl (Thiamine 100 Mg Tab) 100 mg PO BEDTIME [facility] Last Admin: 05/14/21 20:10 Dose: 100 mg Documented by: Discontinued Medications Psyllium Husk ( Metamucil) Powder Sugar Free Own Med 0 each PO BID [facility] Last Admin: 05/09/21 08:16 Dose: 1 each Documented by: - Exam Quality Assessment: Denies: Supplemental Oxygen General: Reports: Alert, Oriented, Cooperative, No Acute Distress HEENT: Reports: Pupils Equal, Pupils Reactive, EOMI, Mucous Membr. Moist/[place] Neck: Reports: Supple Lungs: Reports: Clear to Auscultation, Normal Respiratory Effort Cardiovascular: Reports: Regular Rate, Regular Rhythm GI/Abdominal Exam: Normal Bowel Sounds, Soft, Non-Tender, No Organomegaly, No Distention (Male) Exam: Deferred Rectal (Males) Exam: Deferred Back Exam: Reports: Normal Inspection, Full Range of Motion Extremities: Normal Inspection, Normal Range of Motion, Non-Tender, No Pedal Edema, Normal Capillary Refill Skin: Reports: Warm, Dry, Intact Neurological: Reports: No New Focal Deficit Psy/Mental Status: Reports: Alert, Normal Affect, Normal Mood
[2021-05-15] MEDS: Potassium Chloride 10 MEQ Tab.ER PO SCH (09:59)
[2021-05-15] MEDS: amLODIPine 5 MG Tab PO SCH (10:00)
[2021-05-15] MEDS: PSYLLIUM HUSK PO SCH (10:03)
[2021-05-15] MEDS: Multivitamin Tab PO SCH (10:03)
[2021-05-15] MEDS: Aspirin 81 MG Tab.Chew PO SCH (10:03)
[2021-05-15] MEDS: Polyethylene Glycol 3350 Powder 17 GM Packet PO SCH (10:04)
[2021-05-15] MEDS: Enoxaparin 40 MG/0.4 ML Syringe SUBCUT SCH (10:04)
== END 2021-05-15 14:00 | DRG 947 ==
LOC: DL.MS 11:39
PROVIDERS: ADMIT Pediatrics; ATTEND Internal Medicine
DX: R53.81 Other malaise (principal); E43 Unspecified severe protein-calorie malnutrition; R62.7 Adult failure to thrive; F03.90 Unspecified dementia, unspecified severity, without behavioral disturbance, psychotic disturbance, mood disturbance, and anxiety; I10 Essential (primary) hypertension; E87.6 Hypokalemia; E03.9 Hypothyroidism, unspecified; K59.01 Slow transit constipation; R41.0 Disorientation, unspecified; H54.7 Unspecified visual loss; E78.00 Pure hypercholesterolemia, unspecified; F41.9 Anxiety disorder, unspecified; E06.3 Autoimmune thyroiditis; E03.8 Other specified hypothyroidism; Z79.890 Hormone replacement therapy; Z79.82 Long term (current) use of aspirin; Z79.899 Other long term (current) drug therapy; Z68.20 Body mass index [BMI] 20.0-20.9, adult
CPT/HCPCS: 97116-GP; 97162-GP; 97165-GO; 97530-GO; 97535-GO; A9270-GY; J1650